=== PATIENT | female | born 1965 | race Caucasian/White ===

== ENCOUNTER 2020-10-02 15:42 | Inpatient (IN) | payer OTHER, SELFPAY ==
[2020-10-02] MEDS ORDERED: ASPIRIN 81 MG CHEWABLE TABLET ONE (20:30)
[2020-10-02] MEDS ORDERED: NITROGLYCERIN 0.4 MG/TAB SL ONE (20:31)
--- NOTE | 2020-10-02 20:32 | RAD REPORT ---
EXAM DESCRIPTION: Florencio Single View10/02/2020 8:25 pm CLINICAL HISTORY: Chest pain COMPARISON: 2017 FINDINGS: The lungs appear clear of acute infiltrate. The heart is normal size IMPRESSION: No acute abnormalities displayed
[2020-10-02 20:33] LABS: Absolute Lymphocytes (CBC) 2.1 K/uL (0.7-4.9); Basophils % 0.8 % (0-1.3); Hematocrit 40.8 % (36.0-45.0); Lymphocytes % 26.7 % (15.3-44.8); MPV 9.2 fL (7.6-11.3); RBC Red Blood Cell Count 4.69 M/uL (3.86-4.86)
[2020-10-02 20:34] LABS: Protime INR 0.93
[2020-10-02 20:48] LABS: ALT/SGPT 24 U/L (12-78); AST/SGOT 14 U/L (15-37); Albumin 3.4 g/dL (3.4-5.0); Alkaline Phosphatase 92 U/L (45-117); BUN Blood Urea Nitrogen 16 mg/dL (7-18); Bicarbonate 28 mmol/L (21-32); Bilirubin Direct < 0.1 mg/dL (0-0.2); Bilirubin Total 0.2 mg/dL (0.2-1.0); Glucose Level 114 mg/dL (74-106); Magnesium 2.2 mg/dL (1.8-2.4); NT PRO-BNP 124 pg/mL (<125); Protein, Total 7.5 g/dL (6.4-8.2); Sodium Level 144 mmol/L (136-145); Troponin (Emerg Dept Use Only) < 0.02 ng/mL (0.0-0.045)
--- NOTE | 2020-10-02 21:19 | RAD REPORT ---
EXAM DESCRIPTION: US - Abdomen Exam Limited - 10/02/2020 8:49 pm CLINICAL HISTORY: Abdominal pain. COMPARISON: None. FINDINGS: Multiple gallstones are present. Gallbladder wall is not thickened. Mild gallbladder diste ntion The biliary tree is normal caliber. IMPRESSION: Cholelithiasis without evidence cholecystitis Mild gallbladder distention
--- NOTE | 2020-10-02 22:50 | ER ---
Nurse's Notes [facility] Name: Maylin Carlton Age: 55 yrs Sex: Female : 1965 Arrival Date: 10/02/2020 Time: 15:42 Bed 26 Private MD: Diagnosis: Chest pain, unspecified;Cholelithiasis Presentation: 10/02 15:56 Chief complaint: Patient states: Mid CP that radiates into back off/on for 2 days, ll1 worse today. + SOB. No dizziness. Coronavirus screen: Client denies travel out of the [place] in the last 14 days. difficulty breathing, shortness of breath, Client presents with at least one sign or symptom that may indicate coronavirus-19. Standard/surgical mask placed on the client. Ebola Screen: Patient denies travel to an Ebola-affected area in the 21 days before illness onset. Initial Sepsis Screen: Does the patient meet any 2 criteria? No. Patient's initial sepsis screen is negative. Does the patient have a suspected source of infection? No. Patient's initial sepsis screen is negative. Risk Assessment: Do you want to hurt yourself or someone else? Patient reports no desire to harm self or others. Onset of symptoms was October 01, 2020. 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 - Social history:: Smoking status: Patient/guardian denies using tobacco, Stopped _ months ago .5. Screenin:07 Abuse screen: Denies threats or abuse. Denies injuries from another. Nutritional rr5 screening: No deficits noted. Tuberculosis screening: No symptoms or risk factors identified. Fall Risk IV access (20 points). Total Jarrell Fall Scale indicates No Risk (0-24 pts). Assessment: 20:30 General: Appears in no apparent distress. uncomfortable, Behavior is calm, cooperative, rr5 appropriate for age. Pain: Complains of pain in chest Pain radiates to back Pain currently is 6 out of 10 on a pain scale. Quality of pain is described as aching, Pain began gradually, Is intermittent. Neuro: Level of Consciousness is awake, alert, obeys commands, Oriented to person, place, time. Cardiovascular: Reports chest pain, Capillary refill < 3 seconds Patient's skin is warm and dry. Respiratory: Airway is patent Respiratory effort is even, unlabored, Respiratory pattern is regular, symmetrical. GI: No signs and/or symptoms were reported involving the gastrointestinal system. : No signs and/or symptoms were reported regarding the genitourinary system. EENT: No signs and/or symptoms were reported regarding the EENT system. Derm: Skin is intact, is healthy with good turgor, Skin is pink, warm \T\ dry. Musculoskeletal: Circulation, motion, and sensation intact. Capillary refill < 3 seconds. 20:53 Reassessment: Patient appears in no apparent distress at this time. Patient is alert, rr5 oriented x 3, equal unlabored respirations, skin warm/dry/pink. Patient states symptoms have improved. Pain: Pain currently is 2 out of 10 on a pain scale. 22:00 Reassessment: Patient appears in no apparent distress at this time. Patient and/or rr5 family updated on plan of care and expected duration. Pain level reassessed. Patient states feeling better. Patient states symptoms have improved. 23:30 Reassessment: Patient appears in no apparent distress at this time. Patient is alert, rr5 oriented x 3, equal unlabored respirations, skin warm/dry/pink. hospitalist at bedside. Vital Signs: 15:56 BP 157 / 100; Pulse 79; Resp 18; Temp 97.7; Pulse Ox 97% on R/A; Weight 99.79 kg; ll1 Height 5 ft. 0 in. (152.40 cm); Pain 8/10; 20:20 BP 164 / 91 RA; Pulse 75; Resp 20; Pulse Ox 98% ; rr5 20:21 BP 184 / 105 LA; Pulse 96; Resp 21; Pulse Ox 97% ; rr5 21:05 BP 153 / 84; Pulse 90; Resp 20; Pulse Ox 98% ; rr5 22:00 BP 161 / 80; Pulse 96; Resp 17; Pulse Ox 98% ; rr5 23:00 BP 165 / 95; Pulse 99; Resp 18; Pulse Ox 100% ; rr5 10/03 00:00 BP 157 / 75; Pulse 92; Resp 19; Pulse Ox 98% ; rr5 00:45 BP 154 / 95; Pulse 68; Resp 18; Pulse Ox 96% ; rr5 01:04 BP 147 / 71; rr5 10/02 15:56 Body Mass Index 42.97 (99.79 kg, 152.40 cm) ll1 ED Course: 10/02 15:42 Patient arrived in ED. ds1 15:55 Arm band placed on. EKG completed in triage. Results shown to MD. ll1 15:57 Triage completed. ll1 19:54 Yoshi Villalobos, RN is Primary Nurse. rr5 19:55 Og King PA is PHCP. cp 19:55 Ignacio Espitia MD is Attending Physician. cp 20:00 Patient has correct armband on for positive identification. Placed in gown. Bed in low rr5 position. Call light in reach. property assessment monitor on. Pulse ox on. NIBP on. 20:06 Inserted saline lock: 20 gauge in left forearm, using aseptic technique. Blood rr5 collected. 20:25 XRAY Chest (1 view) In Process Unspecified. EDMS 20:30 ultrasound at bedside. rr5 20:49 US Abdomen Limited: RUQ/epigastric In Process Unspecified. EDMS 21:31 CT Aorta for Dissection In Process Unspecified. EDMS 22:49 Parveen Rahman MD is Hospitalizing Provider. cp 23:27 Urine collected: clean catch specimen, clear. rr5 10/03 00:39 No provider procedures requiring assistance completed. Patient admitted, IV remains in rr5 place. intact, No redness/swelling at site. Patient maintains SpO2 saturation greater than 95% on room air. Administered Medications: 10/02 20:19 Drug: Aspirin Chewable Tablet 324 mg Route: PO; rr5 21:20 Follow up: Response: No adverse reaction rr5 20:19 Drug: Nitroglycerin 0.4 mg Route: Sublingual; rr5 21:30 Follow up: Response: No adverse reaction rr5 Outcome: 22:49 Decision to Hospitalize by Provider. cp 10/03 00:46 Admitted to Med/surg accompanied by tech, room 208, with chart, Report called to diamond rr5 Condition: stable Instructed on the need for admit. 01:07 Patient left the ED. rr5 Signatures: Dispatcher [employer] EDVivian Bowman1 Og King PA PA cp Roque, Raymond, RN RN rr5 Stuart Camarillo, RN RN ll1
--- NOTE | 2020-10-02 22:50 | EDPHYS ---
Physician Documentation [facility] Name: Maylin Carlton Age: 55 yrs Sex: Female : 1965 Arrival Date: 10/02/2020 Time: 15:42 Bed 26 Private MD: ED Physician Ignacio Espitia HPI: 10/02 20:05 This 55 yrs old Female presents to ER via Ambulatory with complaints of Chest cp Pain. 20:05 The patient or guardian reports chest pain that is located primarily in the substernal cp area. 20:05 Onset: 2 day(s) ago. The pain radiates to upper back between shoulder blades. The chest cp pain is described as sharp. Duration: The patient or guardian reports multiple episodes, that wax and wane. 20:05 Associated signs and symptoms: Pertinent positives: abdominal pain, shortness of cp breath, Pertinent negatives: cough, diaphoresis, lower extremity pain, lower extremity swelling, syncope. 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 - Social history:: Smoking status: Patient/guardian denies using tobacco, Stopped _ months ago .5. ROS: 20:10 Constitutional: Negative for body aches, chills, fever, poor PO intake. cp 20:10 Eyes: Negative for injury, pain, redness, and discharge. cp 20:10 Neck: Negative for pain with movement, pain at rest, stiffness. 20:10 Cardiovascular: Positive for chest pain, of the substernal, Negative for edema, palpitations. 20:10 Respiratory: Negative for cough, shortness of breath, wheezing. 20:10 Abdomen/GI: Positive for abdominal pain, Negative for vomiting, diarrhea, constipation. 20:10 Back: Positive for radiated pain, of the middle of upper back, Negative for injury or acute deformity. 20:10 Neuro: Negative for altered mental status, headache, numbness, weakness. 20:10 All other systems are negative. Exam: 17:54 ECG was reviewed by the Attending Physician. kdr 20:15 Constitutional: The patient appears in no acute distress, alert, awake, cp non-diaphoretic, non-toxic, well developed, well nourished, obese. 20:15 Head/Face: Normocephalic, atraumatic. cp 20:15 Eyes: Periorbital structures: appear normal, Conjunctiva: normal, no exudate, no injection, Sclera: no appreciated abnormality, Lids and lashes: appear normal, bilaterally. 20:15 ENT: External ear(s): are unremarkable, Nose: is normal, Mouth: Lips: moist, Oral mucosa: moist, Posterior pharynx: Airway: no evidence of obstruction, patent. 20:15 Neck: ROM/movement: is normal, is supple, without pain, no range of motions limitations. 20:15 Chest/axilla: Inspection: normal, Palpation: crepitus, is not appreciated, tenderness, that is mild, of the mid-sternal area. 20:15 Cardiovascular: Rate: normal, Rhythm: regular, Pulses: Pulses are 2+ in right radial artery and left radial artery. Edema: is not appreciated, JVD: is not appreciated. 20:15 Respiratory: the patient does not display signs of respiratory distress, Respirations: normal, no use of accessory muscles, no retractions, labored breathing, is not present, Breath sounds: are clear throughout, no decreased breath sounds, no stridor, no wheezing. 20:15 Abdomen/GI: Inspection: obese Bowel sounds: active, all quadrants, Palpation: soft, in all quadrants, mild abdominal tenderness, in the epigastric area and right upper quadrant, rebound tenderness, is not appreciated, voluntary guarding, is not appreciated, involuntary guarding, is not appreciated. 20:15 Back: pain, that is mild, of the thoracic area, ROM is painful, with all movement, CVA tenderness, is absent. 20:15 Skin: cellulitis, is not appreciated, no rash present. 20:15 Neuro: Orientation: is normal, Mentation: is normal, Cerebellar function: is grossly normal, Motor: moves all fours, strength is normal, Sensation: is normal. Vital Signs: 15:56 BP 157 / 100; Pulse 79; Resp 18; Temp 97.7; Pulse Ox 97% on R/A; Weight 99.79 kg; ll1 Height 5 ft. 0 in. (152.40 cm); Pain 8/10; 20:20 BP 164 / 91 RA; Pulse 75; Resp 20; Pulse Ox 98% ; rr5 20:21 BP 184 / 105 LA; Pulse 96; Resp 21; Pulse Ox 97% ; rr5 21:05 BP 153 / 84; Pulse 90; Resp 20; Pulse Ox 98% ; rr5 22:00 BP 161 / 80; Pulse 96; Resp 17; Pulse Ox 98% ; rr5 23:00 BP 165 / 95; Pulse 99; Resp 18; Pulse Ox 100% ; rr5 10/03 00:00 BP 157 / 75; Pulse 92; Resp 19; Pulse Ox 98% ; rr5 00:45 BP 154 / 95; Pulse 68; Resp 18; Pulse Ox 96% ; rr5 01:04 BP 147 / 71; rr5 10/02 15:56 Body Mass Index 42.97 (99.79 kg, 152.40 cm) ll1 MDM: 10/02 19:59 Patient medically screened. 20:00 Differential diagnosis: acute myocardial infarction, chest wall pain, cholecystitis, pancreatitis, pulmonary embolus, stable angina, thoracic aortic disection, unstable angina. 22:00 The patient was given aspirin in the Emergency Department. 22:00 Data reviewed: vital signs, nurses notes, lab test result(s), EKG, radiologic studies, CT scan, plain films, ultrasound, and as a result, I will admit patient. 22:45 Physician consultation: Drake CARDOZO was contacted at 22:45, regarding admission, to the telemetry unit. patient's condition. 22:45 Counseling: I had a detailed discussion with the patient and/or guardian regarding: the historical points, exam findings, and any diagnostic results supporting the discharge/admit diagnosis, the presence of at least one elevated blood pressure reading (>120/80) during this emergency department visit, lab results, radiology results. 10/02 19:57 Order name: Basic Metabolic Panel [facility] 10/02 19:57 Order name: CBC with Diff; Complete Time: 21:15 [facility] 10/02 21:15 Interpretation: Normal except: RDW 15.4; EOSINOPHIL % 6.1. 10/02 19:57 Order name: LFT's; Complete Time: 21:15 [facility] 10/02 21:57 Interpretation: Normal except: AST 14; GLOB 4.1; A/G 0.8. 10/02 19:57 Order name: Magnesium; Complete Time: 21:15 [facility] 10/02 19:57 Order name: NT PRO-BNP; Complete Time: 21:15 [facility] 10/02 19:57 Order name: PT-INR; Complete Time: 21:15 [facility] 10/02 19:57 Order name: Troponin (emerg Dept Use Only); Complete Time: 21:15 [facility] 10/02 21:16 Interpretation: TROPED < 0.02; Reviewed. 10/02 19:58 Order name: Basic Metabolic Panel; Complete Time: 21:15 [facility] 10/02 21:16 Interpretation: Normal except: CL 112; GLUC 114; GFR 81; CA 8.0. 10/02 20:10 Order name: Lipase; Complete Time: 21:15 10/02 20:10 Order name: Urine Microscopic Only 10/02 20:26 Order name: COVID-19 : Document "Date of Symptom Onset" if Symptomatic. 10/02 21:36 Order name: SARS-COV-2 RT PCR; Complete Time: 21:56 [facility] 10/02 23:27 Order name: Urine Microscopic Only [facility] 10/02 19:57 Order name: XRAY Chest (1 view); Complete Time: 21:15 [facility] 10/02 19:57 Order name: EKG; Complete Time: 19:58 [facility] 10/02 19:57 Order name: Cardiac monitoring; Complete Time: 20:06 [facility] 10/02 19:57 Order name: EKG - Nurse/Tech; Complete Time: 20:06 [facility] 10/02 19:57 Order name: IV Saline Lock; Complete Time: 20:06 [facility] 10/02 19:57 Order name: Labs collected and sent; Complete Time: 20:12 [facility] 10/02 19:57 Order name: O2 Per Protocol; Complete Time: 20:12 [facility] 10/02 20:10 Order name: US Abdomen Limited: RUQ/epigastric; Complete Time: 21:56 10/02 21:56 Interpretation: Report reviewed. 10/02 20:28 Order name: CT Aorta for Dissection 10/02 23:27 Order name: Urine Microscopic Only [facility] 10/02 23:34 Order name: Urine Dipstick--Ancillary (enter results) [facility] 10/02 23:34 Order name: Urine --Ancillary (enter results) 2 10/03 00:09 Order name: CONS Physician Consult EDMS 10/02 19:57 Order name: O2 Sat Monitoring; Complete Time: 20:12 rr5 10/02 20:10 Order name: Blood Pressure Recheck: bilateral upper extremities; Complete Time: 20:19 cp 10/02 20:10 Order name: Urine Dipstick-Ancillary (obtain specimen); Complete Time: 23:32 cp 10/02 20:10 Order name: Urine Test (obtain specimen); Complete Time: 23:32 cp EC:54 Rate is 74 beats/min. Rhythm is regular, Normal Sinus Rhythm with No ectopy. QRS Goff kdr is Normal. IN interval is normal. QRS interval is normal. QT interval is normal. Clinical impression: Normal ECG. Administered Medications: 20:19 Drug: Aspirin Chewable Tablet 324 mg Route: PO; rr5 21:20 Follow up: Response: No adverse reaction rr5 20:19 Drug: Nitroglycerin 0.4 mg Route: Sublingual; rr5 21:30 Follow up: Response: No adverse reaction rr5 Disposition: 10/03 05:48 Co-signature as Attending Physician, Ignacio Espitia MD. ma2 Disposition: 10/02/20 22:49 Hospitalization ordered by Parveen Rahman for Observation. Preliminary diagnosis are Chest pain, unspecified, Cholelithiasis. - Bed requested for Telemetry/MedSurg (observation). - Status is Observation. rr5 - Condition is Stable. - Problem is new. - Symptoms have improved. Signatures: Dispatcher [employer] EDMN Mikael Sutherland MD MD kdr Og King PA PA cp Ignacio Espitia MD MD ma2 Dimitri De La Torre RN RN rv Yoshi Villalobos RN RN rr5 Stuart Camarillo RN RN ll1 Corrections: (The following items were deleted from the chart) 10/02 20:55 20:26 CORONAVIRUS ordered. EDMN EDMS 21:16 21:16 Normal except: CL 112; GLUC 114; GFR 81. cp cp 10/03 00:19 10/02 22:49 Hospitalization Ordered by Parveen Rahman MD for Observation. Preliminary rv diagnosis is Chest pain, unspecified; Cholelithiasis. Bed requested for Telemetry/MedSurg (observation). Status is Observation. Condition is Stable. Problem is new. Symptoms have improved. cp 10/03 01:07 00:19 10/02/2020 22:49 Hospitalization Ordered by Parveen Rahman MD for Observation. rr5 Preliminary diagnosis is Chest pain, unspecified; Cholelithiasis. Bed requested for Telemetry/MedSurg (observation). Status is Observation. Condition is Stable. Problem is new. Symptoms have improved. rv
[2020-10-02 23:40] LABS: Urine Blood TRACE (Negative); Urine Glucose NEGATIVE (Negative); Urine Protein NEGATIVE (NEG)
[2020-10-03 00:03] LABS: Urine Bacteria <20 /HPF (<20)
[2020-10-03] MEDS ORDERED: NITROGLYCERIN 0.4 MG/TAB SL PRN (01:48)
[2020-10-03] MEDS ORDERED: ACETAMINOPHEN 500 MG TAB PO PRN (01:48)
[2020-10-03] MEDS ORDERED: MORPHINE 2 MG/ML SYR IV PRN (01:48)
[2020-10-03] MEDS ORDERED: ONDANSETRON 4 MG/2 ML VIAL IV PRN (01:48)
[2020-10-03 02:12] VITALS: BMI 42.9
--- NOTE | 2020-10-03 03:05 | P.HP ---
Certification for Inpatient Patient admitted to: Observation With expected LOS: <2 Midnights Patient will require the following post-hospital care: None Practitioner: I am a practitioner with admitting privileges, knowledge of patient current condition, hospital course, and medical plan of care. Services: Services provided to patient in accordance with Admission requirements found in Title 42 Section 412.3 of the Code of Federal Regulations Patient History Date of Service: 10/02/20 Reason for admission: chest pain History of Present Illness: Ms. Carlton is a 55 yo female with asthma who presents with 8/10 intermittent left sided squeezing chest pain radiating to her back that started when she was sitting down. This has been happening for the past 2 days. No relief with antacids. She reports SOB. She denies lightheadedness, diaphoresis, nausea, vomiting, dizziness, palpitations. She used to smoke 1ppd, quit 2 weeks ago. Denies family history of heart disease. No previous diagnosis of HTN, but BP is elevated on admission. CXR wnl. Abdominal ultrasound with cholelithiasis and no evidence of cholecystitis. Allergies No Known Allergies Allergy (Verified 10/03/20 01:56) Home Medications: Unobtainable 10/03/20 - Past Medical/Surgical History Has patient received pneumonia vaccine in the past: No Diabetic: No -: Asthma - Social History Smoking Status: Former smoker Alcohol use: No CD- Drugs: No Caffeine use: No Place of Residence: Home Review of Systems General: Unremarkable Eyes: Unremarkable ENT: Unremarkable Respiratory: Shortness of Breath, As per HPI Cardiovascular: Chest Pain, As per HPI Gastrointestinal: Unremarkable Genitourinary: Unremarkable Musculoskeletal: Unremarkable Integumentary: Unremarkable Neurological: Unremarkable Lymphatics: Unremarkable Physical Examination - Vital Signs Temperature: 97.1 F Blood Pressure: 166/79 Pulse: 63 Respirations: 18 Pulse Ox (%): 98 - Physical Exam General: Alert, In no apparent distress, Oriented x3, Cooperative HEENT: Atraumatic, Normocephalic, PERRLA, Mucous membr. moist/pink, EOMI, Sclerae nonicteric Neck: Supple, 2+ carotid pulse no bruit, JVD not distended, No Thyromegaly, No LAD Respiratory: Clear to auscultation bilaterally, Normal air movement Cardiovascular: No edema, Normal pulses, Regular rate/rhythm, Normal S1 S2, No gallops, No rubs, No murmurs Capillary refill: <2 Seconds Gastrointestinal: Normal bowel sounds, Soft and benign, Non-distended, No ascites, No tenderness, No masses, No rebound, No guarding Musculoskeletal: No clubbing, No swelling, No contractures, No erythema, No tenderness, No warmth Integumentary: No rashes, No breakdown, No significant lesion, No tenderness/swelling, No erythema, No warmth, No cyanosis Neurological: Normal gait, Normal speech, Normal strength at 5/5 x4 extr, Normal tone, Sensation intact, Cranial nerves 3-12 intact, Normal affect Lymphatics: No axilla or inguinal lymphadenopathy - Studies Laboratory Data (last 24 hrs) 10/02/20 20:04: Lipase 93 10/02/20 20:04: PT 10.7, INR 0.93 10/02/20 20:04: WBC 7.70, Hgb 13.7, Hct 40.8, Plt Count 254 10/02/20 20:04: Sodium 144, Potassium 4.0, BUN 16, Creatinine 0.75, Glucose 114 H, Magnesium 2.2, Total Bilirubin 0.2, AST 14 L, ALT 24, Alkaline Phosphatase 92 Assessment and Plan - Problems (Diagnosis) (1) Chest pain Current Visit: Yes Status: Acute Qualifiers: Chest pain type: unspecified Qualified Code(s): R07.9 - Chest pain, unspecified (2) Elevated blood pressure reading Current Visit: Yes Status: Acute (3) Asthma Current Visit: Yes Status: Chronic Qualifiers: Asthma severity: unspecified severity Asthma persistence: unspecified Asthma complication type: unspecified Qualified Code(s): J45.909 - Unspecified asthma, uncomplicated - Plan - no previous diagnosis of high blood pressure, BP elevated. no PCP. -ASA and nitroglycerin given in Er -lipid panel, TSH/T4, and A1c pending -morphine and nitro PRN for chest pain, metoprolol for BP -trend troponin and EKG, initial trops and EKG wnl -cardiology consulted Discharge Plan: Home Plan to discharge in: 24 Hours - Advance Directives Does patient have a Living Will: No Does patient have a Durable POA for Healthcare: No - Code Status/Comfort Care Code Status Assessed: Yes (full code) Critical Care: No Time Spent Managing Pts Care (In Minutes): 70
[2020-10-03 03:27] LABS: Thyroid Stimulating Hormone 2.78 uIU/mL (0.360-3.740)
[2020-10-03 04:23] LABS: Urine Appearance CLEAR; Urine Bilirubin NEGATIVE (NEG); Urine Blood NEGATIVE (Negative); Urine Color YELLOW; Urine Glucose NEGATIVE (Negative); Urine Protein NEGATIVE (NEG); Urine Specific Gravity >=1.030 (1.005-1.030); Urine pH 7.5 (5.0-7.0)
[2020-10-03 04:25] LABS: Urine Microscopic Reflex NO UMIC
[2020-10-03] MEDS ORDERED: METOPROLOL TAR 25 MG TAB PO SCH (06:00)
[2020-10-03] MEDS ORDERED: ENOXAPARIN 40 MG/0.4 ML SQ SCH (09:00)
[2020-10-03] MEDS ORDERED: ALBUTEROL INHALER 60 PUFF/8 GM IH PRN (09:52)
--- NOTE | 2020-10-03 10:08 | P.DS ---
Admission Date: 10/03/20 Discharge Date: 10/03/20 Disposition: ROUTINE DISCHARGE Discharge Condition: FAIR Reason for Admission: chest pain Brief History of Present Illness: History of Present Illness: Ms. Carlton is a 55 yo female with asthma who presents with 8/10 intermittent left sided squeezing chest pain radiating to her back that started when she was sitting down. This has been happening for the past 2 days. No relief with antacids. She reports SOB. She denies lightheadedness, diaphoresis, nausea, vomiting, dizziness, palpitations. She used to smoke 1ppd, quit 2 weeks ago. Denies family history of heart disease. No previous diagnosis of HTN, but BP is elevated on admission. CXR wnl. Abdominal ultrasound with cholelithiasis and no evidence of cholecystitis. Allergies Hospital Course: Patient admitted for left-sided chest pain. She admits to history of asthma. Chest pain was radiating to the shoulder and under the armpit. Pain significantly improved but now some ache in the axillary area. She is tolerating p.o. well. Serial set of cardiac enzymes were negative as well as unremarkable EKG. Physical examination today shows clear lungs with no evidence of wheezing. Patient will be discharged home today to follow with her PCP in 1 week. She has been advised to return back to the ED if recurrent chest pain. Vital Signs/Physical Exam: Temp Pulse Resp BP Pulse Ox 98.9 F 73 16 149/90 H 96 10/03/20 04:00 10/03/20 05:29 10/03/20 04:00 10/03/20 05:29 10/03/20 04:00 General: Alert, In no apparent distress, Oriented x3, Obese HEENT: Atraumatic, Normocephalic, PERRLA Neck: Supple, 2+ carotid pulse no bruit, JVD not distended Respiratory: Clear to auscultation bilaterally, Normal air movement Cardiovascular: No edema, Normal pulses, Regular rate/rhythm, Normal S1 S2 Capillary refill: <2 Seconds Gastrointestinal: Normal bowel sounds, Soft and benign, Non-distended, No ascites Musculoskeletal: No clubbing, No swelling Integumentary: No rashes, No breakdown Neurological: Normal gait, Normal speech, Normal strength at 5/5 x4 extr Laboratory Data at Discharge: WBC 7.70 K/uL (4.3-10.9) 10/02/20 20:04 Hgb 13.7 g/dL (12.0-15.0) 10/02/20 20:04 Hct 40.8 % (36.0-45.0) 10/02/20 20:04 Plt Count 254 K/uL (152-406) 10/02/20 20:04 PT 10.7 SECONDS (9.5-12.5) 10/02/20 20:04 INR 0.93 10/02/20 20:04 Sodium 144 mmol/L (136-145) 10/02/20 20:04 Potassium 4.0 mmol/L (3.5-5.1) 10/02/20 20:04 BUN 16 mg/dL (7-18) 10/02/20 20:04 Creatinine 0.75 mg/dL (0.55-1.3) 10/02/20 20:04 Glucose 114 mg/dL (74-106) H 10/02/20 20:04 Magnesium 2.2 mg/dL (1.8-2.4) 10/02/20 20:04 Total Bilirubin 0.2 mg/dL (0.2-1.0) 10/02/20 20:04 AST 14 U/L (15-37) L 10/02/20 20:04 ALT 24 U/L (12-78) 10/02/20 20:04 Alkaline Phosphatase 92 U/L (45-117) 10/02/20 20:04 Troponin I < 0.02 ng/mL (0.0-0.045) 10/03/20 02:38 Lipase 93 U/L (73-393) 10/02/20 20:04 Home Medications: Albuterol Inhaler [Ventolin Inhaler*] 2 puff IH Q6H PRN hfa.aer.[email or web address] 10/03/20 Diet: Regular Activity: Ad kortney Followup: NONE,NONE [Primary Care Provider] - Physician Review: Patient Assessed, Agree with Above Assessment and Plan Time spent managing pt's care (in minutes): 35
[2020-10-03 10:17] VITALS: BP 184/92; TEMP 97.8
[2020-10-03 10:32] VITALS: O2SAT 96
--- NOTE | 2020-10-03 11:12 | EKG ---
Test Date: 2020-10-02 Test Time: 15:51:31 Special Events Manager: BENJAMIN MEASUREMENT RESULTS: Intervals: Rate: 74 UT: 140 QRSD: 78 QT: 390 QTc: 432 Winifred: P: 19 UT: 140 QRS: 52 T: 34 INTERPRETIVE STATEMENTS: Normal sinus rhythm Normal ECG Compared to ECG 08/11/2017 07:26:42 No significant changes Electronically Signed On 10-03-20 11:11:16 CDT by Cecilio Esparza
--- NOTE | 2020-10-03 13:15 | CON ---
Date of Consultation: 10/03/2020 Reason For Consultation: Chest pain. History Of Present Illness: Ms. Carlton is a 55-year-old woman without any significant past cardiac hi story. She has a history of obesity, asthma, hypertension for which she does not take any medicine. She came in last night with left lateral anterior chest pain that is sharp, stabbing, radiating to t he left shoulder did not feel like pressure, was not exertional. It lasted for 48 hours without any nausea, vomiting, diaphoresis, shortness of breath, PND, orthopnea, pedal edema, palpitations, or syn cope. She denied any fever or chills. She continues to have some chest pain, but it is much improve d. Yet, she has had a normal EKG, normal chest x-ray and normal CT angiogram of the chest and normal troponin, normal BNP. Past Medical History: As stated above. Review of Systems: Negative. Social History: Positive for tobacco, which she quit. Family History: Negative for heart disease. Physical Examination: Vital signs: Stable. She was afebrile. HEENT: Negative. Neck: Supple without adenopathy, JVD, thyromegaly, or bruit. Chest: Clear to auscultation and percussion. Cardiac: Revealed a regular rhythm and rate. No murmur, gallops, or rubs. Abdomen: Obese, but benign. Extremities: Revealed no clubbing, cyanosis, or edema. Diagnostic Data: Within normal limits. Impression And Plan: Ms. Carlton has low risk factors for heart disease including her obesity and her hypertension. Had a lipid profile, but I am assuming a lipid profile is at normal. Nevertheless, I am comfortable with her going home today. Make arrangements for her to have an echocardiogram ____ as an outpatient. This was discussed with the patient in detail. I think she needs to be on so me antihypertensive regimen and I will leave that up to Dr. Wasserman. JOE/PHYLLIS Voice ID: [id number] Report ID: [id number]
--- NOTE | 2020-10-03 18:20 | RAD REPORT ---
EXAM DESCRIPTION: CT - Angio Aorta For Dissection - 10/03/2020 6:34 am CLINICAL HISTORY: Back pain;Chest pain;SOB. COMPARISON: None. TECHNIQUE: CTA of the chest, abdomen, and pelvis was performed following intravenous administration of iodinated contrast. Oral contrast was not administered. Axial, coronal, and sagittal reconstructio ns were created and sent to PACS. 3D reconstructions were created on an independent workstation and sent to PACS for evaluation. This exam was performed according to our departmental dose-optimization program, which includes autom ated exposure control, adjustment of the mA and/or kV according to patient size and/or use of iterati ve reconstruction technique. FINDINGS: Vascular: No aortic aneurysm or dissection. No central pulmonary embolism. The major visce ral vessels are patent. Lungs and pleura: Small calcified granuloma in the left upper lobe, likely sequela of prior healed gr anulomatous disease. Normal right perifissural nodule/lymph node. No pulmonary consolidation. No pleu ral effusion. No pneumothorax. Mediastinum and neck: No mediastinal lymphadenopathy identified by CT size criteria. Unremarkable tobin earance of the thyroid gland. Cardiac: No cardiomegaly or pericardial effusion. Hepatobiliary: No concerning hepatic lesion identified. The hepatic and portal veins are patent. Smal l calcified gallstones in the gallbladder. No gallbladder wall thickness or surrounding inflammatory changes. No biliary ductal dilatation. Pancreas: Unremarkable. Spleen: Unremarkable. Gastrointestinal: No evidence of bowel obstruction or perienteric inflammation. The appendix is haley l. Small amount of fecal material in the colon. Adrenals: No abnormality identified in either adrenal gland. Renal: No concerning parenchymal abnormality in either kidney. No hydronephrosis or urolithiasis. Bladder/Reproductive: Unremarkable appearance of the urinary bladder by CT technique. Small uterine f ibroids. Lymphatics: No lymphadenopathy identified by CT size criteria. Musculoskeletal: No concerning osseous lesion identified. Fluid / peritoneum: No significant free fluid. No free intraperitoneal air identified. IMPRESSION 1. No aortic aneurysm or dissection. 2. No pulmonary consolidation or pleural effusion. 3. Cholelithiasis without evidence of acute cholecystitis by CT. No biliary ductal dilatation. Electronically signed by: Kasandra Grossman MD 10/02/2020 9:46 PM CDT Due to temporary technical issues with the PACS/Fluency reporting system, reports are being signed by the in house radiologists without review as a courtesy to insure prompt reporting. The interpreting radiologist is fully responsible for the content of the report.
== END 2020-10-03 11:50 | disposition home or self-care (01) | DRG 313 ==
LOC: ER 15:42 → ERHOLD 10-03 00:05 → 2ND 10-03 01:00 → OBSVTOIN 10-03 08:30
PROVIDERS: ADMIT Internal Medicine Nephrology; ATTEND Internal Medicine
DX: R07.9 Chest pain, unspecified (principal); Z68.41 Body mass index [BMI] 40.0-44.9, adult; E66.9 Obesity, unspecified; J45.909 Unspecified asthma, uncomplicated; R03.0 Elevated blood-pressure reading, without diagnosis of hypertension; Z87.891 Personal history of nicotine dependence; Z79.899 Other long term (current) drug therapy; Z20.822 Contact with and (suspected) exposure to COVID-19
CPT/HCPCS: 36415; 71045; 71275; 74175; 76705; 80048; 80076; 81003; 81015; 81025; 83036; 83690; 83735; 83880; 84439; 84443; 84484; 85025; 85610; 93005; 94760; 99285; G0378; J1650; Q9967; U0003

== ENCOUNTER 2023-03-09 13:09 | Emergency (ER) | payer OTHER ==
--- NOTE | 2023-03-09 14:30 | RAD REPORT ---
EXAM DESCRIPTION: RADChest Single View03/09/2023 2:08 pm CLINICAL HISTORY: Cough;Dyspnea COMPARISON: Chest Single View dated 10/02/2020; Chest Single View dated 08/11/2017; Chest Pa And Lat (2 Views) dated 08/20/2016; Chest Single View dated 06/24/2016 TECHNIQUE: Portable AP view of the chest. FINDINGS: Left Port-A-Cath in place with catheter tip projecting over the mid SVC. The lungs are tereza ar. No pneumothorax or effusion. The cardiomediastinal contours are unremarkable. IMPRESSION: No acute cardiopulmonary process.
--- NOTE | 2023-03-09 14:33 | ER ---
Nurse's Notes [facility] Name: Maylin Carlton Age: 57 yrs Sex: Female : 1965 Arrival Date: 03/09/2023 Time: 13:09 Bed IW1 Private MD: Diagnosis: Coronavirus infection, unspecified Presentation: 03/09 13:31 Chief complaint: Patient states: she has tested positive for COVID, but is a cancer ap3 patient and had her last Chemo treatment Monday03/06/23. Patient reports congestion, headache and shortness of breath. Coronavirus screen: Client reports previous positive COVID test result. Ebola Screen: No symptoms or risks identified at this time. Initial Sepsis Screen: Does the patient meet any 2 criteria? HR > 90 bpm. Does the patient have a suspected source of infection? No. Patient's initial sepsis screen is negative. Risk Assessment: Do you want to hurt yourself or someone else? Patient reports no desire to harm self or others. Onset of symptoms was March 09, 2023. 13:31 Method Of Arrival: Ambulatory ap3 13:31 Acuity: JODI 3 ap3 Triage Assessment: 13:35 General: Appears in no apparent distress. Behavior is cooperative, appropriate for age, ap3 anxious. Pain: Complains of pain in generalized body aches. EENT: Reports nasal congestion nasal discharge. Neuro: Level of Consciousness is awake, alert, obeys commands, Oriented to person, place, time, situation. Cardiovascular: Patient's skin is warm and dry. Respiratory: Reports shortness of breath Airway is patent Respiratory effort is even, unlabored, Respiratory pattern is regular, symmetrical, Onset: The symptoms/episode began/occurred gradually, the patient has mild shortness of breath. 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 - Social history:: Smoking status: Patient/guardian denies using tobacco, Stopped _ months ago 2. Screenin:36 [facility] ED Fall Risk Assessment (Adult) History of falling in the last 3 months, ap3 including since admission No falls in past 3 months (0 pts). Abuse screen: Denies threats or abuse. Nutritional screening: No deficits noted. Tuberculosis screening: No symptoms or risk factors identified. Assessment: 14:38 Cardiovascular: Rhythm is regular. ap3 14:38 Respiratory: Airway is patent Breath sounds are clear. ap3 Vital Signs: 13:31 Pulse 101; Resp 20; Temp 98.4; Pulse Ox 99% ; Weight 100.7 kg; Height 5 ft. 1 in. ; ap3 Pain 1/10; 13:36 BP 110 / 70; ap3 13:31 Body Mass Index 41.95 (100.70 kg, 154.94 cm) ap3 13:31 Pain Scale: Adult ap3 ED Course: 13:12 Patient arrived in ED. ts1 13:23 Rosa Yost FNP is PHCP. jh7 13:23 Agus Bob DO is Attending Physician. jh7 13:34 Triage completed. ap3 13:36 Arm band placed on right wrist. ap3 14:10 XRAY Chest (1 view) In Process Unspecified. EDMS 14:38 No provider procedures requiring assistance completed. Patient did not have IV access ap3 during this emergency room visit. 14:39 Provided Education on: discharge instructions. ap3 14:39 Patient has correct armband on for positive identification. ap3 Administered Medications: No medications were administered Medication: 13:36 VIS not applicable for this client. ap3 Outcome: 14:33 Discharge ordered by . Concepción 14:38 Discharged to home ambulatory, with family. ap3 14:38 Condition: good 14:38 Discharge instructions given to patient, family, Instructed on discharge instructions, follow up and referral plans. medication usage, Demonstrated understanding of instructions, follow-up care, medications, Prescriptions given X 2. 14:39 Patient left the ED. ap3 Signatures: Dispatcher [employer] EDMS Rose Robison RN RN ap3 Rosa Yost FNP FNP jh7 Simpson, Tanya, PAS PAS ts1
--- NOTE | 2023-03-09 14:33 | EDPHYS ---
Physician Documentation [facility] Name: Maylin Carlton Age: 57 yrs Sex: Female : 1965 Arrival Date: 03/09/2023 Time: 13:09 Bed IW1 Private MD: ED Physician Agus Bob HPI: 03/09 13:34 This 57 yrs old Female presents to ER via Ambulatory with complaints of Shortness Of jh7 Breath, Fever, Tested positive for covid. 13:34 The patient has shortness of breath with light activity. Onset: The symptoms/episode jh7 began/occurred yesterday. Associated signs and symptoms: Pertinent positives: non-productive cough, shortness of breath. Patient reports that she tested positive for COVID this morning. Complains of mild shortness of breath, cough, and fever a few days ago that has resolved. Reports that she had chemotherapy on Monday and wanted to get evaluated.. 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 - Social history:: Smoking status: Patient/guardian denies using tobacco, Stopped _ months ago 2. ROS: 13:34 Eyes: Negative for injury, pain, redness, and discharge, ENT: Negative for injury, jh7 pain, and discharge, Neck: Negative for injury, pain, and swelling, Cardiovascular: Negative for chest pain, palpitations, and edema, Abdomen/GI: Negative for abdominal pain, nausea, vomiting, diarrhea, and constipation, MS/Extremity: Negative for injury and deformity, Skin: Negative for injury, rash, and discoloration, Neuro: Negative for headache, weakness, numbness, tingling, and seizure. 13:34 Constitutional: Positive for malaise. 13:34 Respiratory: Positive for cough, shortness of breath. 13:34 All other systems are negative. Exam: 13:34 Constitutional: This is a well developed, well nourished patient who is awake, alert, jh7 and in no acute distress. Head/Face: Normocephalic, atraumatic. Eyes: Pupils equal round and reactive to light, extra-ocular motions intact. Lids and lashes normal. Conjunctiva and sclera are non-icteric and not injected. Cornea within normal limits. Periorbital areas with no swelling, redness, or edema. Neck: Trachea midline, no thyromegaly or masses palpated, and no cervical lymphadenopathy. Supple, full range of motion without nuchal rigidity, or vertebral point tenderness. No Meningismus. Cardiovascular: Regular rate and rhythm with a normal S1 and S2. No gallops, murmurs, or rubs. Normal PMI, no JVD. No pulse deficits. Respiratory: Lungs have equal breath sounds bilaterally, clear to auscultation and percussion. No rales, rhonchi or wheezes noted. No increased work of breathing, no retractions or nasal flaring. Abdomen/GI: Soft, non-tender, with normal bowel sounds. No distension or tympany. No guarding or rebound. No evidence of tenderness throughout. Skin: Warm, dry with normal turgor. Normal color with no rashes, no lesions, and no evidence of cellulitis. MS/ Extremity: Pulses equal, no cyanosis. Neurovascular intact. Full, normal range of motion. Neuro: Awake and alert, GCS 15, oriented to person, place, time, and situation. Motor strength 5/5 in all extremities. Sensory grossly intact. Normal gait. 13:34 Respiratory: the patient does not display signs of respiratory distress, Respirations: normal, Breath sounds: are clear throughout, Respiratory rate: 18 Vital Signs: 13:31 Pulse 101; Resp 20; Temp 98.4; Pulse Ox 99% ; Weight 100.7 kg; Height 5 ft. 1 in. ; ap3 Pain 1/10; 13:36 BP 110 / 70; ap3 13:31 Body Mass Index 41.95 (100.70 kg, 154.94 cm) ap3 13:31 Pain Scale: Adult ap3 MDM: 13:24 Patient medically screened. jh7 14:35 Differential diagnosis: Bronchitis pneumonia, COVID. Antibiotic administration: Not jh7 indicated. Data interpreted: Pulse oximetry: is 99 %. Interpretation: normal. Data reviewed: vital signs, nurses notes, radiologic studies, plain films. Care significantly affected by the following chronic conditions: Cancer. Counseling: I had a detailed discussion with the patient and/or guardian regarding the historical points, exam findings, and any diagnostic results supporting the discharge/admit diagnosis, to return to the emergency department if symptoms worsen or persist or if there are any questions or concerns that arise at home. ED course: The patient was calm, hemodynamically stable, and in no distress during her visit. Informed her that her chest x-ray was negative and that symptomatic treatment and rest at home would be appropriate. Advised her to follow-up with her PCP.. 03/09 13:39 Order name: XRAY Chest (1 view); Complete Time: 14:32 [facility] Administered Medications: No medications were administered Disposition: 18:30 Co-signature as Attending Physician, Agus Bob DO I was immediately available on-site ms3 in the Emergency Department for consultation in the care of the patient. Disposition Summary: 03/09/23 14:33 Discharge Ordered Location: Home [facility] Problem: new [facility] Symptoms: are unchanged [facility] Condition: Stable [facility] Diagnosis - Coronavirus infection, unspecified [facility] Followup: [facility] - With: Private Physician - When: 2 - 3 days - Reason: Recheck today's complaints Discharge Instructions: - Discharge Summary Sheet [facility] - COVID-19 [facility] - 10 Things You Can Do to Manage Your COVID-19 Symptoms at Home - [facility] (01/22/2021) [facility] Forms: - Medication Reconciliation Form [facility] - Thank You Letter [facility] - Patient Portal Instructions [facility] - Leadership Thank You Letter [facility] Prescriptions: - ProAir RespiClick 90 mcg/actuation Inhalation Aerosol Powder, Breath Activated - administer 2 puff by INHALATION route every 4 to 6 hours As needed as needed [facility] for shortness of breath; 1 Each; Refills: 0, Product Selection Permitted - Tessalon Perles 100 mg Oral Capsule - take 1 capsule by ORAL route every 8 hours As needed; 15 capsule; Refills: 0, jh7 Product Selection Permitted Signatures: Dispatcher [employer] Rose Adame RN RN ap3 Agus Bob DO DO ms3 Rosa Yost FNP DEVELOPMENT TECHNICIAN [facility]
[2023-03-09 15:10] VITALS: TEMP 98.4; O2SAT 99
[2023-03-09 15:15] VITALS: BP 110/70
== END 2023-03-09 14:39 | disposition home or self-care (01) ==
LOC: ER 13:09
DX: U07.1 COVID-19 (principal); I10 Essential (primary) hypertension
CPT/HCPCS: 71045; 99283

== ENCOUNTER 2024-08-04 06:48 | Inpatient (IN) | payer OTHER ==
--- OUTSIDE RECORDS SUMMARY | 2024-08-04 06:51 | XMS REPORT | Continuity of Care Document ---
Author Name Unknown Address [address] [facility] [address] [place] [address] [facility] Address [address] [facility] [place] [address] Care Team Providers Care Director Of Instructional Technology Name Role Phone [phone] Primary Care Physician Unavailab le SYSTEM, PROVIDER NOT IN Attending Clinician Unav ailable ARMAND WATKINS Attending Clinician Unavailable MD DANIELLE Attending Clinician Unavailab le LAB90 Attending Clinician Unavailable MONICA PITTS Attending Clinician Unavailable PILO DE JESUS Attending Clinician Unavailable LUCY DE GUZMAN Attending Clinician Unavailable NICK MIXON Attending Clinician UnavailIRLANDA Hassan Attending Clinician Unavailable NT90 Attending Clinician Unavailable RAFAL VIDAL Attending Clinician Unava ilGAEL Browning Attending Clinician Claudia Lola Lombardi Attending Clinician Unavailab Kel Holt Attending Clinician Unavail able Vianey Louie Attending Clinician Unavailable LOLA SCOTT Attending Clinician Unavailab le Physician, No Primary or Family Admitting Clinic mario Unavailable Payers Payer Name Policy Type Policy Number Effective Date Expirati on Date Source [employer] 94 9 [id number] 2024 00:00:00 Problems Condition Name Condition Details Condition Category Status Onset Date Resolution Date Last Treatment Date Treating Clinician Comments Source Primary hypertensi on Primary hypertensi on Disease Active 01-13 00:00: 00 Cece Guyold - Externa l Mild persistent asthma without complicati on (HHS-HCC) Mild persistent asthma without complicati on (HHS-HCC) Disease Active 01-13 00:00: 00 Cece Sefarzadold - Externa l Malignant neoplasm of cervix (multi HCC) Malignant neoplasm of cervix (multi HCC) Disease Active 01-13 00:00: 00 Cece Guyold - Externa l Allergies, Adverse Reactions, Alerts Allergy Name Allergy Type Status Severity Reaction(s) Onset Date Inactive Date Treating Clinician Comments Source No Known Allergie s DA Active U 04-04 00:00: 00 [facility] Social History Social Habit Start Date Stop Date Quantity Comments Source History of tobacco use 1994-05-10 00:00:00 Cigarette Smoker Cece Sabillon - External Gender identity Saniya Sabillon - External Sexual orientation K trae Sabillon - External ASSERTION Not Cece Sabillon - External Alcoholic beverage intake 2024-06-13 00:00:00 2024-06-13 00:00:00 Lifetime non-drinker (finding) Cece Sabillon - External Cigarettes smoked current (pack per day) - Reported 2024-06-13 00:00:00 2024-06-13 00:00:00 Cece Sabillon - External Cigarette pack-years 2024-06-13 00:00:00 2024-06-13 00:00:00 Cece Sabillon - External Tobacco use and exposure 2024-06-13 00:00:00 2024-06-13 00:00:00 Smokeless tobacco non-user Cece Sabillon - External History of Social function 2023-03-27 00:00:00 2023-03-27 00:00:00 Cece Sabillon - External Alcohol intake 2023-01-13 00:00:00 2023-01-13 00:00:00 Lifetime non-drinker (finding) Cece Sabillon - External Sex 2022-11-16 12:07:47 2022-11-16 12:07:47 Female (finding) Cece Sabillon - External Sex assigned at 1965 00:00:00 1965 00:00:00 Cece Sabillon - External Smoking Status Start Date Stop Date Source Smokes tobacco daily 2024-06-13 00:00:00 Cece Sabillon - External Medications Ordered Medication Name Filled Medication Name Start Date Stop Date Current Medication? Ordering Clinician Indication Dosage Frequency Signature (SIG) Comments Components Source Albuterol Sulfate 108 (90 Base) MCG/ACT inhalation AEROSOL POWDER, BREATH ACTIVATED 2023-07 14:26: 13 Yes Inhale into the lungs Cece medeiros Bupropion HCL XL 150 MG OR TB24 2023-07 00:00: 00 Yes [id number] 150mg QD Take 1 tablet (150 mg total) by mouth daily. Cece Campoa mala Losartan Potassium-H CTZ 100-12.5 MG oral Tablet 2023-07 00:00: 00 Yes [id number] 1{tbl} QD Take 1 tablet by mouth daily. Cece medeiros Albuterol HFA 108 (90 Base) MCG/ACT IN AERS 2023-07 00:00: 00 Yes [id number] 2{puff} Q.25D Inhale 2 puffs into the lungs every 6 hours as needed. Cece Campoa mala Losartan Potassium-H CTZ 100-12.5 MG oral Tablet 2023-07 0-30 00:00: 00 06-13 00:00 :00 No [id number] 1{tbl} QD Take 1 tablet by mouth daily. Cece Campoa mala Albuterol Sulfate 108 (90 Base) MCG/ACT inhalation AEROSOL POWDER, BREATH ACTIVATED 12-10 13:49: 19 Yes Inhale into the lungs Cece Campooswaldo medeiros Losartan Potassium 25 MG oral Tablet 6-03 00:00: 00 Yes [id number] 25mg QD Take 1 tablet (25 mg total) by mouth nightly as needed (for BP > 140/80). Cece medeiros Albuterol HFA 108 (90 Base) MCG/ACT IN [facility] 5-21 00:00: 00 Yes [id number] 2{puff} Q.25D Inhale 2 puffs into the lungs every 6 hours as needed. Cece medeiros Losartan Potassium-H CTZ 50-12.5 MG oral Tablet 4- 00:00: 00 Yes [id number] 1{tbl} Take 1 tablet by mouth daily. Cece medeiros Albuterol HFA 108 (90 Base) MCG/ACT IN [facility] 4- 00:00: 00 Yes [id number] 2{puff} Q.25D Inhale 2 puffs into the lungs every 6 hours as needed. Cece medeiros Albuterol HFA 108 (90 Base) MCG/ACT IN [facility] 2022-07 2- 00:00: 00 Yes [id number] 2{puff} Q.25D Inhale 2 puffs into the lungs every 6 hours as needed. Cece medeiros Pseudoeph-B romphen-DM 30-2-10 MG/5ML oral Syrup 2022-07 2- 00:00: 00 06-13 00:00 :00 No [id number] 10mL Q.25D Take 10 mL by mouth 4 times daily as needed. Cece medeiros Albuterol HFA 108 (90 Base) MCG/ACT IN [facility] 2022-07 0-30 00:00: 00 07-07 00:00 :00 No [id number] 2{puff} Q.25D Inhale 2 puffs into the lungs every 6 hours as needed. Cece medeiros Lisinopril 10 MG oral Tablet 2022-07 0-25 00:00: 00 11-05 00:00 :00 No [id number] 20mg TAKE 2 TABLETS BY MOUTH EVERY DAY Cece medeiros Naproxen 500 MG oral Tablet 2022-07 08:46: 50 Yes 500mg Take 1 tablet (500 mg total) by mouth. Cece medeiros Naproxen 500 MG oral Tablet 2022-07 00:00: 00 11-05 00:00 :00 No [id number] TAKE 1 TABLET BY MOUTH IN THE MORNING AND TAKE 1 TABLET IN THE EVENING WITH MEALS Cece medeiros Ibuprofen (MOTRIN) 800 MG oral Tablet 04-06 00:00: 00 11-05 00:00 :00 No Cece medeiros Lorazepam 1 MG oral Tablet 04-06 00:00: 00 11-05 00:00 :00 No Cece medeiros HYDROcodone -Acetaminop hen (NORCO) 5-325 MG oral Tablet 04-06 00:00: 00 11-05 00:00 :00 No Take by mouth. Cece medeiros Propofol (Diprivan) 200 MG/20ML intravenous Emulsion 04-06 00:00: 00 11-05 00:00 :00 No 20 ML propofol 10 MG/ML Injection [Diprivan] Quantity: 1 Sonia Chase MD Start: 3 Cece medeiros POTASSIUM CHLORIDE ER OR 03-14 00:00: 00 11-05 00:00 :00 No 80mg Inject into the vein. Ceec medeiros Magnesium Sulfate 20 GM/500ML intravenous Solution 03-14 00:00: 00 11-05 00:00 :00 No Inject into the vein. Ceec medeiros Palonosetro n HCl 0.25 MG/2ML intravenous Solution 03-14 00:00: 00 11-05 00:00 :00 No .25mg Inject 0.25 mg into the vein. Cece medeiros sodium chloride 0.9 % intravenous Solution 03-14 00:00: 00 11-05 00:00 :00 No 1000mL Inject 1,000 mL into the vein. Cece medeiros EPINEPHrine 1 MG/10ML injection Solution Prefilled Syringe 02-13 00:00: 00 11-05 00:00 :00 No .3mg Inject 0.3 mg into the muscle. Cece medeiros Famotidine (PEPCID) 10 MG oral Tablet 02-13 00:00: 11-05 00:00 :00 No 20mg Inject 2 tablets (20 mg total) into the vein. Cece medeiros Hydrocortis one Sod Suc, PF, (SOLU-ADALGISA F) 100 MG injection Recon Soln 02-13 00:00: 00 11-05 00:00 :00 No 100mg Inject 100 mg into the vein. Cece medeiros methylPREDN ISolone Sodium Succ 2000 MG injection Recon Soln 02-13 00:00: 00 11-05 00:00 :00 No 125mg Inject 125 mg into the vein. Cece medeiros Tramadol HCl (ULTRAM) 50 MG oral Tablet 02-10 00:00: 00 11-05 00:00 :00 No 50mg Q.25D Take 1 tablet (50 mg total) by mouth every 6 hours as needed FOR PAIN. Cece medeiros Lidocaine-P rilocaine (EMLA) cream 2.5-2.5 % 02-08 00:00: 00 11-05 00:00 :00 No APPLY 1 APPLICATIO N ONCE TO INTACT SKIN OVER THE PORT SITE AND COVER WITH OCCLUSIVE Cece medeiros Olanzapine 2.5 MG oral Tablet 02-08 00:00: 00 11-05 00:00 :00 No TAKE 1 TABLET EVERY EVENING. DAYS 1-4 OF CHEMO Cece medeiros Ondansetron (ZOFRAN) 8 MG oral TABLET DISPERSIBLE 02-08 00:00: 00 11-05 00:00 :00 No Take by mouth. Cece medeiros Arnuity Ellipta 100 MCG/ACT inhalation AEROSOL POWDER, BREATH ACTIVATED 01-16 00:00: 00 11-05 00:00 :00 No Cece medeiros Chlorthalid one 50 MG oral Tablet 01-13 09:16: 38 01-13 00:00 :00 No 50mg Take 1 tablet (50 mg total) by mouth daily Cece medeiros Albuterol Sulfate 108 (90 Base) MCG/ACT inhalation AEROSOL POWDER, BREATH ACTIVATED 01-13 08:46: 03 Yes Inhale into the lungs Cece medeiros Naproxen 500 MG oral Tablet Delayed Response 01-13 08:46: 03 Yes 500mg Take 1 tablet (500 mg total) by mouth 2 times daily Cece medeiros Fluticasone Furoate 100 MCG/ACT inhalation AEROSOL POWDER, BREATH ACTIVATED 01-13 00:00: 00 Yes [id number] 1{puff} Inhale 1 puff into the lungs daily Cece medeiros Budesonide- Formoterol Fumarate (Symbicort) 80-4.5 MCG/ACT inhalation Aerosol 01-13 00:00: 00 11-05 00:00 :00 No [id number] 2{puff} Inhale 2 puffs into the lungs 2 times daily Cece medeiros Lisinopril 10 MG oral Tablet 01-09 00:00: 00 Yes [id number] TAKE 2 TABLETS BY MOUTH EVERY DAY Cece medeiros Bupropion HCL XL 150 MG OR TB24 01-09 00:00: 00 11-05 00:00 :00 No [id number] TAKE 1 TABLET BY MOUTH EVERY DAY Cece medeiros Trazodone HCl 50 MG oral Tablet 01-09 00:00: 00 11-05 00:00 :00 No [id number] TAKE 1 TABLET BY MOUTH EVERY DAY AT NIGHT Cece medeiros Albuterol HFA 108 (90 Base) MCG/ACT IN AERS 12-25 00:00: 00 Yes [id number] 2{puff} Q.25D Inhale 2 puffs into the lungs every 6 hours as needed Cece medeiros Chlorthalid one 50 MG oral Tablet 12-16 14:44: 35 12-16 00:00 :00 No 50mg Take 1 tablet (50 mg total) by mouth daily Cece medeiros Naproxen 500 MG oral Tablet 12-16 00:00: 00 11-05 00:00 :00 No [id number] 500mg Take 1 tablet (500 mg total) by mouth. Cece medeiros Chlorthalid one 50 MG oral Tablet 12-16 00:00: 00 11-05 00:00 :00 No [id number] 50mg Take 1 tablet (50 mg total) by mouth daily Cece medeiros Lisinopril 10 MG oral Tablet 12-16 00:00: 00 01-09 00:00 :00 No [id number] 20mg Take 2 tablets (20 mg total) by mouth daily Cece medeiros Bupropion HCL XL 150 MG OR TB24 12-16 00:00: 00 01-09 00:00 :00 No [id number] 150mg Take 1 tablet (150 mg total) by mouth daily Cece medeiros Trazodone HCl 50 MG oral Tablet 12-16 00:00: 00 01-09 00:00 :00 No [id number] 50mg Take 1 tablet (50 mg total) by mouth nightly Cece medeiros Propranolol HCl 10 MG oral Tablet 12-13 00:00: 00 12-16 00:00 :00 No [id number] TAKE 1 TABLET BY MOUTH 3 TIMES DAILY Cece medeiros Acetaminoph en-Codeine #3 300-30 MG oral Tablet 12-12 00:00: 00 Yes [id number] 1{tbl} Q.25D Take 1 tablet by mouth every 6 hours as needed FOR PAIN Cece medeiros Albuterol HFA 108 (90 Base) MCG/ACT IN AERS 12-09 00:00: 00 Yes [id number] 2{puff} Q.25D Inhale 2 puffs into the lungs every 6 hours as needed Cece medeiros Ibuprofen (MOTRIN) 800 MG oral Tablet 11-23 10:30: 14 11-23 00:00 :00 No 800mg Q.[id number] 3D Take 1 tablet (800 mg total) by mouth every 8 hours as needed Cece medeiros Chlorthalid one 50 MG oral Tablet 11-23 10:04: 20 Yes 50mg Take 1 tablet (50 mg total) by mouth daily Cece medeiros Albuterol HFA 108 (90 Base) MCG/ACT IN [facility] 11-22 00:00: 00 Yes [id number] 2{puff} Q.25D Inhale 2 puffs into the lungs every 6 hours as needed Cece medeiros Ibuprofen (MOTRIN) 800 MG oral Tablet 11-18 13:35: 14 Yes 800mg Q.99000025 [id number] 3D Take 1 tablet (800 mg total) by mouth every 8 hours as needed Cece medeiros Chlorthalid one 50 MG oral Tablet 11-18 13:35: 14 Yes 50mg Take 1 tablet (50 mg total) by mouth daily Cece medeiros Albuterol HFA 108 (90 Base) MCG/ACT IN [facility] 11-18 13:35: 14 Yes 2{puff} Q.25D Inhale 2 puffs into the lungs every 6 hours as needed Cece medeiros Propranolol HCl 10 MG oral Tablet 11-18 00:00: 00 Yes [id number] 10mg Take 1 tablet (10 mg total) by mouth 3 times daily Cece medeiros Naproxen 500 MG oral Tablet 11-18 00:00: 00 Yes [id number] 500mg Take 1 tablet (500 mg total) by mouth in the morning and 1 tablet (500 mg total) in the evening. Take with meals. Cece Seybold - Externa l Vital Signs Vital Name Observation Time Observation Value Comments S ource Systolic blood pressure 2024-06-13 20:22:00 142 mm[Hg] Cece Seybold - External Diastolic blood pressure 2024-06-13 20:22:00 74 mm[Hg] Cece Seybold - External Heart rate 2024-06-13 20:22:00 95 /min Cece Seybold - External Body temperature 2024-06-13 20:22:00 37 Christina Cece Seybold - External Respiratory rate 2024-06-13 20:22:00 14 /min Cece Seybold - External Body height 2024-06-13 20:22:00 154.9 cm Cece Seybold - External Body weight 2024-06-13 20:22:00 98.884 kg Cece Seybold - External BMI 2024-06-13 20:22:00 41.19 kg/m2 Cece Seybold - External Systolic blood pressure 2023-12-11 18:46:00 126 mm[Hg] Cece Seybold - External Diastolic blood pressure 2023-12-11 18:46:00 74 mm[Hg] Cece Seybold - External Heart rate 2023-12-11 18:46:00 92 /min Cece Seybold - External Body temperature 2023-12-11 18:46:00 35.94 Christina Cece Seybold - External Respiratory rate 2023-12-11 18:46:00 15 /min Cece Seybold - External Body height 2023-12-11 18:46:00 154.9 cm Cece Seybold - External Body weight 2023-12-11 18:46:00 92.987 kg Cece Seybold - External BMI 2023-12-11 18:46:00 38.73 kg/m2 Cece Seybold - External Systolic blood pressure 2023-11-06 18:42:00 160 mm[Hg] Cece Seybold - External Diastolic blood pressure 2023-11-06 18:42:00 90 mm[Hg] Cece Seybold - External Heart rate 2023-11-06 18:24:00 84 /min Cece Seybold - External Body temperature 2023-11-06 18:24:00 35.78 Christina Cece Seybold - External Respiratory rate 2023-11-06 18:24:00 15 /min Cece Seybold - External Body height 2023-11-06 18:24:00 154.9 cm Cece Seybold - External Body weight 2023-11-06 18:24:00 92.987 kg Cece Seybold - External BMI 2023-11-06 18:24:00 38.73 kg/m2 Cece Seybold - External Systolic blood pressure 2023-01-13 13:42:00 108 mm[Hg] Cece Seybold - External Diastolic blood pressure 2023-01-13 13:42:00 64 mm[Hg] Cece Seybold - External Heart rate 2023-01-13 13:42:00 76 /min Cece Seybold - External Body temperature 2023-01-13 13:42:00 36.22 Christina Cece Seybold - External Respiratory rate 2023-01-13 13:42:00 16 /min Cece Seybold - External Body height 2023-01-13 13:42:00 154.9 cm Cece Seybold - External Body weight 2023-01-13 13:42:00 102.967 kg Cece Seybold - External BMI 2023-01-13 13:42:00 42.89 kg/m2 Cece Seybold - External Oxygen saturation in Arterial blood by Pulse oximetry 2023-01-13 13:42:00 97 /min Cece Seybold - External Systolic blood pressure 2022-12-16 19:25:00 168 mm[Hg] Cece Seybold - External Diastolic blood pressure 2022-12-16 19:25:00 100 mm[Hg] Cece Seybold - External Heart rate 2022-12-16 19:25:00 88 /min Cece Seybold - External Body temperature 2022-12-16 19:25:00 36.39 Christina Cece Seybold - External Respiratory rate 2022-12-16 19:25:00 14 /min Cece Seybold - External Body height 2022-12-16 19:25:00 157.5 cm Cece Seybold - External Body weight 2022-12-16 19:25:00 107.502 kg Cece Seybold - External BMI 2022-12-16 19:25:00 43.35 kg/m2 Cece Seybold - External Systolic blood pressure 2022-11-23 22:21:00 158 mm[Hg] Post Procedure Cece Seybold - External Diastolic blood pressure 2022-11-23 22:21:00 94 mm[Hg] Post Procedure Cece Seybold - External Heart rate 2022-11-23 22:21:00 73 /min Post procedure Cece Seybold - External Body temperature 2022-11-23 15:02:00 36.78 Christina Cece Seybold - External Respiratory rate 2022-11-23 15:02:00 18 /min Cece Seybold - External Body height 2022-11-23 15:02:00 157.5 cm Cece Seybold - External Body weight 2022-11-23 15:02:00 105.688 kg Cece Seybold - External BMI 2022-11-23 15:02:00 42.62 kg/m2 Cece Seybold - External Systolic blood pressure 2022-11-18 18:33:00 126 mm[Hg] Cece Seybold - External Diastolic blood pressure 2022-11-18 18:33:00 68 mm[Hg] Cece Seybold - External Heart rate 2022-11-18 18:33:00 87 /min Cece Seybold - External Body temperature 2022-11-18 18:33:00 36.44 Christina Cece Seybold - External Respiratory rate 2022-11-18 18:33:00 20 /min Cece Seybold - External Body height 2022-11-18 18:33:00 157.5 cm Cece Seybold - External Body weight 2022-11-18 18:33:00 108.41 kg Cece Seybold - External BMI 2022-11-18 18:33:00 43.71 kg/m2 Cece Seybold - External Oxygen saturation in Arterial blood by Pulse oximetry 2022-11-18 18:33:00 97 /min Cece Seybold - External Encounters Start Date/Time End Date/Time Encounter Type Admission Type Attending [facility] Care Department Encounter ID Source 2022-10-31 11:49:18 Outpatient SYSTEM, PROVIDER JASEN AGGARWAL [id number] MD Kenn archer 2024-08-01 00:00:00 2024-08-01 00:00:00 Outpatient ARMAND WATKINS CECE ANDREW [id number] Cece Seybpaola 2024-07-10 00:00:00 2024-07-10 00:00:00 Outpatient ARMAND WATKINS CECE ANDREW [id number] Cece Seybpaola 2024-06-18 00:00:00 2024-06-18 00:00:00 Outpatient MD CECE JONES [id number] Cece Seybold 2024-06-14 16:15:00 2024-06-14 16:15:00 Outpatient LAB90 CECE ANDREW [id number] Cece Seybold 2024-06-13 14:30:00 2024-06-13 14:30:00 Outpatient MONICA PITTS [id number] Cece Seybold 2024-06-04 00:00:00 2024-06-04 00:00:00 Outpatient ARMAND WATKINS CECE ANDREW [id number] Cece Seybold 2024-05-23 11:00:00 2024-05-23 11:00:00 Outpatient CECE ANDREW [id number] Cece Seybold 2024-05-23 10:00:00 2024-05-23 10:00:00 Outpatient CECE ANDREW [id number] Cece Seybold 2024-05-07 00:00:00 2024-05-07 00:00:00 Outpatient ARMAND WATKINS CECE ANDREW [id number] Cece Seybold 2024-05-07 00:00:00 2024-05-07 00:00:00 Outpatient MONICA PITTS [id number] Cece Seybold 2024-05-01 00:00:00 2024-05-01 00:00:00 Outpatient CECE ANDREW [id number] Cece Seybold 2024-04-30 00:00:00 2024-04-30 00:00:00 Outpatient LIZAPILO NARANJO CEEC ANDREW [id number] Cece Seybold 2024-04-23 00:00:00 2024-04-23 00:00:00 Outpatient MONICA PITTS CECE ANDREW [id number] Cece Seybold 2024-04-19 00:00:00 2024-04-19 00:00:00 Outpatient CECE ANDREW [id number] Cece Seybold 2024-04-01 00:00:00 2024-04-01 00:00:00 Outpatient ARMAND WATKINS [id number] Cece Seybold 2024-04-01 00:00:00 2024-04-01 00:00:00 Outpatient GEORGETTELUCY CALLOWAY CECE ANDREW [id number] Cece Seybold 2024-03-29 12:45:00 2024-03-29 12:45:00 Outpatient ORAL NICK ANDREW [id number] Cece Seybold 2024-03-29 00:00:00 2024-03-29 00:00:00 Outpatient IRLANDA LE [id number] Cece Seybold 2024-03-21 00:00:00 2024-03-21 00:00:00 Outpatient GLENNMala MONICA ANDREW [id number] Cece Seybold 2024-03-04 15:40:00 2024-03-04 15:40:00 Outpatient CECE ANDREW [id number] Cece Seybold 2024-03-01 00:00:00 2024-03-01 00:00:00 Outpatient MD CECE JONES [id number] Cece Seybold 2024-02-23 16:00:00 2024-02-23 16:00:00 Outpatient NTJosué ANDREW [id number] Cece Seybold 2024-02-23 00:00:00 2024-02-23 00:00:00 Outpatient GISSELLE MONICA ANDREW [id number] Cece Seybold 2024-02-15 00:00:00 2024-02-15 00:00:00 Outpatient IRLANDA LE [id number] Cece Seybold 2024-01-24 00:00:00 2024-01-24 00:00:00 Outpatient ARMAND WATKINS [id number] Cece Seybold 2024-01-17 00:00:00 2024-01-17 00:00:00 Outpatient CECE ANDREW [id number] Cece ybpaola 2024-01-04 00:00:00 2024-01-04 00:00:00 Outpatient MONICA PITTS CECE ANDREW [id number] Cece ybpaola 2023-12-18 15:30:00 2023-12-18 15:30:00 Outpatient NICK MIXON CECE ANDREW [id number] Cece Seybpaola 2023-12-11 14:00:00 2023-12-11 14:00:00 Outpatient MONICA PITTS CECE ANDREW [id number] Cece Seybpaola 2023-12-11 00:00:00 2023-12-11 00:00:00 [facility] [id number] [facility] 2023-11-28 00:00:00 2023-11-28 00:00:00 Outpatient ARMAND WATKINS [id number] [facility] 2023-11-07 10:00:00 2023-11-07 10:00:00 Outpatient RAFAL VIDAL [id number] [facility] 2023-11-06 13:45:00 2023-11-06 13:45:00 Outpatient RAFAL VIDAL [id number] [facility] 2023-11-02 00:00:00 2023-11-02 00:00:00 Outpatient ARMAND WATKINS [id number] [facility] 2023-10-12 00:00:00 2023-10-12 00:00:00 Outpatient CECE ANDREW [id number] Cece Seybold 2023-10-09 12:45:00 2023-10-09 12:45:00 Outpatient VIKA ANDREW [id number] Cece Seybold 2023-10-09 00:00:00 2023-10-09 00:00:00 Outpatient IRLANDA LE [id number] Cece Seybold 2023-09-21 00:00:00 2023-09-21 00:00:00 Outpatient ARMAND WATKINS CECE ANDREW [id number] Cece Seybold 2023-08-04 10:00:00 2023-08-04 10:00:00 Outpatient CECE ANDREW [id number] Cece Seybold 2023-08-04 09:00:00 2023-08-04 09:00:00 Outpatient CECE ANDREW [id number] Cece Seybold 2023-07-28 10:00:00 2023-07-28 10:00:00 Outpatient CECE ANDREW [id number] Cece Seybold 2023-07-28 09:00:00 2023-07-28 09:00:00 Outpatient CECE ANDREW [id number] Cece Seybold 2023-07-07 08:45:00 2023-07-07 08:45:00 Outpatient ARMAND WATKINS CECE ANDREW [id number] [facility] 2023-05-08 00:00:00 2023-05-08 00:00:00 Outpatient IRLANDA LE [id number] [facility] 2023-05-05 00:00:00 2023-05-05 00:00:00 Outpatient CECE ANDREW [id number] [facility] 2023-05-04 00:00:00 2023-05-04 00:00:00 Outpatient ERI LEMOS GAEL CECE ANDREW [id number] Cece Seybold 2023-05-03 00:00:00 2023-05-03 00:00:00 Outpatient MONICA PITTS [id number] Cece Seybold 2023-04-30 00:00:00 2023-04-30 00:00:00 Outpatient MONICA PITTS [id number] Cece Seybold 2023-04-14 09:00:00 2023-04-14 09:00:00 Outpatient MONICA PITTS [id number] Cece Seybold 2023-04-07 00:00:00 2023-04-07 00:00:00 Outpatient MONICA PITTS [id number] Cece Seybold 2023-04-06 06:47:00 2023-04-06 06:47:00 Outpatient Lola Miner [facility] DAYS [id number] 42 [facility] 2023-04-04 16:58:00 2023-04-04 16:58:00 Outpatient Kel Hassan [facility] RMRI [id number] [facility] 2023-04-04 00:00:00 2023-04-04 00:00:00 Outpatient REYIRLANDA [id number] [facility] 2023-03-09 00:00:00 2023-03-09 00:00:00 Outpatient MONICA PITTS [id number] [facility] 2023-03-02 00:00:00 2023-03-02 00:00:00 Outpatient MONICA PITTS [id number] Cece [facility] 2023-02-10 08:04:00 2023-02-10 08:04:00 Outpatient Vianey Henley [facility]ACL ADMI [id number] [facility] 2023-02-06 13:40:00 2023-02-06 13:40:00 Outpatient LAB90 CECE ANDREW [id number] [facility] 2023-02-04 00:00:00 2023-02-04 00:00:00 Outpatient MONICA PITTS [id number] [facility] 2023-02-02 00:00:00 2023-02-02 00:00:00 Outpatient CECE ANDREW [id number] [facility] 2023-02-02 00:00:00 2023-02-02 00:00:00 Outpatient MONICA PITTS [id number] [facility] 2023-02-01 00:00:00 2023-02-01 00:00:00 Outpatient MONICA PITTS [id number] [facility] 2023-01-26 00:00:00 2023-01-26 00:00:00 Outpatient CECE ANDREW [id number] [facility] 2023-01-26 00:00:00 2023-01-26 00:00:00 Outpatient CECE ANDREW [id number] Cece Seybpa[facility] 2023-01-20 12:00:00 2023-01-20 12:00:00 Outpatient CECE ANDREW [id number] Cece Seybold 2023-01-20 11:00:00 2023-01-20 11:00:00 Outpatient CECE ANDREW [id number] Cece ybold 2023-01-20 00:00:00 2023-01-20 00:00:00 Outpatient HIPOLITOSUZY LEMOSGAEL CECE ANDREW [id number] [facility]ce Donovany[facility]pa[facility] 2023-01-19 12:00:00 2023-01-19 12:00:00 Outpatient CECE ANDREW [id number] Cece ybold 2023-01-19 11:00:00 2023-01-19 11:00:00 Outpatient CECE ANDREW [id number] Cece ybold 2023-01-19 00:00:00 2023-01-19 00:00:00 Outpatient IRLANDA LE [id number] Cece Seybold 2023-01-19 00:00:00 2023-01-19 00:00:00 Outpatient CECE ANDREW [id number] [facility] 2023-01-16 00:00:00 2023-01-16 00:00:00 Outpatient [facility] [id number] Cece Seybold 2023-01-16 00:00:00 2023-01-16 00:00:00 Outpatient [facility] [id number] Cece Seybold 2023-01-13 09:45:00 2023-01-13 09:45:00 Outpatient LAB90 CECE ANDREW [id number] Cece Seybold 2023-01-13 09:00:00 2023-01-13 09:00:00 Outpatient [facility] [id number] Cece Seybold 2023-01-13 00:00:00 2023-01-13 00:00:00 Outpatient IRLANDA LE [id number] Cece Seybold 2023-01-13 00:00:00 2023-01-13 00:00:00 Outpatient IRLANDA LE CECE ANDREW [id number] [facility] 2023-01-07 00:00:00 2023-01-07 00:00:00 Outpatient [facility] CECE ANDREW [id number] Cece Seybold 2023-01-07 00:00:00 2023-01-07 00:00:00 Outpatient GISSELLE MONICA ANDREW [id number] [facility] 2023-01-06 00:00:00 2023-01-06 00:00:00 Outpatient CECE ANDREW [id number] Cece Seybold 2023-01-06 00:00:00 2023-01-06 00:00:00 [facility] [id number] [facility] 00:00:00 2023-01-05 00:00:00 Outpatient HIPOLITOSUZY CANELOGAEL [facility] [id number] [facility]23-01-05 00:00:00 2023-01-05 00:00:00 Outpatient HIPOLITOSUZY CANELOGAEL CECE [facility] [id number] [facility] 2023-01-04 00:00:00 2023-01-04 00:00:00 Outpatient MONICA PITTS CECE ANDREW [id number] [facility] 2022-12-30 14:00:00 2022-12-30 14:00:00 Outpatient GLENNMala MONICA ANDREW [id number] [facility] 2022-12-28 00:00:00 2022-12-28 00:00:00 Outpatient CECE ANDREW [id number] Cece Seybold 2022-12-26 00:00:00 2022-12-26 00:00:00 Outpatient LOLA SCOTT [id number] Cece Seybold 2022-12-26 00:00:00 2022-12-26 00:00:00 Outpatient LOLA SCOTT [id number] Cece Seybold 2022-12-16 14:30:00 2022-12-16 14:30:00 Outpatient GISSELLE MONICA ANDREW [id number] Cece farzadpaola 2022-12-15 00:00:00 2022-12-15 00:00:00 Outpatient GISSELLE MONICA ANDREW [id number] Cece farzadpaola 2022-12-10 00:00:00 2022-12-10 00:00:00 Outpatient GLENNMala MONICA ANDREW [id number] Cece franck 2022-12-09 00:00:00 2022-12-09 00:00:00 Outpatient GISSELLE MONICA ANDREW [id number] Cece [facility] 2022-12-06 00:00:00 2022-12-06 00:00:00 Outpatient MD CECE JONES [id number] Cece [facility] 2022-12-01 00:00:00 2022-12-01 00:00:00 Outpatient CECE ANDREW [id number] Cece farzadpaola 2022-11-23 10:15:00 2022-11-23 10:15:00 Outpatient [facility] CANELOGAEL CECE ANDREW [id number] Cece [facility] 2022-11-23 10:15:00 2022-11-23 10:15:00 Outpatient [facility] CANELO, GAEL CECE ANDREW [id number] Cece [facility] 2022-11-22 00:00:00 2022-11-22 00:00:00 Outpatient GLENNMala MONICA ANDREW [id number] Cece franck 2022-11-21 00:00:00 2022-11-21 00:00:00 Outpatient GLENNMala MONICA ANDREW [id number] Cece franck 2022-11-21 00:00:00 2022-11-21 00:00:00 Outpatient GISSELLE MONICA ANDREW [id number] Cece Sefranck 2022-11-18 14:00:00 2022-11-18 14:00:00 Outpatient GISSELLE MONICA ANDREW [id number] Cece Sefranck 2022-10-25 14:22:19 2022-10-25 14:22:19 Outpatient SFA SFA [id number] Tenzin Santo Results Test Description Test Time Test Comments Results Resul t Comments Source - MRI PELVIS W/O CON 2023-04-05 10:50:00 [facility] 1965 Sex: F FAX: Kel Brennan [phone] [place]: St: [facility] FAX: Lola Marcial [phone] Name: RENE PAN [facility] [place] [place] : 1965 Age/S: 57/F [address] [place] [address] Unit #: [id number] Loc: [place] [address] Phys: Kel Brennan MD Acct: [id number] Dis Date: Status: MATTHEW CLI PHONE #: [phone] Exam Date: 04/04/2023 1747 FAX #: [phone] Reason: CERVICAL CANCER EXAMS: CPT CODE: [id number] MRI PELVIS W/O CON 26478 EXAM: - MRI PELVIS W/O CON INDICATION: CERVICAL CANCERLocation: T 18. TECHNIQUE: MRI pelvis without intravenous contrast as per the departmental protocol. FINDINGS: The uterus appears to be atrophic. Within the endometrium and in the cervix, mildly high T2 signal masslike enlargement identified measuring approximately 5.1 x 2.6 x 3.2 cm in size. This demonstrates high T1 signal. There is no extension into the parametrium seen. There is a small low T2 signal structure noted arising from the anterior aspect of the fundus measuring 8 mm in size, suggesting a subserosal fibroid measuring 8 mm in size. In the left ovary, there is a septated T2 hyperintense structure noted measuring 2.6 x 1.9 cm in size. No right ovarian mass or cyst seen. There are no enlarged lymph nodes identified. No hydronephrosis or hydroureter seen. No dilated bowel loops identified. No acute or destructive osseous process seen. IMPRESSION: Masslike enlargement within the endometrium and the cervix measuring approximately 5.1 x 2.6 x 3.2 cm in size. Lack of intravenous contrast precludes adequate assessment. Differential considerations include mass and/or hemorrhagic/proteinac eous fluid. If further imaging evaluation warranted, correlation with postcontrast imaging (to include subtraction images) is suggested. No extension into the parametrium seen. No enlarged lymph nodes noted. Small low T2 signal structure noted arising from the anterior aspect of the fundus measuring 8 mm in size, suggesting a subserosal fibroid measuring 8 mm in size. Left ovarian septated T2 hyperintense structure measuring 2.6 x 1.9 cm in size, either a cyst or cystic neoplasm. The patient is under personal injury specialist care. Please refer to the findings section for additional details. at 1050 Reported and signed by: Osorio Schulz M.D. PAGE 1 Signed Report (CONTINUED) FAX: Kel Brennan [phone] [place]: St: [facility] FAX: Lola Marcial [phone] Name: RENE PAN [facility] [place] [place] : 1965 Age/S: 57/F [address] [place] [address] Unit #: [id number] Loc: [place] [address] Phys: Kel Brennan MD Acct: [id number] Dis Date: Status: DEP CLI PHONE #: [phone] Exam Date: 04/04/2023 174 FAX #: [phone] Reason: CERVICAL CANCER EXAMS: CPT CODE: [id number] MRI PELVIS W/O CON 99465 (Continued) CC: Kel Brennan MD; Lola Scott MD Technologist: Hyun Zee RT(R)(MR) Trnscrd Date/Time/By: 04/05/2023 (1050) : By: [email or web address] Orig Print D/T: S: 04/05/2023 (8305) PAGE 2 Signed Report BASIC METABOLIC [id number] 16:08:00* Test Item Value Reference Range Interpretation Comme nts SODIUM (test code = NA) 140 mEq/L 134-147 N POTASSIUM (test code = K) 3.7 mEq/L 3.4-5.0 N CHLORIDE (test code = CL) 109 mEq/L 100-108 H CARBON DIOXIDE (test code = CO2) 25 mEq/l 21-33 N ANION GAP (test code = GAP) 10 0-20 N GLUCOSE (test code = GLU) 205 mg/dL 77-141 H NOTE: NEW NORMAL RANGE BLOOD UREA NITROGEN (test code = BUN) 18 mg/dL 7-25 N NOTE: NEW NORM AL RANGE GLOMERULAR FILTRATION RATE (test code = GFR) 66.5 90-95 L The Glomerular Filtration Rate is a calculated parameterbased on serum Creatinine, patient age and sex. GFR valuesless than 60 mL/min/1.73 square meters are indicative ofChronic Kidney Disease. Values less than 15 mL/min/1.73square meters indicate Kidney failure. The calculation forGFR is based on the CKD-EPI (2020) calculation. This formulais race indifferent and is the recommended formula for GFRby the National Kidney Foundation for Adults.The GFR will not calculate if the sex is unknown or if thepatient's age is <18 years. CREATININE (test code = CREAT) 1.0 mg/dL 0.6-1.3 N CALCIUM (test code = CA) 8.4 mg/dL 8.0-10.5 N HCG SERUM [id number] 16:04:00* Test Item Value Reference Range Interpretation Comme nts HCG SERUM QUAL (test code = HCGQL) SERUM NEGATIVE NEGATIVE - XR CHEST 1 [id number] 00:00:00 [facility] : 1965 Sex: F FAX: Vianey Salinas MD [phone] [place]: St: DEP Name: RENE PAN [facility] [place] [place] : 1965 Age/S: 57/F [address] [place] [address] Unit #: [id number] Loc: [place] [address] Phys: Vianey Louie MD Acct: [id number] Dis Date: Status: DEP REF PHONE #: [phone] Exam Date: 02/10/2023 1022 FAX #: [phone] Reason: [facility] EXAMS: CPT CODE: [id number] XR CHEST 1 V 58623 PROCEDURE INFORMATION: Exam: XR Chest Exam date and time: 02/10/2023 10:00 AM Age: 57 years old Clinical indication: Pre-operative exam; Respiratory screening exam; Additional info: [facility] TECHNIQUE: Imaging protocol: Radiologic exam ofthe chest. Views: 1 view. COMPARISON: No relevant prior studies available. FINDINGS: Tubes, catheters and devices: Left chest port catheter is demonstrated. Catheter tip overlies the SVC region. Lungs: The lungs appear clear. Pleural spaces: No pleural effusion. No pneumothorax. Heart/Mediastinum: Mediastinum and art appear unremarkable. Bones/joints: No acute bony abnormality identified. Soft ti ssues: This study is limited by patient's body habitus. IMPRESSION: No evidence for acute abnormality identified in the chest. at 0858 Reported and signed by: Lorenzo Quintero M.D. CC: Vianey Louie MD Technologist:RT Marilu(Justice) Trnscrd Date/Time/By: 02/11/2023 (0858) : By: [email or web address] Orig Print D/T: S: 02/11/2023 (0833) PAGE 1 Signed ReportPAP TEST, THINPREP, [id number] 15:16:38* Test Item Value Reference Range Interpretation Comments SOURCE: (test code = 8001) Cervical/Endo cervical SLIDES: (test code = 8011) 2 LMP: (test code = 8021) AUGUST SPECIMEN ADEQUACY: (test code = 89731) (NOTE) Satisfactory for evaluation. Endocervical cells/transformation zone component not identified. INTERPRETATION: (test code = 04308) SQUAMOUS CARCINOMA; SEE BELOW A ----- EPITHELIAL CELL ABNORMALITY Squamous cell carcinoma ---- OTHER COMMENTS: (test code = 8081) (NOTE) Glacial aceti c acid added due to blood/mucus in specimen.Your patient has an abnormal Pap test which requires correlationwith any available histologic data you may have in your records(current or future follow-up cervical biopsies, endocervicalcurettage specimens, or cone biopsies). When this information isavailable, please forward a copy to [facility]. Thank you. HOME ADMINISTRATOR: (test code = 8101) SABA Gibson( CP) IAC PATHOLOGIST INTERPRETATION BY: (test code = 8122) Alek Donnelly LOCATION: (test code = 18381) (NOTE) Specimens proces sed and interpreted at [facility], [address] [place] [address], , CLIA: [id number] CPT: (test code = 8140) (NOTE) 33808, 19020 UNL ESS OTHERWISE INDICATED, COMPUTER AIDED AND HOME ADMINISTRATOR SCREENING PERFORMED. The Pap test is a screening test with an inherent, but low probability of error. Your patient should be reminded to consult you immediately if she experiences any suspicious signs or symptoms, regardless of her Pap test result. An alternate report format containing images or consolidated prior Pap history is available as applicable. CT/NG, NAAT, [id number] 16:27:05* Test Item Value Reference Range Interpretation Comme nts CHLAMYDIA, NAAT, THINPREP (test code = 26924) NEGATIVE NEGATIVE A negative resul t does not exclude low level infection, specimensampling error, or collection error. Testing is performed with the Tom Alexander 6800/8800 systems usingreal-time Polymerase Chain Reaction (PCR) method. GONORRHEA, NAAT, THINPREP (test code = 31568) NEGATIVE NEGATIVE A negative resul t does not exclude low level infection, specimensampling error, or collection error. Testing is performed with the Tom Alexander 6800/8800 systems usingreal-time Polymerase Chain Reaction (PCR) method. HPV HIGH RISK WITH GENOTYPE, [id number] 15:35:13* Test Item Value Reference Range Interpretation Comme nts HPV HIGH RISK INTERP (test code = 58679) POSITIVE NEGATIVE A HPV 16 (test code = 42448) POSITIVE A HPV 18 (test code = 81343) NEGATIVE HPV, HR, OTHER GENOTYPES (test code = 99277) NEGATIVE Testing methodol ogy is real-time PCR utilizing hydrolysis probes with the Tom Alexander 4800 system. The test individually detects genotypes 16 and 18, as well as the other 12 high risk types (31,33,35,39,45,51,52,56 ,58,59,66,68). The expected result is negative. A negative result does not rule out the presence of HPV not included in the genotype set, a low level of infection or specimen sampling error. [facility] has important pathology staff changes effective 09/07/2022. New pathology staff will provide uninterrupted, excellent patient care and clinical consultation. See URL: [email or web address]. UNLESS OTHERWISE INDICATED, ALL TESTING PERFORMED AT [facility] [address] [place] [address] [employer] IN[employer]CTOR: AUSTIN BELTRAN M.D. CLIA NUMBER [id number] [facility] [place]. [id number] HIV 1/2 4TH GEN, RFLX [id number] 05:05:09* Test Item Value Reference Range Interpretation Comme nts HIV 1/2 4TH GEN, RFLX CONF ( test code = 3514) NON-REACTIVE NON-REACTIVE HEPATITIS PANEL, [id number] 05:05:09* Test Item Value Reference Range Interpretation Comme nts HEPATITIS A IgM (test code = 67740) NON-REACTIVE NON-REACTIVE HEPATITIS B CORE IgM (test code = 4644) NON-REACTIVE NON-REACTIVE HEPATITIS B SURF AG (test code = 2739) NON-REACTIVE NON-REACTIVE HEPATITIS C ANTIBODY (test code = 4675) NON-REACTIVE NON-REACTIVE INTERPRETATION HEPATITIS A: (test code = 2552) (NOTE) Hepatitis A sero logy shows no evidence of acute hepatitis A. INTERPRETATION HEPATITIS B: (test code = 05658) (NOTE) Hepatitis B sero logy shows no evidence of acute hepatitis B andno indication of exposure to hepatitis B virus in the previous santi eight months. INTERPRETATION HEPATITIS C: (test code = 93602) (NOTE) Hepatitis C sero logy shows no evidence of exposure to hepatitisC virus at this time. It can take up to 12 months after exposure tothe hepatitis C virus for antibodies to become detectable in the blood in certain patients. [facility] has important pathology staff changes effective 09/07/2022. New pathology staff will provide uninterrupted, excellent patient care and clinical consultation. See URL: [email or web address]. UNLESS OTHERWISE INDICATED, ALL TESTING PERFORMED AT [facility] [address] [place] [address] [employer]: AUSTIN BELTRAN M.D. IA NUMBER [id number] [facility] [place]. [id number] RPR REFLEX TO T. PALLIDUM - [id number] 04:33:20* Test Item Value Reference Range Interpretation Comme nts RPR (test code = 84247) NON-REACTIVE NON-REACTIVE RPR TITER (test code = 3500) NOT INDIC. TITER NOT INDIC. CULTURE, [id number] 11:36:32SPECIMEN NUMBER: [id number] CULTURE, URINE SPECIMEN NUMBER: [id number] SPECIMEN COMMENT: URINE SOURCE: URINE REPORT STATUS: FINAL FINAL REPORT: 09/01/2022 50-100,000 CFU/ML MIXED MICROBIAL POPULATION P RESENT, NO PREDOMINATING ORGANISMS;PROBABLE CONTAMINANTS.CT/NG, NAAT, URINE 2022-08-31 19:34:15* Test Item Value Reference Range Interpretation Comme nts GONORRHEA, NAAT (test code = 12697) NEGATIVE NEGATIVE Testing is perfo rmed with Tom ALEXANDER 6800/8800 systems usingreal-time polymerase chain reaction (PCR) method. A negative result does not exclude low level infection, specimensampling error, or collection error. CHLAMYDIA, NAAT (test code = 17173) NEGATIVE NEGATIVE Testing is perfo rmed with Tom ALEXANDER 6800/8800 systems usingreal-time polymerase chain reaction (PCR) method. A negative result does not exclude low level infection, specimensampling error, or collection error. [id number] 05:00:49* Test Item Value Reference Range Interpretation Comme nts TESTOSTERONE (test code = 2830) 17 NG/DL See_Comment NOTE: TOTAL TESTOSTERONE ASSAY SENSITIVITY IS 12 NG/DL. TO DETERMINE NORMAL VS. SUBNORMAL TESTOSTERONE IN CHILDREN AND WOMEN, CONSIDER TESTING WITH ULTRASENSITIVE TESTOSTERONE. [Automated message] The system which generated this result transmitted reference range: <=55. The reference range was not used to interpret this result as normal/abnormal. FSH + LH [id number] 05:00:07* Test Item Value Reference Range Interpretation Comme [facility] FOLLICLE STIM HORMONE (test code = 2700) 47.6 IU/L SEE BELOW EXPEC OZZIE VALUES FOR FSH FOR FEMALES >17 YEARS FOLLICULAR 3.5-12.5 IU/L MID-CYCLE PEAK 4.7-21.5 IU/L LUTEAL PHASE 1.7-7.7 IU/L POSTMENOPAUSAL 25.8-134.8 IU/L LUTEINIZING HORMONE (test code = 2776) 36.6 IU/L SEE BELOW EXPEC OZZIE VALUES FOR LH FOR FEMALES >17 YEARS MALES FEMALES >=18 YEARS 1.8-8.6 IU/L FOLLICULAR 2.4-12.6 IU/L MID-CYCLE PEAK 14.0-95.6 IU/L LUTEAL PHASE 1.0-11.4 IU/L POSTMENOPAUSAL 7.7-58.5 IU/L [id number] 05:00:07* Test Item Value Reference Range Interpretation Comme [facility] PROLACTIN (test code = 2800) 4.4 NG/ML 5.0-37.0 L NOTE: Methodolog y is Tom Alexander Electrochemiluminescence Immunoassay (ECLIA). Values obtained with different assays/manufacturers cannot be used interchangeably. Results should not be used as sole basis to establish the presence or absence of malignancy. [id number] 05:00:07* Test Item Value Reference Range Interpretation Comme [facility] ESTRADIOL (test code = 2505) 19.9 PG/ML SEE BELOW Note: Values in the range of 17-25 PG/ML may demonstrate increased imprecision. Clinical correlation is recommended. EXPECTED VALUES FOR ESTRADIOL FOR FEMALES >=18 YEARS FOLLICULAR . . . . . . . . . . . . . PG/ML 12.4-233.0 OVULATION. . . . . . . . . . . . . . PG/ML 41.0-398.0 LUTEAL PHASE . . . . . . . . . . . . PG/ML 22.3-341.0 POSTMENOPAUSAL SUPPLEMENTED/NON-SUPP . PG/ML <138.0/<20.0 NOTE: TO DETERMINE NORMAL VS. SUBNORMAL ESTRADIOL IN POSTMENOPAUSAL FEMALES, CONSIDER ULTRASENSITIVE ESTRADIOL (CPL ORDER CODE 5678). METHODOLOGY IS TOM ALEXANDER ELECTROCHEMILUMINESCENT IMMUNOASSAY WITH A LIMIT OF DETECTION OF 17 PG/ML. RPR REFLEX TO T. PALLIDUM - [id number] 03:20:11* Test Item Value Reference Range Interpretation Comme nts RPR (test code = 26956) NON-REACTIVE NON-REACTIVE RPR TITER (test code = 3500) NOT INDIC. TITER NOT INDIC. CBC W/AUTO DIFF WITH [id number] 02:03:19* Test Item Value Reference Range Interpretation Comme nts WBC (test code = 1001) 6.7 K/UL 3.5-11.0 RBC (test code = 1002) 5.20 M/UL 3.80-5.40 HEMOGLOBIN (test code = 1003) 15.4 G/DL 11.5-15.5 HEMATOCRIT (test code = 1004) 45.7 % 34.0-45.0 H MCV (test code = 1005) 87.9 fL 80.0-99.0 MCH (test code = 1006) 29.6 PG 25.0-33.0 MCHC (test code = 1007) 33.7 G/DL 31.0-36.0 RDW (test code = 1038) 13.7 % 11.5-15.0 NEUTROPHILS (test code = 1008) 68.7 % LYMPHOCYTES (test code = 1010) 20.4 % MONOCYTES (test code = 1011) 6.6 % EOSINOPHILS (test code = 1012) 3.3 % BASOPHILS (test code = 1013) 0.7 % IMMATURE GRANULOCYTES (test code = 1036) 0.3 % NUCLEATED RBCS (test code = 1065) 0.0 /100 WBC'S See_Comment [Automated message] The system which generated this result transmitted reference range: 0.0. The reference range was not used to interpret this result as normal/abnormal. PLATELET COUNT (test code = 1015) 308 K/UL 130-400 ABSOLUTE NEUTROPHILS (test code = 1066) 4.58 K/UL 1.50-7.50 ABSOLUTE LYMPHOCYTES (test code = 1067) 1.36 K/UL 1.00-4.00 ABSOLUTE MONOCYTES (test code = 1068) 0.44 K/UL 0.20-1.00 ABSOLUTE EOSINOPHILS (test code = 1040) 0.22 K/UL 0.00-0.50 ABSOLUTE BASOPHILS (test code = 1069) 0.05 K/UL 0.00-0.20 ABS IMMATURE GRANULOCYTES (test code = 1020) 0.02 K/UL 0.00-0.10 ABS NUCLEATED RBCS (test code = 97863) 0.00 K/UL 0.00-0.11 [facility] has important pathology staff changes effective 09/07/2022. New pathology staff will provide uninterrupted, excellent patient care and clinical consultation. See URL: [email or web address]. UNLESS OTHERWISE INDICATED, ALL TESTING PERFORMED AT [facility] [address] [place] [address] [employer] IN[employer]: FRANK GALVEZ M.D. CLIA NUMBER [id number] [facility] [place]. [id number]
[2024-08-04] MEDS ORDERED: ONDANSETRON 4 MG/2 ML VIAL ONE (07:23)
[2024-08-04] MEDS ORDERED: MECLIZINE HCL 12.5 MG TAB ONE ×2 (07:24→14:54)
[2024-08-04] MEDS ORDERED: NA CHLORIDE 0.9% 500 ML ONE (07:24)
[2024-08-04 07:34] LABS: Absolute Eosinophils 0.2 K/uL (0-0.5); Absolute Lymphocytes (CBC) 0.7 K/uL (0.7-4.9); Absolute Monocytes 0.4 K/uL (0.1-1.3); Absolute Neutrophil 3.2 K/uL (1.8-8.0); Basophils % 0.9 % (0-1.3); Eosinophils % 5.1 % (0-4.4); Hemoglobin 12.7 g/dL (12.0-15.0); Lymphocytes % 15.7 % (15.3-44.8); MCH 31.4 pg (27.0-35.0); MCHC 34.2 g/dL (32.0-36.0); MCV 91.6 fL (80-100); MPV 7.8 fL (7.6-11.3); Monocytes % 7.8 % (3.3-12.3); Neutrophils % 70.5 % (41.7-73.7); Nucleated Red Blood Cells % 0.1 % (0-0); Platelets 272 thou/uL (152-406); RBC Red Blood Cell Count 4.04 M/uL (3.86-4.86); Red Cell Distribution Width 14.7 % (12.1-15.2)
[2024-08-04 07:38] LABS: PT Prothrombin Time 10.5 SECONDS (9.4-12.5); PTT, Activated Partial Thromb 29.2 SECONDS (24.3-36.9)
[2024-08-04 07:47] LABS: ALT/SGPT 20 U/L (13-56); AST/SGOT 11 U/L (15-37); Albumin 3.2 g/dL (3.4-5.0); Albumin/Globulin Ratio 0.9 (1.1-1.8); Alkaline Phosphatase 70 U/L (45-117); BUN Blood Urea Nitrogen 25 mg/dL (7-18); Bicarbonate 27 mEq/L (21-32); Bilirubin Total 0.4 mg/dL (0.2-1.0); Globulin 3.6 g/dL (2.3-3.5); Glomerular Filtration Rate 75 ml/min (=/>90); Glucose Level 121 mg/dL (74-106); Magnesium 2.1 mg/dL (1.6-2.4); Protein, Total 6.8 g/dL (6.4-8.2); Sodium Level 139 mEq/L (136-145); Troponin High Sensitivity 5.6 pg/mL (<58.9)
[2024-08-04 07:49] LABS: Bilirubin Direct < 0.2 mg/dL (0-0.2); Bilirubin Indirect, Calculated 0.2 mg/dL (0.2-0.8)
--- NOTE | 2024-08-04 08:05 | RAD REPORT ---
EXAM: Chest Single View HISTORY: dizziness COMPARISON: 03/09/2023 FINDINGS: LUNGS/PLEURA: The lungs are clear. No pleural effusions or pneumothorax. No pulmonary edema. MEDIASTINUM: The mediastinal silhouette is within normal limits. CARDIAC: The cardiac silhouette is within normal limits. UPPER ABDOMEN: No significant abnormality. BONES: No acute abnormality. LINES/TUBES/OTHER: Left IJ approach Port-A-Cath with tip overlying the proximal SVC. IMPRESSION: No evidence of acute cardiopulmonary disease.
--- NOTE | 2024-08-04 08:20 | RAD REPORT ---
EXAMINATION: CT HEAD WITHOUT CONTRAST CLINICAL INDICATION: Female, 59 years old.DIZZINESS TECHNIQUE: Axial CT images from the skull base to the vertex without intravenous contrast. Coronal an d sagittal reformatted images were created from the data set. One or more of the following dose reduction techniques were used: Automated exposure control, adjustment of the mA and/or kV according to patient size, and/or iterative reconstruction. Unless otherwise specified, incidental findings do not require dedicated imaging follow-up. [id number]. COMPARISON: No prior exam. FINDINGS: INTRACRANIAL: No acute intracranial hemorrhage. No hydrocephalus. No mass effect or midline shift. Mo derate chronic small vessel ischemic changes.Subcortical white matter hypoattenuation at the left frontal lobe which is eccentric to the right frontal lobe. VASCULATURE: No visualized abnormalities in the arteries or dural venous sinuses. SCALP/SKULL: No significant soft tissue or osseous abnormalities. SINUSES: The visualized paranasal sinuses and mastoid air cells are predominantly clear. IMPRESSION: Eccentric left frontal lobe subcortical white matter hypoattenuation with differential to include lat e acute or subacute infarct, asymmetric white matter disease, or possibly (and less likely) vasogenic edema in the setting of an underlying lesion. Recommend further evaluation with MRI with an d without contrast. No acute intracranial hemorrhage.
--- NOTE | 2024-08-04 08:21 | RAD REPORT ---
EXAMINATION: CTA NECK CLINICAL INDICATION: Female, 59 years old. dizziness TECHNIQUE: Axial CT images were obtained from the aortic arch to the skull base after intravenous con trast utilizing angiographic protocol with 3D post-processing (maximum intensity projection images, volume rendered images and/or shaded surface rendered images). One or more of the following dose redu ction techniques were used: Automated exposure control, adjustment of the mA and/or kV according to patient size, and/or iterative reconstruction. Unless otherwise specified, incidental findings do not require dedicated imaging follow-up. [id number]. NASCET criteria used. Mild 0-49% stenosis Moderate 50-69% stenosis Severe 70-99% stenosis COMPARISON: No prior exam. FINDINGS: AORTA: The imaged aortic arch is normal. CCA: The common carotid arteries are patent and normal in caliber. ICA/ECA: Bilateral internal and external carotid arteries are patent. There is no significant interna l carotid artery stenosis. Where applicable, degree of stenosis is measured using NASCET-like criteria. VERTEBRAL: Left dominant vertebral artery. Diminutive but patent right vertebral artery. SOFT TISSUE: No significant neck soft tissue abnormalities. The visualized lung apices are clear.Left IJ approach Port-A-Cath. 3D images confirm these findings. IMPRESSION: No flow-limiting stenosis or dissection identified within the neck.
--- NOTE | 2024-08-04 08:24 | RAD REPORT ---
EXAMINATION: CTA HEAD CLINICAL INDICATION: Female, 59 years old. DIZZINESS TECHNIQUE: Axial CT images were obtained through the head after intravenous contrast utilizing angiog raphic protocol with 3D post-processing (maximum intensity projection images, volume rendered images and/or shaded surface rendered images). One or more of the following dose reduction technique s were used: Automated exposure control, adjustment of the mA and/or kV according to patient size, and/or iterative reconstruction. Unless otherwise specified, incidental findings do not require dedic ated imaging follow-up. COMPARISON: No prior exam. FINDINGS: ICA: The petrous, cavernous, and supraclinoid segments of the bilateral internal carotid arteries are normal. The posterior communicating arteries are patent. Minimal calcified plaque at the left cavernous carotid. BHUPENDRA: Anterior cerebral arteries are normal bilaterally. The anterior communicating artery is patent. MCA: Middle cerebral arteries are normal bilaterally. TANK FILLER: Posterior cerebral arteries are normal bilaterally. Vertebrobasilar: The vertebral arteries are patent. The basilar artery is normal in appearance. 3D images confirm these findings. IMPRESSION: No occlusion, aneurysm, or hemodynamically significant stenosis identified.
[2024-08-04 08:47] LABS: Specific Gravity > 1.030 (1.005-1.030); Sqamous Epithelial <5 /HPF (None Seen); Urine Bacteria <20 /HPF (<20); Urine Bilirubin NEGATIVE (Negative); Urine Blood Negative (Negative); Urine Clarity Clear (Clear); Urine Color Light-Yellow (Yellow); Urine Culture Reflex Order REFLEXED; Urine Glucose NEGATIVE (Negative); Urine Ketones NEGATIVE (Negative); Urine Microscopic Reflex YN ORDER UMIC; Urine Mucus Slight /HPF (None Seen); Urine Nitrite NEGATIVE (Negative); Urine Protein NEGATIVE (Negative); Urine RBC <5 /HPF (None Seen); Urine Urobilinogen Normal (Normal); Urine pH 7.5 (5.0-7.0)
--- NOTE | 2024-08-04 09:43 | ER ---
Nurse's Notes [facility] Name: Maylin Carlton Age: 59 yrs Sex: Female : 1965 Arrival Date: 08/04/2024 Time: 06:48 Bed 3 Private MD: Diagnosis: Cerebral infarction, unspecified;Vertigo Presentation: 08/04 07:02 Chief complaint: Patient states: dizziness and nausea that began Monday and resolved aa5 but came back this morning. Pt also reports vomited once today. 07:02 Coronavirus screen: At this time, the client does not indicate any symptoms associated aa5 with coronavirus-19. Ebola Screen: Patient denies travel to an Ebola-affected area in the 21 days before illness onset. Initial Sepsis Screen: Does the patient meet any 2 criteria? No. Patient's initial sepsis screen is negative. Does the patient have a suspected source of infection? No. Patient's initial sepsis screen is negative. Risk Assessment: Do you want to hurt yourself or someone else? Patient reports no desire to harm self or others. Onset of symptoms was July 2024. 07:02 Acuity: JODI 3 aa5 07:02 Method Of Arrival: Wheelchair aa5 Historical: - Allergies: 07:06 NKA; ll1 - PMHx: 07:06 Asthma; cervical cancer; Hypertensive disorder; ll1 - Immunization history:: Adult Immunizations up to date. - Infectious Disease History:: Denies. - Family history:: not pertinent. - Hospitalizations: : No recent hospitalization is reported. - Social history:: Smoking status: Patient reports the use of cigarette tobacco products. Screenin:05 [facility] [place] ED Fall Risk Assessment (Adult) History of falling in the last 3 months, aa5 including since admission No falls in past 3 months (0 pts) Confusion or Disorientation No (0 pts) Intoxicated or Sedated No (0 pts) Impaired Gait Yes (1 pt) Mobility Assist Device Used No (0 pt) Altered Elimination No (0 pt) Score/Fall Risk Level 0 - 2 = Low Risk Oriented to surroundings, Maintained a safe environment, Educated pt \T\ family on fall prevention, incl call for assistance when getting out of bed. Abuse screen: Denies threats or abuse. Nutritional screening: No deficits noted. Tuberculosis screening: No symptoms or risk factors identified. 07:39 [place] Swallow Protocol Exclusion Criteria: Unable to remain alert for testing: No NPO aa5 for medical/surgical reason by provider order No Head-of-bed restricted <30 degrees Tracheostomy tube present No No thin liquids due to preexisting dysphagia/baseline modified diet thickened liquids No Exclusion Criteria Result: Proceed Brief Cognitive Screen What is your name? Normal, Where are you right now? Normal, What year is it? Normal. Oral Mechanism Examination Facial Symmetry: Normal, Motion: Normal, Lip Closure: Normal, Oral Mechanism Result: Normal. 3 oz Water Swallow Challenge: Pt able to drink all water without stopping, coughing, choking or throat clearing: Yes Result: PASS MD Notified: Yoel Díaz MD. Assessment: 07:05 General: Appears uncomfortable, Behavior is calm, cooperative. Pain: Denies pain. aa5 Neuro: Level of Consciousness is awake, alert, obeys commands, Oriented to person, place, time, situation, Clinical Staff Anesthesiologist are equal bilaterally Moves all extremities. Speech is normal, Facial symmetry appears normal, Pt reports feeling unsteady upon walking. . Cardiovascular: Heart tones S1 S2 present Rhythm is sinus rhythm. Respiratory: Airway is patent Respiratory effort is even, unlabored, Respiratory pattern is regular, symmetrical. GI: Abdomen is obese, Bowel sounds present X 4 quads. Abd is soft and non tender X 4 quads. Reports nausea, vomited once this morning. : No signs and/or symptoms were reported regarding the genitourinary system. EENT: No signs and/or symptoms were reported regarding the EENT system. Derm: Skin is pink, warm \T\ dry. Musculoskeletal: Range of motion: intact in all extremities. 08:17 Reassessment: MD at bedside speaking to pt . aa5 08:22 Reassessment: Patient is alert, oriented x 3, equal unlabored respirations, skin aa5 warm/dry/pink. Patient states feeling better. Pt assisted to bedside commode, tolerated well, pt now back in bed. . 09:32 Reassessment: MD at bedside . aa5 09:50 Reassessment: Patient is alert, oriented x 3, equal unlabored respirations, skin aa5 warm/dry/pink. lights dimmed for comfort. . 11:00 Reassessment: Hospitalist at bedside . aa5 Vital Signs: 07:07 BP 160 / 95; Pulse 75; Resp 18; Temp 97.6(O); Pulse Ox 98% on R/A; Weight 95.25 kg; oe Height 5 ft. 1 in. ; 08:28 BP 152 / 85; Pulse 71; Resp 16 S; Pulse Ox 100% on R/A; aa5 09:30 BP 131 / 75; Pulse 63; Resp 16 S; Pulse Ox 99% on R/A; aa5 07:07 Body Mass Index 39.68 (95.25 kg, 154.94 cm) oe NIH Stroke Scale Scores: 07:05 NIHSS Score: 0 aa5 ED Course: 06:50 Patient arrived in ED. [id number] 06:59 Yoel Díaz MD is Attending Physician. rn 07:02 Arm band placed on Patient placed in an exam room, on a stretcher. aa5 07:02 Patient has correct armband on for positive identification. Placed in gown. Bed in low aa5 position. Call light in reach. Side rails up X2. Client placed on continuous cardiac and pulse oximetry monitoring. NIBP monitoring applied. campus monitor on. Pulse ox on. NIBP on. 07:09 Lorraine Rodriguez, RN is Primary Nurse. aa5 07:11 Triage completed. aa5 07:18 Initial lab(s) drawn, by nv, sent to lab. Inserted saline lock: 20 gauge in right aa5 antecubital area, using aseptic technique. Blood collected. Flushed with 10 mL NS. 07:35 EKG done, by ED staff, reviewed by Yoel Díaz MD. aa5 07:46 No provider procedures requiring assistance completed. aa5 07:58 Chest Single View XRAY In Process Unspecified. EDMS 08:13 CT Head Brain wo Cont In Process Unspecified. EDMS 08:[address] In Process Unspecified. EDMS 08:[address] In Process Unspecified. EDMS 08:22 Urine collected: sent urine to lab. aa5 09:42 Jonah Davila is Hospitalizing Provider. rn 11:30 Patient admitted, IV remains in place. aa5 Administered Medications: 07:33 Drug: NS 0.9% IV 500 ml 500 ml IV at 1 bolus once; to be given as a bolus over 30 aa5 minutes Volume: 500 ml; Route: IV; Rate: 1 bolus; Site: right antecubital; 08:03 Follow up: IV Status: Completed infusion; IV Intake: 500ml aa5 07:33 Drug: Ondansetron IVP 4 mg IVP once; over 2 minutes Route: IVP; Site: right antecubital;aa5 07:43 Follow up: Response: No adverse reaction aa5 07:40 Drug: Meclizine PO 50 mg PO once Route: PO; aa5 09:50 Follow up: Response: No adverse reaction aa5 09:50 Drug: Aspirin PO 325 mg PO once Route: PO; aa5 11:00 Follow up: Response: No adverse reaction aa5 09:50 Drug: foLIC Acid IVPB 1 mg IVPB once Route: IVPB; Site: right antecubital; aa5 Medication: 07:44 VIS not applicable for this client. aa5 Intake: 08:03 IV: 500ml; Total: 500ml. aa5 Outcome: 09:42 Decision to Hospitalize by Provider. rn 11:30 Admitted to ER Hold. Please see [facility] for further documentation. aa5 11:30 Condition: stable 11:30 Instructed on the need for admit, Demonstrated understanding of instructions, 17:07 Patient left the ED. hb NIH Stroke Scale - NIH Stroke Score Date: 08/04/2024 Time: 07:05 Total Score = 0 10. Dysarthria (speech clarity - read or repeat words) - 0(Normal) 11. Extinction and Inattention (visual/tactile/auditory/spatial/personal) - 0(No abnormality) 1a. Level of Consciousness (LOC) - 0(Alert) 1b. Level of Consciousness (LOC) (Month \T\ Age) - 0(Both) 1c. LOC Commands (Open \T\ Closes Eyes/Provider Network Manager) - 0(Both) 2. Best Gaze (Lateral Gaze Paresis) - 0(Normal) 3. Visual Field Loss - 0(No visual loss) 4. Facial Palsy - 0(Normal) 5a. Left Arm: Motor (10-second hold) - 0(No drift) 5b. Right Arm: Motor (10-second hold) - 0(No drift) 6a. Left Leg: Motor (5-second hold - always test supine) - 0(No drift) 6b. Right Leg: Motor (5-second hold - always test supine) - 0(No drift) 7. Limb Ataxia (finger/nose \T\ heel/manjarrez - test with eyes open) - 0(Absent) 8. Sensory Loss (pinprick arms/legs/face) - 0(Normal) 9. Best Language: Aphasia (description/naming/reading) - 0(No aphasia) Initials: aa5 Signatures: Dispatcher [employer] EDYoel Pina MD MD rn Calderon, Audri RN RN aa5 Radha Wilson RN RN Noah Lowry Lynsay, RN RN ll1 Rosa Felix6 Corrections: (The following items were deleted from the chart) 07:44 07:06 Arm band placed on Patient placed in an exam room, on a stretcher, ll1 aa5
--- NOTE | 2024-08-04 09:43 | EDPHYS ---
Physician Documentation [facility] Name: Maylin Carlton Age: 59 yrs Sex: Female : 1965 Arrival Date: 08/04/2024 Time: 06:48 Bed 3 Private MD: ED Physician Yoel Díaz HPI: 08/04 07:09 This 59 yrs old Female presents to ER via Unassigned with complaints of Vertigo, Nausea.rn 07:09 The patient presents to the emergency department with nausea, vomiting. rn 07:09 The patient presents with dizziness, feeling off balance, vertigo. Onset: The rn symptoms/episode began/occurred 6 day(s) ago. Modifying factors: The symptoms are alleviated by nothing, the symptoms are aggravated by movement of head. Severity of symptoms: At their worst the symptoms were moderate in the emergency department the symptoms are unchanged. The patient has not experienced similar symptoms in the past. The patient has not recently seen a physician. Pt reports 6 days of dizziness, feels "wobbly" when walking. No fever/head injury/focal weakness/numbness, no vision changes. No headache or neck pain. Has never had before. Reports worse when turning head to left. . Historical: - Allergies: 07:06 NKA; ll1 - PMHx: 07:06 Asthma; cervical cancer; Hypertensive disorder; ll1 - Immunization history:: Adult Immunizations up to date. - Infectious Disease History:: Denies. - Family history:: not pertinent. - Hospitalizations: : No recent hospitalization is reported. - Social history:: Smoking status: Patient reports the use of cigarette tobacco products. ROS: 07:09 Constitutional: Negative for fever, chills, and weight loss, Neck: Negative for injury, rn pain, and swelling, Cardiovascular: Negative for chest pain, palpitations, and edema, Respiratory: Negative for shortness of breath, cough, wheezing, and pleuritic chest pain, Abdomen/GI: Negative for abdominal pain, diarrhea, and constipation, MS/Extremity: Negative for injury and deformity, Skin: Negative for injury, rash, and discoloration, Neuro: Negative for headache, weakness, numbness, tingling, and seizure, Exam: 07:09 Constitutional: This is a well developed, well nourished patient who is awake, alert, rn and in no acute distress. Ambulatory to bathroom and room without assistance or difficulty Head/Face: Normocephalic, atraumatic. Eyes: Pupils equal round and reactive to light, extra-ocular motions intact. ENT: dry MM Neck: No meningismus Cardiovascular: Regular rate and rhythm. No pulse deficits. Respiratory: No increased work of breathing, no retractions or nasal flaring. Abdomen/GI: Soft, non-tender Skin: Warm, dry MS/ Extremity: Pulses equal, no cyanosis. Neurovascular intact. Full, normal range of motion. Equal circumference. Neuro: Awake and alert, GCS 15, oriented to person, place, time, and situation. Cranial nerves II-XII grossly intact. Motor strength 5/5 in all extremities. Sensory grossly intact. Cerebellar exam normal. Normal gait. 07:37 ECG was reviewed by the Attending Physician. rn Vital Signs: 07:07 BP 160 / 95; Pulse 75; Resp 18; Temp 97.6(O); Pulse Ox 98% on R/A; Weight 95.25 kg; oe Height 5 ft. 1 in. ; 08:28 BP 152 / 85; Pulse 71; Resp 16 S; Pulse Ox 100% on R/A; aa5 09:30 BP 131 / 75; Pulse 63; Resp 16 S; Pulse Ox 99% on R/A; aa5 07:07 Body Mass Index 39.68 (95.25 kg, 154.94 cm) oe NIH Stroke Scale Scores: 07:05 NIHSS Score: 0 aa5 MDM: 06:59 Medical Screening Exam initiated rn 08:21 Response to treatment: the patient's symptoms have mildly improved after treatment. rn 08:21 Differential diagnosis: CVA, generalized weakness, hypovolemia, idiopathic dizziness, rn TIA, vertigo. 09:41 Data reviewed: vital signs, nurses notes, lab test result(s), EKG, radiologic studies, rn CT scan, and as a result, I will admit patient. Consideration of Admission/Observation Patient was admitted/placed on observation. Escalation of care including admission/observation considered. Counseling: I had a detailed discussion with the patient and/or guardian regarding the historical points, exam findings, and any diagnostic results supporting the discharge/admit diagnosis, lab results, radiology results, the need for further work-up and treatment in the hospital. ED course: Patient with abnormal finding on CT head without contrast, concerning for late acute versus subacute cerebral infarction. Patient does not have history of stroke and has never been worked up for stroke. Will admit to hospitalist service for further evaluation with neurological consult.. 08/04 07:06 Order name: Basic Metabolic Panel; Complete Time: 08:02 rn 08/04 07:06 Order name: CBC with Diff; Complete Time: 08:02 rn 08/04 07:06 Order name: Hepatic Function; Complete Time: 08:02 rn 08/04 07:06 Order name: Magnesium; Complete Time: 08:02 rn 08/04 07:06 Order name: Protime (+inr); Complete Time: 08:02 rn 08/04 07:06 Order name: Ptt, Activated; Complete Time: 08:02 rn 08/04 07:06 Order name: Troponin High Sensitivity; Complete Time: 08:02 rn 08/04 07:06 Order name: Urinalysis w/ reflexes; Complete Time: 09:27 rn 08/04 08:51 Order name: Urine Culture EDMS 08/04 11:17 Order name: Vitamin B12 Level EDMS 08/04 11:17 Order name: Vitamin D, 25 (OH), TOTAL EDMS 08/04 11:17 Order name: Basic Metabolic Panel EDMS 08/04 11:17 Order name: Basic Metabolic Panel EDMS 08/04 11:17 Order name: CBC with Automated Diff EDMS 08/04 11:17 Order name: CBC with Automated Diff EDMS 08/04 11:17 Order name: Lipid Profile EDMS 08/04 11:17 Order name: Lipid Profile EDMS 08/04 11:17 Order name: Magnesium EDMS 08/04 11:17 Order name: Magnesium EDMS 08/04 11:17 Order name: Phosphorus EDMS 08/04 11:17 Order name: Phosphorus EDMS 08/04 11:17 Order name: C-ANCA Anti-Proteinase 3 EDMS 08/04 11:17 Order name: Homocysteine EDMS 08/04 11:18 Order name: T4,Total EDMS 08/04 11:18 Order name: T4,Total EDMS 08/04 11:18 Order name: Thyroid Stimulating Hormone EDMS 08/04 11:18 Order name: Thyroid Stimulating Hormone EDMS 08/04 11:18 Order name: Troponin High Sensitivity EDMS 08/04 11:18 Order name: Troponin High Sensitivity EDMS 08/04 11:18 Order name: Troponin High Sensitivity [facility] 08/04 07:06 Order name: CT Head Brain wo Cont; Complete Time: 08:25 rn 08/04 07:06 Order name: Chest Single View XRAY; Complete Time: 08:07 rn 08/04 07:06 Order name: Head Angio CT; Complete Time: 08:25 rn 08/04 07:06 Order name: Neck Angio CT; Complete Time: 08:25 rn 08/04 11:17 Order name: Echo with Doppler [facility] 08/04 11:18 Order name: Stroke Protocol [facility] 08/04 11:17 Order name: Physical Therapy Consult [facility] 08/04 11:17 Order name: Speech Therapy Consult [facility] 08/04 07:06 Order name: Cardiac monitoring; Complete Time: 07: rn 08/04 07:06 Order name: EKG - Nurse/Tech; Complete Time: 07:40 rn 08/04 07:06 Order name: IV Saline Lock; Complete Time: 07:22 rn 08/04 07:06 Order name: Labs collected and sent; Complete Time: 07: rn 08/04 07:06 Order name: NPO; Complete Time: 07: rn 08/04 07:06 Order name: O2 Per Protocol; Complete Time: 07: rn 08/04 07:06 Order name: O2 Sat Monitoring; Complete Time: 07: rn EC:37 Rate is 62 beats/min. Rhythm is regular. QRS [place] is Normal. TX interval is normal. QRS rn interval is normal. QT interval is normal. No Q waves. T waves are Normal. No ST changes noted. Clinical impression: Normal ECG. Interpreted by me. Reviewed by me. Administered Medications: 07:33 Drug: NS 0.9% IV 500 ml 500 ml IV at 1 bolus once; to be given as a bolus over 30 aa5 minutes Volume: 500 ml; Route: IV; Rate: 1 bolus; Site: right antecubital; 08:03 Follow up: IV Status: Completed infusion; IV Intake: 500ml aa5 07:33 Drug: Ondansetron IVP 4 mg IVP once; over 2 minutes Route: IVP; Site: right antecubital;aa5 07:43 Follow up: Response: No adverse reaction aa5 07:40 Drug: Meclizine PO 50 mg PO once Route: PO; aa5 09:50 Follow up: Response: No adverse reaction aa5 09:50 Drug: Aspirin PO 325 mg PO once Route: PO; aa5 11:00 Follow up: Response: No adverse reaction aa5 09:50 Drug: foLIC Acid IVPB 1 mg IVPB once Route: IVPB; Site: right antecubital; aa5 Disposition Summary: 08/04/24 09:42 Hospitalization Ordered Notes: Hospitalization Status: Inpatient Admission rn Provider: Jonah Davila rn Condition: Stable rn Problem: new rn Symptoms: are unchanged rn Bed/Room Type: Standard rn Location: Telemetry/MedSurg (Inpatient)(08/04/24 15:50) eb Room Assignment: 214(08/04/24 15:50) eb Diagnosis - Cerebral infarction, unspecified rn - Vertigo rn Forms: - Medication Reconciliation Form rn - SBAR form rn - Leadership Thank You Letter rn NIH Stroke Scale - NIH Stroke Score Date: 08/04/2024 Time: 07:05 Total Score = 0 10. Dysarthria (speech clarity - read or repeat words) - 0(Normal) 11. Extinction and Inattention (visual/tactile/auditory/spatial/personal) - 0(No abnormality) 1a. Level of Consciousness (LOC) - 0(Alert) 1b. Level of Consciousness (LOC) (Month \\T\\ Age) - 0(Both) 1c. LOC Commands (Open \\T\\ Closes Eyes/Track Inspecting Supervisor) - 0(Both) 2. Best Gaze (Lateral Gaze Paresis) - 0(Normal) 3. Visual Field Loss - 0(No visual loss) 4. Facial Palsy - 0(Normal) 5a. Left Arm: Motor (10-second hold) - 0(No drift) 5b. Right Arm: Motor (10-second hold) - 0(No drift) 6a. Left Leg: Motor (5-second hold - always test supine) - 0(No drift) 6b. Right Leg: Motor (5-second hold - always test supine) - 0(No drift) 7. Limb Ataxia (finger/nose \\T\\ heel/manjarrez - test with eyes open) - 0(Absent) 8. Sensory Loss (pinprick arms/legs/face) - 0(Normal) 9. Best Language: Aphasia (description/naming/reading) - 0(No aphasia) Initials: aa5 Signatures: Dispatcher [employer] EDMS Yoel Díaz MD MD rn Calderon, Audri RN RN aa5 Radha Wilson RN RN hb Maria M Tirado Lynsay RN RN ll1 Corrections: (The following items were deleted from the chart) 07:06 07:06 Head Brain Wo Cont+CT.RAD.BRZ ordered. EDMS EDMS 07:06 07:06 Chest Single View+RAD.RAD.BRZ ordered. EDMS EDMS 07:06 07:06 Head Angio+CT.RAD.BRZ ordered. EDMS EDMS 07:06 07:06 Neck Angio+CT.RAD.BRZ ordered. EDNC EDMS 12:15 09:42 Telemetry/MedSurg (Inpatient) rn hb 12:15 09:42 rn hb 12:16 12:15 hb hb 12:47 12:16 HLD3 hb hb 15:50 12:15 [facility] ER HOLD hb eb 15:50 12:47 ERHOLD- hb eb
[2024-08-04] MEDS ORDERED: FOLIC ACID 5 MG/ML VIAL ONE (09:47)
[2024-08-04] MEDS ORDERED: ASPIRIN 325 MG TAB ONE (09:47)
--- NOTE | 2024-08-04 11:19 | P.HP ---
Certification for Inpatient Patient admitted to: Observation With expected LOS: <2 Midnights Patient will require the following post-hospital care: None Practitioner: I am a practitioner with admitting privileges, knowledge of patient current condition, hospital course, and medical plan of care. Services: Services provided to patient in accordance with Admission requirements found in Title 42 Section 412.3 of the Code of Federal Regulations Patient History Date of Service: 08/04/24 Reason for admission: acute vs subacute CVA History of Present Illness: Flora Carlton is a 59 year old female with pmhx HTN, asthma, cervical cancer, and smoking abuse who presents to the ED with dizziness. She reports intermittent dizziness causing the room to spin but does not happen all day or everyday. CT head reports late acute vs subacute CVA. she denies heart and stroke history. Laboratory evaluation significant for serum glucose 121, GFR 75, BUN 25. Initial vitals BP 160 / 95; Pulse 75; Resp 18; Temp 97.6(O); Pulse Ox 98% on R/A. NIHSS 0 CT Head reports "Eccentric left frontal lobe subcortical white matter hypoattenuation with differential to include late acute or subacute infarct, asymmetric white matter disease, or possibly (and less likely) vasogenic edema in the setting of an underlying lesion. Recommend further evaluation with MRI with and without contrast. No acute intracranial hemorrhage." CTA Head/Neck reports "No occlusion, aneurysm, or hemodynamically significant stenosis identified." CXR reports "No evidence of acute cardiopulmonary disease." Maylin will be admitted to hospitalist service for further evaluation and treatment of acute vs subacute CVA, Dr. Lawton consulted. Allergies No Known Allergies Allergy (Verified 10/03/20 01:56) Home Medications: Albuterol Inhaler [Ventolin Inhaler*] 2 puff IH Q6H PRN #1 hfa.aer.ad 10/03/20 Losartan/Hydrochlorothiazide [Losartan-Hctz 50-12.5 mg Tab] 50 mg PO DAILY 08/04/24 - Past Medical/Surgical History Diabetic: No -: Asthma -: Cervical cancer -: Hypertension -: Smoker Past Surgical History: Reviewed- Non-Contributory - Social History Smoking Status: Current every day smoker Alcohol use: No CD- Drugs: No Caffeine use: No Review of Systems Neurological: Other (Dizziness) Physical Examination - Physical Exam General: Alert, In no apparent distress, Oriented x3 HEENT: Atraumatic, Normocephalic, PERRLA Neck: 2+ carotid pulse no bruit, JVD not distended Respiratory: Clear to auscultation bilaterally, Normal air movement Cardiovascular: Normal pulses, Regular rate/rhythm, Normal S1 S2 Capillary refill: <2 Seconds Gastrointestinal: Normal bowel sounds, Soft and benign Musculoskeletal: No clubbing Integumentary: No breakdown Neurological: Normal speech, Normal tone, Other (NIHSS 0) - Studies Laboratory Data (last 24 hrs) 08/04/24 08/04/24 08/04/24 07:18 07:18 07:18 WBC 4.50 Hgb 12.7 Hct 37.0 Plt Count 272 PT 10.5 INR 1.00 APTT 29.2 Sodium 139 Potassium 4.0 BUN 25 H Creatinine 0.90 Glucose 121 H Magnesium 2.1 Total Bilirubin 0.4 AST 11 L ALT 20 Alkaline Phosphatase 70 Assessment and Plan - Plan Assessment and plan Late acute versus subacute Cerebrovascular Accident Dizziness likely vertigo - Consulted Neurology - recommendations appreciated - Admit under observation status - No neurologic deficits on my exam - NIHSS = 0 - Allow permissive hypertension for tonight - q4hr neurochecks - Ordered MRI brain w/wo contrast - Ordered TTE - PT/OT evaluation requested - Ordered risk profile: Hgb A1c, lipid panel, TSH - Started aspirin, folic acid, atorvastatin - Meclizine 25 mg Q6hr HTN asthma -continue home medications Smoking abuse -Cessation education provided DVT ppx lovenox Full code LOS 24 hr OBS Discharge Plan: Home Plan to discharge in: 24 Hours - Advance Directives Does patient have a Living Will: No Does patient have a Durable POA for Healthcare: No
[2024-08-04] MEDS ORDERED: NA CHLORIDE 0.9% 1,000 ML ONE (11:38)
[2024-08-04] MEDS ORDERED: ENOXAPARIN 40 MG/0.4 ML SQ ONE (11:38)
[2024-08-04] MEDS: ENOXAPARIN 40 MG/0.4 ML SQ SCH (11:49)
[2024-08-04] MEDS: NA CHLORIDE 0.9% 1,000 ML IV SCH (11:50)
[2024-08-04 12:09] VITALS: BMI 39.6
[2024-08-04] MEDS: MECLIZINE HCL 12.5 MG TAB PO PRN (14:56)
[2024-08-04] MEDS ORDERED: ALBUTEROL INHALER 200 PUFF/6.7 GM IH PRN (19:12)
[2024-08-04] MEDS: ATORVASTATIN 40 MG TAB PO SCH (20:33)
[2024-08-04] MEDS: levETIRAcetam 500 MG TAB PO SCH (20:33)
[2024-08-04] MEDS: MELATONIN 3 MG TABLET PO PRN (21:44)
[2024-08-05] MEDS: ONDANSETRON 4 MG/2 ML VIAL IV ONE (05:43)
[2024-08-05 06:59] LABS: Absolute Eosinophils 0.1 K/uL (0-0.5); Absolute Lymphocytes (CBC) 0.6 K/uL (0.7-4.9); Absolute Monocytes 0.4 K/uL (0.1-1.3); Absolute Neutrophil 5.4 K/uL (1.8-8.0); Basophils % 0.7 % (0-1.3); Eosinophils % 1.7 % (0-4.4); Hematocrit 38.9 % (36.0-45.0); Hemoglobin 13.1 g/dL (12.0-15.0); Lymphocytes % 9.6 % (15.3-44.8); MCH 31.1 pg (27.0-35.0); MCHC 33.6 g/dL (32.0-36.0); MCV 92.5 fL (80-100); MPV 7.4 fL (7.6-11.3); Monocytes % 5.8 % (3.3-12.3); Neutrophils % 82.2 % (41.7-73.7); Nucleated Red Blood Cells % 0.1 % (0-0); Platelets 280 thou/uL (152-406); RBC Red Blood Cell Count 4.21 M/uL (3.86-4.86); Red Cell Distribution Width 14.6 % (12.1-15.2)
[2024-08-05 07:30] LABS: Anion Gap 6.4 mEq/L (5.0-15.0); Magnesium 1.9 mg/dL (1.6-2.4); Phosphorus 2.4 mg/dL (2.5-4.9); Potassium 4.4 mEq/L (3.5-5.1); T4,Total 8.5 ug/dL (4.8-13.9); Thyroid Stimulating Hormone 2.76 uIU/mL (0.358-3.740)
[2024-08-05] MEDS: ONDANSETRON 4 MG/2 ML VIAL IV PRN (09:43)
[2024-08-05] MEDS: LOSARTAN/HCTZ 50-12.5 PO SCH (09:58)
[2024-08-05] MEDS: ASPIRIN EC 81 MG TAB PO SCH (09:58)
[2024-08-05] MEDS: FOLIC ACID 1 MG TABLET PO SCH (09:58)
[2024-08-05] MEDS: CLOPIDOGREL 75 MG TABLET PO SCH (09:58)
[2024-08-05] MEDS: PROMETHAZINE INJ 25 MG/ML AMP IV PRN (13:39)
[2024-08-05] MEDS: MECLIZINE HCL 12.5 MG TAB PO SCH (15:06)
--- NOTE | 2024-08-05 17:17 | RAD REPORT ---
EXAM: Brain W/Wo Cont CLINICAL INDICATION: 59 years Female CVA on CT head. TECHNIQUE: Pre-contrast sagittal and axial T1-w, and axial T2-FLAIR, GRE, and diffusion-w sequences o f the brain with ADC maps. Post-contrast axial fat-saturated T2-w and T1-w, and sagittal volumetric T1-w images of the brain with axial and coronal reformations. Intravenous contrast material was admin istered for the examination.[id number] COMPARISON: Head CT from yesterday FINDINGS: INTRACRANIAL: No acute infarct identified. No significant mass effect or midline shift. No hydroceph alus. Moderate and age advanced predominantly frontal lobe T2/FLAIR hyperintense signal intensity within the subcortical and deep white matter.Mild cerebral atrophy. No abnormal enhancement. VASCULATURE: Normal signal voids in the larger intracranial arteries and dural venous sinuses. SINUSES: No significant paranasal sinus thickening.No mastoid effusions. BONE: The marrow signal pattern is within normal limits. IMPRESSION: No acute intracranial abnormality. No abnormal enhancement. Moderate bilateral, predominantly frontal lobe, white matter signal changes. These findings are nonsp ecific and represent a broad differential diagnosis but typically secondary to chronic small vessel ischemic changes in the patient of this age group.
[2024-08-05] MEDS: ACETAMINOPHEN 500 MG TAB PO PRN (20:23)
--- NOTE | 2024-08-05 20:40 | P.PN ---
Date of Service: 08/05/24 Subjective Feeling nauseous today afebrile, and hemodynamically stable ROS 10 point ROS as noted above, otherwise negative Physical Exam General: Alert and Oriented x3, NAD HEENT: Atraumatic, Normocephalic, PERRLA Neck: 2+ carotid pulse no bruit, JVD not distended Respiratory: Clear to auscultation bilaterally, Normal air movement Cardiovascular: Normal pulses, RRR, Normal S1 S2 Capillary refill: <2 Seconds Gastrointestinal: Normal bowel sounds, Soft and benign on palpation Musculoskeletal: No clubbing Integumentary: No breakdown Neurological: Normal speech, Normal tone, Other (NIHSS 0) Vitals Reviewed Problem list Late acute versus subacute Cerebrovascular Accident Dizziness likely vertigo HTN asthma Smoking abuse Assessment and Plan Late acute versus subacute Cerebrovascular Accident Dizziness likely vertigo - Consulted Neurology - recommendations appreciated - Admit under observation status - No neurologic deficits on my exam - NIHSS = 0 - Allow permissive hypertension for tonight - q4hr neurochecks - Ordered MRI brain w/wo contrast "No acute intracranial abnormality. No abnormal enhancement. Moderate bilateral, predominantly frontal lobe, white matter signal changes. These findings are nonspecific and represent a broad differential diagnosis but typically secondary to chronic small vessel ischemic changes in the patient of this age group." - TTE result pending - PT consulted -Passed speech evaluation - risk profile: Hgb A1c 5.7, lipid panel triglycerides 77, cholesterol 192, LDL 113, HDL 64, TSH/Free T4 2.76/8.5 - Started aspirin, folic acid, atorvastatin - Meclizine 25 mg Q6hr HTN asthma -continue home medications Smoking abuse -Cessation education provided DVT ppx lovenox Full code LOS 24 hr OBS Discharge Plan: Home Plan to discharge in: 24 Hours
--- NOTE | 2024-08-05 22:43 | CON ---
Reason For Consultation: Consultation called because of possible stroke. History Of Present Illness: Ms. Carlton is a 59-year-old right-handed patient with hypertens ion, asthma, cervical cancer, tobacco abuse, who comes to [facility] with dizzine ss, which typically is a feeling of the room spinning and triggered by getting up and walking around or turning her head around quickly. Symptoms are severe enough to cause nausea and vomiting. Lying still eases her symptoms. She was seen at [facility], admitted on 08/04/2024. Head CT scan showed possible late acute or subacute stroke in the left frontal region. However, subsequent brain MRI identified the area as small vessel ischemic disease and there was no finding of acute stroke, l eft or right, front or back of her brain. CT angiogram of her head and neck showed no significant oc clusion, aneurysm, or hemodynamically significant problem. Chest x-ray showed no acute cardiopulmona ry issues. She has had an NIH Stroke Scale of 0. She has had some improvement with meclizine 25 mg every 8 hours. She is to have the Terrance maneuver done by Physical Therapy. Past Medical History: As noted. Allergies: NO KNOWN DRUG ALLERGIES. Medications: Tylenol Extra Strength 500 mg every 4 hours as needed, albuterol nebulizer 2 puffs ever y 6 hours as needed, aspirin 162 mg daily, Lipitor 40 mg at bedtime, Plavix 75 mg daily, Lovenox 40 m g subcutaneously daily, folic acid 1 mg daily, Hyzaar 50/12.5 one daily, Keppra 500 mg twice daily, A ntivert 25 mg 3 times daily, melatonin 3 mg at bedtime, Zofran 4 mg every 6 hours as needed, Phenerga n 12.5 mg every 4 hours as needed. Family History: Noncontributory. Past Surgical History: Noncontributory. Social History: The patient is a daily heavy smoker of half pack to a pack a day. She denies any al cohol or intravenous drug use. Review of Systems: The nausea, vomiting, vertiginous symptoms that are triggered by movement. Otherwise, no fevers, chi lls. No myalgias, arthralgias. No rash. No psychiatric complaints. No genitourinary or gastrointe stinal complaints other than the nausea and vomiting as noted. Physical Examination: Vital Signs: Blood pressure 172/74, down to 147/70, pulse 62 to 73, temperature 99.2, oxygen saturat ion 100%, and respiratory rate 16 to 18. Weight 210 pounds, height 5 feet 1 inch, BMI 39.7. General: Ms. Carlton is lying in bed. She was able to get up and ambulate to the bathroom. HEENT: She is normocephalic, atraumatic. Sclerae anicteric. Oropharynx pink, moist. Neck: Supple. Chest: Clear. Heart: Regular. Extremities: Show no significant edema, cyanosis, or clubbing. Neurologic: She has no focal cranial nerve deficits. No loss of visual lyles. She has extraocular movements intact. Face is symmetric with equal excursions on smiling. Her arm and leg strength is 5/5 proximally and distally. Her sensation intact in upper and lower extremities proximally and dist ally. Coordination intact in upper and lower extremities. Gait is slightly wide-based with a sense of falling, although she had no loss of balance. She ambulated very well and just needed a hold onto nearby objects. She was evaluated by the Therapy Service and was found to have full strength, able to turn side-to-si de was independent, and sat at the edge of bed independently, and there was no ataxic gait noted. Th is is when the therapist evaluated the patient and the patient was recommended to be discharged witho ut an assistive device. Assessment: Ms. Carlton is a 59-year-old patient with likely benign paroxysmal positional vertigo. Sh ishan has no evidence of an acute stroke on MRI, she has small vessel ischemic disease. 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 Plan: Continue with aspirin, Plavix, folic acid, high-dose statin, and aggressive management of her hypertension. She may have the Terrance maneuver performed as needed. May continue meclizine 25 mg lesly ry 8 hours as needed, and she may be discharged home and follow up with Dr. Lawton once her nausea and v omiting is managed. LB/MODL Voice ID: [id number] Report ID: [id number]
--- NOTE | 2024-08-06 10:36 | RAD REPORT ---
EXAMINATION: CT ABDOMEN AND PELVIS WITH CONTRAST CLINICAL INDICATION: Abdominal pain TECHNIQUE: CT abdomen and pelvis was performed, after the administration of 100 cc Isovue-300.. Sagit rosa and coronal reconstructions were obtained. One or more of the following dose reduction techniques were used: Automated exposure control, adjustment of the mA and kV according to patient si ze, and iterative reconstruction. Unless otherwise specified, incidental findings do not require dedicated imaging follow-up. [id number]. Oral contrast was not given which limits evaluation of bowel and appendix. COMPARISON: .None FINDINGS: Multiple gallstones. Gallbladder wall thickened. Stranding within the adjacent fat. The bladder is di stended. Trace amount of free fluid. Liver, spleen, pancreas, adrenals and kidneys appear unremarkable No evidence of diverticulitis. The appendix is upper limits normal caliber. No stranding within the adjacent fat. Mild diastases rectus abdominis muscles with small hernia. No adnexal mass : IMPRESSION: Cholelithiasis with cholecystitis
[2024-08-06] MEDS: NA CHLORIDE 0.9% 1,000 ML IV SCH (11:39)
[2024-08-06] MEDS: PIPER TAZO 3.375 GM in NA CHLORIDE 0.9% 100 ML IV SCH (11:39)
[2024-08-06] MEDS: HYDROMORPHONE HCL 0.5 MG/0.5 ML INJ IV PRN (11:39)
[2024-08-06 12:07] LABS: Hematocrit 37.6 % (36.0-45.0); Hemoglobin 12.9 g/dL (12.0-15.0); MCH 31.1 pg (27.0-35.0); MCHC 34.3 g/dL (32.0-36.0); MCV 90.5 fL (80-100); Platelets 211 thou/uL (152-406); RBC Red Blood Cell Count 4.15 M/uL (3.86-4.86); Red Cell Distribution Width 14.7 % (12.1-15.2)
[2024-08-06 12:21] LABS: Albumin 2.8 g/dL (3.4-5.0); Albumin/Globulin Ratio 0.7 (1.1-1.8); Anion Gap 9.8 mEq/L (5.0-15.0); Bilirubin Total 0.9 mg/dL (0.2-1.0); Globulin 4.2 g/dL (2.3-3.5); Potassium 3.8 mEq/L (3.5-5.1)
--- NOTE | 2024-08-06 13:36 | ECHO ---
HEIGHT: 5 ft 1 in WEIGHT: 210 lb 0 oz DATE OF STUDY: 08.05.[address]: Gianna Barnard NP 2-DIMENSIONAL: YES M.MODE: YES DOPPLER: YES COLOR FLOW: YES TDS: NO PORTABLE: YES DEFINITY: NO BUBBLE STUDY: NO DIAGNOSIS: DIZZINESS CARDIAC HISTORY: CATHERIZATION: SURGERY: PROSTHETIC VALVE: PACEMAKER: MEASUREMENTS (cm) DIASTOLIC (NORMALS) SYSTOLIC (NORMALS) IVSd 1.0 (0.6-1.2) LA Diam 3.6 (1.9-4.0) LVEF 65% LVIDd 4.2 (3.5-5.7) LVIDs 2.5 (2.0-3.5) %FS 41% LVPWd 1.0 (0.6-1.2) Ao Diam 2.7 (2.0-3.7) 2 DIMENSIONAL ASSESSMENT: RIGHT ATRIUM: NORMAL LEFT ATRIUM: NORMAL RIGHT VENTRICLE: NORMAL LEFT VENTRICLE: NORMAL TRICUSPID VALVE: NORMAL MITRAL VALVE: NORMAL PULMONIC VALVE: NORMAL AORTIC VALVE: NORMAL PERICARDIAL EFFUSION: NONE AORTIC ROOT: NORMAL LEFT VENTRICULAR WALL MOTION: NORMAL. DOPPLER/COLOR FLOW: NORMAL. COMMENTS: 1. NORMAL LEFT VENTRICULAR SYSTOLIC FUNCTION. EJECTION FRACTION 65%, NORMAL WALL MOTION. 2. NORMAL DIASTOLIC FUNCTION. TECHNOLOGIST: JOANNE BETTENCOURT
--- NOTE | 2024-08-06 14:13 | P.PN ---
Date of Service: 08/06/24 Subjective C/O abdominal pain this morning CT obtained shows acute cholecystitis ROS 10 point ROS as noted above, otherwise negative Physical Exam General: Alert and Oriented x3, NAD HEENT: Atraumatic, Normocephalic, PERRLA Neck: 2+ carotid pulse no bruit, JVD not distended Respiratory: Clear to auscultation bilaterally, Normal air movement Cardiovascular: Normal pulses, RRR, Normal S1 S2 Capillary refill: <2 Seconds Gastrointestinal: Normal bowel sounds, RUQ abd tenderness Musculoskeletal: No clubbing Integumentary: No breakdown Neurological: Normal speech, Normal tone, Other (NIHSS 0) Vitals Reviewed Problem list Acute Cholecystitis Late acute versus subacute Cerebrovascular Accident Dizziness likely vertigo HTN asthma Smoking abuse Assessment and Plan Acute Cholecystitis NPO, IV ABX General surgery to see today for cholecystectomy Late acute versus subacute Cerebrovascular Accident Dizziness likely vertigo -MRI brain w/wo contrast "No acute intracranial abnormality. No abnormal enhancement. Moderate bilateral, predominantly frontal lobe, white matter signal changes. These findings are nonspecific and represent a broad differential diagnosis but typically secondary to chronic small vessel ischemic changes in the patient of this age group." - PT consulted -Passed speech evaluation - risk profile: Hgb A1c 5.7, lipid panel triglycerides 77, cholesterol 192, LDL 113, HDL 64, TSH/Free T4 2.76/8.5 - Started aspirin, folic acid, atorvastatin - Meclizine 25 mg Q6hr HTN asthma -continue home medications Smoking abuse -Cessation education provided DVT ppx lovenox Full code LOS 48 hours
--- NOTE | 2024-08-06 16:31 | P.CNS ---
Date of Consult: 08/06/24 PC: I was asked to see this 59-year-old female in regards to her right upper quadrant abdominal pain. HPC: Patient was admitted to the hospital, had not been feeling well at home. She was complaining of some weakness and dizziness. She had an MRI scan which showed an area for which a neurology consult was sought, and she has been c leared. She also has on her CT scan evidence of acute on chronic cholecystitis with cholelithiasis. She still complains of pain in the right upper quadrant of her abdomen, going into her back. PSHx: Cervical cancer with routine chemotherapy brachytherapy but no actual abdominal surgeries Social Hx: No known allergies Sys R: No cough, wheeze, shortness of breath. No chest pain or palpitations. No urinary complaints O/E: Awake alert looks uncomfortable HEENT: No jaundice Chest: Chest movement equal bilaterally Abd: Large abdomen which shows tenderness in the right upper quadrant [place]: Intact Data: CT scan demonstrates both acute on chronic cholecystitis and cholelithiasis Impression: Acute on chronic cholecystitis, biliary colic Plan: I will taken the operating room for laparoscopic cholecystectomy with a cholangiogram. The risks of this procedure have been discussed. The possibility of bleeding, infection, injury to bile ducts blood vessels and intestines was described. The possible need for an open end or further surgeries and procedures was discussed. She understands and wants us to proceed.
[2024-08-06] MEDS: SUGAMMADEX SODIUM 200 MG/2 ML VIAL IV ONE (16:50)
[2024-08-06] MEDS: SUCCINYLCHOLINE 20 MG/ML (10 ML) IV ONE (16:50)
[2024-08-06] MEDS ORDERED: ONDANSETRON 4 MG/2 ML VIAL ONE (16:56)
[2024-08-06] MEDS ORDERED: propofoL 200 MG/20 ML VIAL IV ONE (16:56)
[2024-08-06] MEDS ORDERED: LIDOCAINE 2% MPF 5 ML VIAL ONE (16:56)
[2024-08-06] MEDS ORDERED: ROCURONIUM 50 MG/5 ML VIAL IV ONE ×2 (16:56→18:44)
[2024-08-06] MEDS ORDERED: FENTANYL CITR 100 MCG/2 ML ONE ×2 (16:56→19:21)
[2024-08-06] MEDS ORDERED: MIDAZOLAM HCL 2 MG/2 ML INJ ONE (16:57)
[2024-08-06] MEDS: Ringers Lactate 1,000 ML IV ONE ×2 (18:25→20:03)
[2024-08-06 20:33] VITALS: O2SAT 95
--- NOTE | 2024-08-06 21:19 | RAD REPORT ---
EXAM: Fluoroscopy use, Cholangiogram Oper-Xray Or HISTORY: Laparoscopic cholecystectomy COMPARISON: None FINDINGS: A total of 8 images were sent to PACS, during a fluoroscopically guided cholangiogram. No r adiologist was involved in protocoling or performance of the study, and no radiologist was present for the duration of the procedure. No interpretation of the saved images will be provided. Total fluoroscopy time: 0.3 minutes. IMPRESSION: Documentation of fluoroscopy use as above.
[2024-08-07 04:43] LABS: Hematocrit 33.2 % (36.0-45.0); Hemoglobin 11.3 g/dL (12.0-15.0); MCH 31.5 pg (27.0-35.0); MCHC 34.1 g/dL (32.0-36.0); MCV 92.3 fL (80-100); Platelets 207 thou/uL (152-406); RBC Red Blood Cell Count 3.59 M/uL (3.86-4.86); Red Cell Distribution Width 14.9 % (12.1-15.2)
[2024-08-07 04:58] LABS: Albumin 2.3 g/dL (3.4-5.0); Albumin/Globulin Ratio 0.6 (1.1-1.8); Anion Gap 12.4 mEq/L (5.0-15.0); Bilirubin Total 0.8 mg/dL (0.2-1.0); Globulin 3.8 g/dL (2.3-3.5); Potassium 3.4 mEq/L (3.5-5.1); Protein, Total 6.1 g/dL (6.4-8.2)
[2024-08-07] MEDS: POTASSIUM CL SA 10 MEQ TAB PO ONE (09:57)
[2024-08-07] MEDS: HYDROCODONE/APAP 7.5/325 MG TAB PO PRN (09:58)
--- NOTE | 2024-08-07 12:41 | EKG ---
Test Date: 2024-08-04 Test Time: 07:32:23 Spear Fisher: JOHNATHON MEASUREMENT RESULTS: Intervals: Rate: 62 VT: 134 QRSD: 98 QT: 426 QTc: 432 [place]: P: 0 VT: 134 QRS: 39 T: 22 INTERPRETIVE STATEMENTS: Normal sinus rhythm Normal ECG Compared to ECG 10/02/2020 15:51:31 No significant changes Electronically Signed On 08-07-24 12:34:31 DERMATOLOGY PROCEDURAL PHYSICIAN by Franck Jung
[2024-08-07] MEDS: NA CHLORIDE 0.9% 500 ML IV ONE (14:06)
--- NOTE | 2024-08-07 15:37 | P.PN ---
Date of Service: 08/07/24 Subjective S/P lap horacio Pain improved Feeling better today ROS 10 point ROS as noted above, otherwise negative Physical Exam General: Alert and Oriented x3, NAD HEENT: Atraumatic, Normocephalic, PERRLA Neck: 2+ carotid pulse no bruit, JVD not distended Respiratory: Clear to auscultation bilaterally, Normal air movement Cardiovascular: Normal pulses, RRR, Normal S1 S2 Capillary refill: <2 Seconds Gastrointestinal: Normal bowel sounds, RUQ abd tenderness, SLIME drain in place x1 Musculoskeletal: No clubbing Integumentary: No breakdown Neurological: Normal speech, Normal tone, Other (NIHSS 0) Vitals Reviewed Problem list Acute Cholecystitis S/P lap horacio 08/06 Late acute versus subacute Cerebrovascular Accident Dizziness likely vertigo HTN asthma Smoking abuse Assessment and Plan Acute Cholecystitis S/P lap horacio 08/[address] Doing well post op Late acute versus subacute Cerebrovascular Accident Dizziness likely vertigo -MRI brain w/wo contrast "No acute intracranial abnormality. No abnormal enhancement. Moderate bilateral, predominantly frontal lobe, white matter signal changes. These findings are nonspecific and represent a broad differential luisa gnosis but typically secondary to chronic small vessel ischemic changes in the patient of this age group." - PT consulted -Passed speech evaluation - risk profile: Hgb A1c 5.7, lipid panel triglycerides 77, cholesterol 192, LDL 113, HDL 64, TSH/Free T4 2.76/8.5 - Started aspirin, folic acid, atorvastatin - Meclizine 25 mg Q6hr HTN asthma -continue home medications Smoking abuse -Cessation education provided DVT ppx lovenox Full code LOS 48 hours
--- NOTE | 2024-08-07 18:08 | P.PN ---
Date of Service: 08/07/24 S: Patient feels a lot better than she did yesterday, has been up ambulating, tolerating a diet. Pain appears under control. O: Minimal amount out SLIME drain A: Stable status post laparoscopic cholecystectomy with intraoperative cholangiogram yesterday P: Patient is stable, has minimal drainage out today, drain may be removed tomor row, and the patient discharged. She will follow-up with me next Monday in my office. She is to call for an appointment.
[2024-08-07 18:12] LABS: C-ANCA Anti-Proteinase 3 <1.0 AI (<1.0)
[2024-08-07 20:07] LABS: Homocysteine 13.2 umol/L (<10.4)
[2024-08-08 05:03] LABS: Hematocrit 30.1 % (36.0-45.0); Hemoglobin 10.3 g/dL (12.0-15.0); MCH 31.6 pg (27.0-35.0); MCV 92.9 fL (80-100); MPV 7.9 fL (7.6-11.3); Platelets 206 thou/uL (152-406); RBC Red Blood Cell Count 3.24 M/uL (3.86-4.86); Red Cell Distribution Width 14.8 % (12.1-15.2)
[2024-08-08 05:27] LABS: Albumin 1.9 g/dL (3.4-5.0); Albumin/Globulin Ratio 0.5 (1.1-1.8); Anion Gap 9.5 mEq/L (5.0-15.0); Bilirubin Total 0.5 mg/dL (0.2-1.0); Globulin 3.7 g/dL (2.3-3.5); Magnesium 2.2 mg/dL (1.6-2.4); Phosphorus 1.8 mg/dL (2.5-4.9); Potassium 3.5 mEq/L (3.5-5.1); Protein, Total 5.6 g/dL (6.4-8.2)
[2024-08-08] MEDS: POTASS/SODIUM PHOSPHATE 1 PKT POWD.PACK PO SCH (11:12)
[2024-08-08] MEDS: POTASSIUM CL SA 10 MEQ TAB PO ONE (11:13)
[2024-08-08 12:26] VITALS: BP 136/73; TEMP 97.5
--- NOTE | 2024-08-08 13:56 | P.DS ---
Admission Date: 08/04/24 Discharge Date: 08/08/24 Disposition: ROUTINE DISCHARGE Discharge Condition: GOOD Reason for Admission: acute vs subacute CVA Brief History of Present Illness: Flora Carlton is a 59 year old female with pmhx HTN, asthma, cervical cancer, and smoking abuse who presents to the ED with dizziness. She reports intermittent dizziness causing the room to spin but does not happen all day or everyday. CT head reports late acute vs subacute CVA. she denies heart and stroke history. Laboratory evaluation significant for serum glucose 121, GFR 75, BUN 25. Initial vitals BP 160 / 95; Pulse 75; Resp 18; Temp 97.6(O); Pulse Ox 98% on R/A. NIHSS 0 CT Head reports "Eccentric left frontal lobe subcortical white matter hypoattenuation with differential to include late acute or subacute infarct, asymmetric white matter disease, or possibly (and less likely) vasogenic edema in the setting of an underlying lesion. Recommend further evaluation with MRI with and without contrast. No acute intracranial hemorrhage." CTA Head/Neck reports "No occlusion, aneurysm, or hemodynamically significant stenosis identified." CXR reports "No evidence of acute cardiopulmonary disease." Maylin will be admitted to hospitalist service for further evaluation and treatment of acute vs subacute CVA, Dr. Lawton consulted. Hospital Course: Problem list Acute Cholecystitis S/P lap horacio 08/06 Late acute versus subacute Cerebrovascular Accident Dizziness likely vertigo HTN asthma Smoking abuse Patient was initially admitted to the hospital for a suspected CVA. Ultimately she underwent MRI which did not show any stroke. She was suffering from some vertigo but began complaining of right upper quadrant abdominal pain CT of the abdomen pelvis was performed on 08/06 and identified acute cholecystitis. She underwent laparoscopic cholecystectomy on 08/06 and has done well postoperatively. SLIME drain to be removed on 08/08. Her other symptoms have also significantly improved she is working well with PT, ambulating in the room to the restroom, dizziness much improved. Patient is stable for discharge outpatient follow-up with her primary care doctor, neurology and general surgeryDr. Ware. Follow-up with your primary care doctor in 1 to 2 weeks Follow-up with Dr. Garciaal surgery in his clinic on Monday or Monday of next week Call Dr. Lawton's office for an appointment. You should continue your losartan/hydrochlorothiazide and albuterol, we will be sending new prescriptions for Plavix for 1 month, atorvastatin and you should take [id number] aspirin for the next 1 month. Additionally a short course of oral antibiotics will be sent to pharmacy. Vital Signs/Physical Exam: Temp Pulse Resp BP Pulse Ox 97.5 F 84 16 136/73 92 08/08/24 12:00 08/08/24 12:00 08/08/24 12:00 08/08/24 12:00 08/08/24 12:00 General: Alert, In no apparent distress, Oriented x3 HEENT: Atraumatic, PERRLA Neck: Supple, JVD not distended Respiratory: Clear to auscultation bilaterally, Normal air movement Cardiovascular: Regular rate/rhythm, Normal S1 S2 Gastrointestinal: Normal bowel sounds, No tenderness Musculoskeletal: No tenderness Integumentary: No rashes Neurological: Normal speech, Normal tone, Normal affect Laboratory Data at Discharge: WBC 7.40 thou/uL (4.3-10.9) 08/08/24 04:12 Hgb 10.3 g/dL (12.0-15.0) L D 08/08/24 04:12 Hct 30.1 % (36.0-45.0) L 08/08/24 04:12 Plt Count 206 thou/uL (152-406) 08/08/24 04:12 PT 10.5 SECONDS (9.4-12.5) 08/04/24 07:18 INR 1.00 08/04/24 07:18 APTT 29.2 SECONDS (24.3-36.9) 08/04/24 07:18 Sodium 141 mEq/L (136-145) D 08/08/24 04:12 Potassium 3.5 mEq/L (3.5-5.1) 08/08/24 04:12 BUN 17 mg/dL (7-18) 08/08/24 04:12 Creatinine 0.84 mg/dL (0.55-1.02) 08/08/24 04:12 Glucose 79 mg/dL (74-106) 08/08/24 04:12 Phosphorus 1.8 mg/dL (2.5-4.9) L 08/08/24 04:12 Magnesium 2.2 mg/dL (1.6-2.4) 08/08/24 04:12 Total Bilirubin 0.5 mg/dL (0.2-1.0) 08/08/24 04:12 AST 28 U/L (15-37) 08/08/24 04:12 ALT 34 U/L (13-56) 08/08/24 04:12 Alkaline Phosphatase 68 U/L (45-117) 08/08/24 04:12 Triglycerides 77 mg/dL (<150) 08/05/24 06:41 Cholesterol 192 mg/dL (<200) 08/05/24 06:41 HDL Cholesterol 64 mg/dL (40-60) H 08/05/24 06:41 Cholesterol/HDL Ratio 3.00 08/05/24 06:41 Lipase 14 U/L (13-75) 08/06/24 11:52 Home Medications: Albuterol Inhaler [Ventolin Inhaler*] 2 puff IH Q6H PRN #1 hfa.aer.ad 10/03/20 Losartan/Hydrochlorothiazide [Losartan-Hctz 50-12.5 mg Tab] 50 mg PO DAILY 08/04/24 Amox/Clavulanate [Augmentin 875-125 Tab] 875 mg PO BID 5 Days #10 tab 08/08/24 Aspirin [Aspirin EC] 81 mg PO DAILY #30 tab 08/08/24 Atorvastatin Calcium [Lipitor] 40 mg PO BEDTIME #30 tab 08/08/24 Clopidogrel Bisulfate [Plavix*] 75 mg PO DAILY #30 tab 08/08/24 New Medications: Aspirin [Aspirin EC] 81 mg PO DAILY #30 tab Amox/Clavulanate [Augmentin 875-125 Tab] 875 mg PO BID 5 Days #10 tab Atorvastatin Calcium [Lipitor] 40 mg PO BEDTIME #30 tab Clopidogrel Bisulfate [Plavix*] 75 mg PO DAILY #30 tab Physician Discharge Instructions: Patient was initially admitted to the hospital for a suspected CVA. Ultimately she underwent MRI which did not show any stroke. She was suffering from some vertigo but began complaining of right upper quadrant abdominal pain CT of the abdomen pelvis was performed on 08/06 and identified acute cholecystitis. She underwent laparoscopic cholecystectomy on 08/06 and has done well postoperatively. SLIME drain to be removed on 08/08. Her other symptoms have also significantly improved she is working well with PT, ambulating in the room to the restroom, dizziness much improved. Patient is stable for discharge outpatient follow-up with her primary care doctor, neurology and general surgeryDr. Ware. Follow-up with your primary care doctor in 1 to 2 weeks Follow-up with Dr. Garciaal surgery in his clinic on Monday or Monday of next week Call Dr. Lawton's office for an appointment. You should continue your losartan/hydrochlorothiazide and albuterol, we will be sending new prescriptions for Plavix for 1 month, atorvastatin and you should take [id number] aspirin for the next 1 month. Additionally a short course of oral antibiotics will be sent to pharmacy. Diet: Regular Activity: Fall precautions Followup: Markus Lawton MD [ASSOCIATE-ACTIVE - CAN ADMIT] - Lacho Ware MD [ACTIVE - CAN ADMIT] - 2-3 Days Rena Lee FNP [Primary Care Provider] - 1-2 Weeks Time spent managing pt's care (in minutes): 65
--- NOTE | 2024-08-13 12:47 | EKG ---
Test Date: 2024-08-05 Test Time: 13:37:09 Logging Engineer: KAVITA MEASUREMENT RESULTS: Intervals: Rate: 71 [place]: 164 QRSD: 76 QT: 408 QTc: 443 [place]: P: 75 [place]: 164 QRS: 62 T: 65 INTERPRETIVE STATEMENTS: Normal sinus rhythm Normal ECG Compared to ECG 08/04/2024 07:32:23 No significant changes Electronically Signed On 08-13-24 12:26:43 EQUIPMENT PROCESSER STORAGE by Franck Jung
== END 2024-08-08 15:35 | disposition home or self-care (01) | DRG 419 ==
LOC: ER 06:48 → ERHOLD 11:06 → 2ND 17:07
PROVIDERS: ADMIT Internal Medicine; ATTEND Hospitalist
PROC: 0FT44ZZ Resection of Gallbladder, Percutaneous Endoscopic Approach (ICD-10-PCS; principal; 2024-08-06 17:00)
DX: K80.00 Calculus of gallbladder with acute cholecystitis without obstruction (principal); H81.10 Benign paroxysmal vertigo, unspecified ear; I10 Essential (primary) hypertension; J45.909 Unspecified asthma, uncomplicated; F17.210 Nicotine dependence, cigarettes, uncomplicated; R42 Dizziness and giddiness; Z85.41 Personal history of malignant neoplasm of cervix uteri; Z79.899 Other long term (current) drug therapy
CPT/HCPCS: 36415; 70450; 70496; 70498; 70553; 71045; 74177; 74300; 80048; 80053; 80061; 80076; 81001; 82306; 82607; 83036; 83090; 83690; 83735; 84100; 84436; 84443; 84484; 85025; 85027; 85610; 85730; 86021; 87077; 87086; 87088; 87186; 88304; 92610; 93005; 93306; 94010; 96374; 96375; 97116; 97161; 99285; A9577; J1171; J1650; J2003; J2250; J2405; J2543; J2550; J2704; J3010; J7030; J7040; J7120; J8597; Q9967

== ENCOUNTER 2024-08-17 06:29 | Observation (INO) | payer OTHER ==
--- OUTSIDE RECORDS SUMMARY | 2024-08-17 06:32 | XMS REPORT | Continuity of Care Document ---
Author Name Unknown Address [address] [facility] [address] [place] [address] [facility] thconnect Address [address] [facility]. [address] [place] [address] Care Team Providers Care Welder Assistant Name Role Phone [phone] Primary Care Physician Unavailab le SYSTEM, PROVIDER NOT IN Attending Clinician Unav ailMONICA Sanchez Attending Clinician Unavailable ARMAND WATKINS Attending Clinician Unavailable MD DANIELLE Attending Clinician Unavailab le LAB90 Attending Clinician Unavailable PILO DE JESUS Attending Clinician Unavailable LUCY DE GUZMAN Attending Clinician Unavailable NICK MIXON Attending Clinician UnavailIRLANDA Hassan Attending Clinician Unavailable NT90 Attending Clinician Unavailable RAFAL VIDAL Attending Clinician Unava ilGAEL Browning Attending Clinician Claudia Ila Lombardi Attending Clinician Unavailab Kel Holt Attending Clinician Unavail able Vianey Louie Attending Clinician Unavailable ILA SCOTT Attending Clinician Unavailab le Physician, No Primary or Family Admitting Clinic mario Unavailable Payers Payer Name Policy Type Policy Number Effective Date Expirati on Date Source SILVER 5 [employer]VANCED POSTULANT 94 9 [id number] 2024 00:00:00 Problems Condition Name Condition Details [...] s DA Active U 04-04 00:00: 00 [facility] Social History Social Habit Start Date Stop [...] MG OR TB24 2023-07 00:00: 00 Yes [id number] 150mg QD Take 1 tablet (150 mg total) by mouth daily. Cece Campoa mala Losartan Potassium-H CTZ 100-12.5 MG oral Tablet 2023-07 00:00: 00 Yes [id number] 1{tbl} QD Take 1 tablet by mouth daily. Cece medeiros Albuterol HFA 108 (90 Base) MCG/ACT IN AERS 2023-07 00:00: 00 Yes [id number] 2{puff} Q.25D Inhale 2 puffs into the lungs every 6 hours as needed. Cece Campoa mala Losartan Potassium-H CTZ 100-12.5 MG oral Tablet 2023-07 0-30 00:00: 00 06-13 00:00 :00 No [id number] 1{tbl} QD Take 1 tablet by mouth daily. Cece Campoa mala Albuterol Sulfate 108 (90 Base) MCG/ACT inhalation AEROSOL POWDER, BREATH ACTIVATED 12-10 13:49: 19 Yes Inhale into the lungs Cece Campooswaldo medeiros Losartan Potassium 25 MG oral Tablet 6-03 00:00: 00 Yes [id number] 25mg QD Take 1 tablet (25 mg total) by mouth nightly as needed (for BP > 140/80). Cece medeiros Albuterol HFA 108 (90 Base) MCG/ACT IN [facility] 5-21 00:00: 00 Yes [id number] 2{puff} Q.25D Inhale 2 puffs into the lungs every 6 hours as needed. Cece medeiros Losartan Potassium-H CTZ 50-12.5 MG oral Tablet 4- 00:00: 00 Yes [id number] 1{tbl} Take 1 tablet by mouth daily. Cece medeiros Albuterol HFA 108 (90 Base) MCG/ACT IN [facility] 4- 00:00: 00 Yes [id number] 2{puff} Q.25D Inhale 2 puffs into the lungs every 6 hours as needed. Cece medeiros Albuterol HFA 108 (90 Base) MCG/ACT IN [facility] 2022-07 2- 00:00: 00 Yes [id number] 2{puff} Q.25D Inhale 2 puffs into the lungs every 6 hours as needed. Cece medeiros Pseudoeph-B romphen-DM 30-2-10 MG/5ML oral Syrup 2022-07 2- 00:00: 00 06-13 00:00 :00 No [id number] 10mL Q.25D Take 10 mL by mouth 4 times daily as needed. Cece medeiros Albuterol HFA 108 (90 Base) MCG/ACT IN [facility] 2022-07 0-30 00:00: 00 07-07 00:00 :00 No [id number] 2{puff} Q.25D Inhale 2 puffs into the lungs every 6 hours as needed. Cece medeiros Lisinopril 10 MG oral Tablet 2022-07 0-25 00:00: 00 11-05 00:00 :00 No [id number] 20mg TAKE 2 TABLETS BY MOUTH EVERY DAY Cece medeiros Naproxen 500 MG oral Tablet 2022-07 08:46: 50 Yes 500mg Take 1 tablet (500 mg total) by mouth. Cece medeiros Naproxen 500 MG oral Tablet 2022-07 00:00: 00 11-05 00:00 :00 No [id number] TAKE 1 TABLET BY MOUTH IN THE [...] :00 No 80mg Inject into the vein. Cece medeiros Magnesium Sulfate 20 GM/500ML intravenous Solution 03-14 00:00: 00 11-05 00:00 :00 No Inject into the vein. Cece medeiros Palonosetro n HCl 0.25 MG/2ML intravenous [...] POWDER, BREATH ACTIVATED 01-13 00:00: 00 Yes [id number] 1{puff} Inhale 1 puff into the lungs daily Cece medeiros Budesonide- Formoterol Fumarate (Symbicort) 80-4.5 MCG/ACT inhalation Aerosol 01-13 00:00: 00 11-05 00:00 :00 No [id number] 2{puff} Inhale 2 puffs into the lungs 2 times daily Cece medeiros Lisinopril 10 MG oral Tablet 01-09 00:00: 00 Yes [id number] TAKE 2 TABLETS BY MOUTH EVERY DAY Cece medeiros Bupropion HCL XL 150 MG OR TB24 01-09 00:00: 00 11-05 00:00 :00 No [id number] TAKE 1 TABLET BY MOUTH EVERY DAY Cece medeiros Trazodone HCl 50 MG oral Tablet 01-09 00:00: 00 11-05 00:00 :00 No [id number] TAKE 1 TABLET BY MOUTH EVERY DAY AT NIGHT Cece medeiros Albuterol HFA 108 (90 Base) MCG/ACT IN AERS 12-25 00:00: 00 Yes [id number] 2{puff} Q.25D Inhale 2 puffs into the lungs every 6 hours as needed Cece medeiros Chlorthalid one 50 MG oral Tablet 12-16 14:44: 35 12-16 00:00 :00 No 50mg Take 1 tablet (50 mg total) by mouth daily Cece medeiros Naproxen 500 MG oral Tablet 12-16 00:00: 00 11-05 00:00 :00 No [id number] 500mg Take 1 tablet (500 mg total) by mouth. Cece medeiros Chlorthalid one 50 MG oral Tablet 12-16 00:00: 00 11-05 00:00 :00 No [id number] 50mg Take 1 tablet (50 mg total) by mouth daily Cece medeiros Lisinopril 10 MG oral Tablet 12-16 00:00: 00 01-09 00:00 :00 No [id number] 20mg Take 2 tablets (20 mg total) by mouth daily Cece medeiros Bupropion HCL XL 150 MG OR TB24 12-16 00:00: 00 01-09 00:00 :00 No [id number] 150mg Take 1 tablet (150 mg total) by mouth daily Cece medeiros Trazodone HCl 50 MG oral Tablet 12-16 00:00: 00 01-09 00:00 :00 No [id number] 50mg Take 1 tablet (50 mg total) by mouth nightly Cece medeiros Propranolol HCl 10 MG oral Tablet 12-13 00:00: 00 12-16 00:00 :00 No [id number] TAKE 1 TABLET BY MOUTH 3 TIMES DAILY Cece medeiros Acetaminoph en-Codeine #3 300-30 MG oral Tablet 12-12 00:00: 00 Yes [id number] 1{tbl} Q.25D Take 1 tablet by mouth every 6 hours as needed FOR PAIN Cece medeiros Albuterol HFA 108 (90 Base) MCG/ACT IN AERS 12-09 00:00: 00 Yes [id number] 2{puff} Q.25D Inhale 2 puffs into the lungs every 6 hours as needed Cece medeiros Ibuprofen (MOTRIN) 800 MG oral Tablet 11-23 10:30: 14 11-23 00:00 :00 No 800mg Q.[id number] 3D Take 1 tablet (800 mg total) by mouth every 8 hours as needed Cece medeiros Chlorthalid one 50 MG oral Tablet 11-23 10:04: 20 Yes 50mg Take 1 tablet (50 mg total) by mouth daily Cece medeiros Albuterol HFA 108 (90 Base) MCG/ACT IN [facility] 11-22 00:00: 00 Yes [id number] 2{puff} Q.25D Inhale 2 puffs into the lungs every 6 hours as needed Cece medeiros Ibuprofen (MOTRIN) 800 MG oral Tablet 11-18 13:35: 14 Yes 800mg Q.[id number] 3D Take 1 tablet (800 mg total) by mouth every 8 hours as needed Cece medeiros Chlorthalid one 50 MG oral Tablet 11-18 13:35: 14 Yes 50mg Take 1 tablet (50 mg total) by mouth daily Cece medeiros Albuterol HFA 108 (90 Base) MCG/ACT IN [facility] 11-18 13:35: 14 Yes 2{puff} Q.25D Inhale 2 puffs into the lungs every 6 hours as needed Cece medeiros Propranolol HCl 10 MG oral Tablet 11-18 00:00: 00 Yes [id number] 10mg Take 1 tablet (10 mg total) by mouth 3 times daily Cece medeiros Naproxen 500 MG oral Tablet 11-18 00:00: 00 Yes [id number] 500mg Take 1 tablet (500 mg total) [...] Systolic blood pressure 2022-11-18 18:33:00 126 mm[Hg] Ceec Seybold - External Diastolic blood pressure 2022-11-18 [...] End Date/Time Encounter Type Admission Type Attending [facility] Care Department Encounter ID Source 2022-10-31 11:49:18 Outpatient SYSTEM, PROVIDER JASEN AGGARWAL [id number] MD Kenn archer 2024-08-02 00:00:00 2024-08-02 00:00:00 Outpatient GISSELLE MONICA ANDREW [id number] [facility] 2024-08-01 00:00:00 2024-08-01 00:00:00 Outpatient ARMAND WATKINS CECE ANDREW [id number] [facility] 2024-07-10 00:00:00 2024-07-10 00:00:00 Outpatient WATKINSARMAND BARRIENTOS CECE ANDREW [id number] [facility] 2024-06-18 00:00:00 2024-06-18 00:00:00 Outpatient MD CECE JONES [id number] [facility] 2024-06-14 16:15:00 2024-06-14 16:15:00 Outpatient VIKA ANDREW [id number] [facility] 2024-06-13 14:30:00 2024-06-13 14:30:00 Outpatient GLENNMala MONICA ANDREW [id number] [facility] 2024-06-04 00:00:00 2024-06-04 00:00:00 Outpatient WATKINSARMAND BARRIENTOS CECE ANDREW [id number] [facility] 2024-05-23 11:00:00 2024-05-23 11:00:00 Outpatient CECE ANDREW [id number] [facility] 2024-05-23 10:00:00 2024-05-23 10:00:00 Outpatient CECE ANDREW [id number] [facility] 2024-05-07 00:00:00 2024-05-07 00:00:00 Outpatient WATKINSARMAND BARRIENTOS CECE ANDREW [id number] [facility] 2024-05-07 00:00:00 2024-05-07 00:00:00 Outpatient MONICA PITTS [id number] [facility] 2024-05-01 00:00:00 2024-05-01 00:00:00 Outpatient CECE ANDREW [id number] [facility] 2024-04-30 00:00:00 2024-04-30 00:00:00 Outpatient PILO DE JESUS CECE ANDREW [id number] [facility] 2024-04-23 00:00:00 2024-04-23 00:00:00 Outpatient MONICA PITTS [id number] [facility] 2024-04-19 00:00:00 2024-04-19 00:00:00 Outpatient CECE ANDREW [id number] [facility] 2024-04-01 00:00:00 2024-04-01 00:00:00 Outpatient ARMAND WATKINS CECE ANDREW [id number] [facility] 2024-04-01 00:00:00 2024-04-01 00:00:00 Outpatient LUCY DE GUZMAN CECE ANDREW [id number] [facility] 2024-03-29 12:45:00 2024-03-29 12:45:00 Outpatient NICK MIXON CECE ANDREW [id number] [facility] 2024-03-29 00:00:00 2024-03-29 00:00:00 Outpatient IRLANDA LE [id number] [facility] 2024-03-21 00:00:00 2024-03-21 00:00:00 Outpatient MONICA PITTS [id number] [facility] 2024-03-04 15:40:00 2024-03-04 15:40:00 Outpatient CECE ANDREW [id number] [facility] 2024-03-01 00:00:00 2024-03-01 00:00:00 Outpatient MD CECE JONES [id number] [facility] 2024-02-23 16:00:00 2024-02-23 16:00:00 Outpatient NTJosué ANDREW [id number] [facility] 2024-02-23 00:00:00 2024-02-23 00:00:00 Outpatient MONICA PITTS [id number] [facility] 2024-02-15 00:00:00 2024-02-15 00:00:00 Outpatient IRLANDA LE [id number] [facility] 2024-01-24 00:00:00 2024-01-24 00:00:00 Outpatient ROLANDARMAND CECE ANDREW [id number] [facility] 2024-01-17 00:00:00 2024-01-17 00:00:00 Outpatient CECE ANDREW [id number] [facility] 2024-01-04 00:00:00 2024-01-04 00:00:00 Outpatient GLENNMala, MONICA ANDREW [id number] [facility] 2023-12-18 15:30:00 2023-12-18 15:30:00 Outpatient ORALNICK CECE ANDREW [id number] [facility] 2023-12-11 14:00:00 2023-12-11 14:00:00 Outpatient GLENNMala MONICA ANDREW [id number] [facility] 2023-12-11 00:00:00 2023-12-11 00:00:00 Outpatient CECE ANDREW [id number] [facility] 2023-11-28 00:00:00 2023-11-28 00:00:00 Outpatient ROLANDARMAND CECE ANDREW [id number] [facility] 2023-11-07 10:00:00 2023-11-07 10:00:00 Outpatient RAFAL VIDAL [id number] [facility] 2023-11-06 13:45:00 2023-11-06 13:45:00 Outpatient RAFAL VIDAL [id number] [facility] 2023-11-02 00:00:00 2023-11-02 00:00:00 Outpatient ROLAND ARMAND CECE ANDREW [id number] [facility] 2023-10-12 00:00:00 2023-10-12 00:00:00 Outpatient CECE ANDREW [id number] [facility] 2023-10-09 12:45:00 2023-10-09 12:45:00 Outpatient LAB90 CECE ANDREW [id number] [facility] 2023-10-09 00:00:00 2023-10-09 00:00:00 Outpatient IRLANDA LE CECE ANDREW [id number] [facility] 2023-09-21 00:00:00 2023-09-21 00:00:00 Outpatient ARMAND WATKINS CECE ANDREW [id number] [facility] 2023-08-04 10:00:00 2023-08-04 10:00:00 Outpatient CECE ANDREW [id number] [facility] 2023-08-04 09:00:00 2023-08-04 09:00:00 Outpatient CECE ANDREW [id number] [facility] 2023-07-28 10:00:00 2023-07-28 10:00:00 Outpatient CECE ANDREW [id number] [facility] 2023-07-28 09:00:00 2023-07-28 09:00:00 Outpatient CECE ANDREW [id number] [facility] 2023-07-07 08:45:00 2023-07-07 08:45:00 Outpatient ARMAND WATKINS CECE ANDREW [id number] [facility] 2023-05-08 00:00:00 2023-05-08 00:00:00 Outpatient IRLANDA LE CECE ANDREW [id number] [facility] 2023-05-05 00:00:00 2023-05-05 00:00:00 Outpatient CECE ANDREW [id number] [facility] 2023-05-04 00:00:00 2023-05-04 00:00:00 Outpatient GAEL QUINTERO [id number] [facility] 2023-05-03 00:00:00 2023-05-03 00:00:00 Outpatient MONICA PITTS [id number] [facility] 2023-04-30 00:00:00 2023-04-30 00:00:00 Outpatient MONICA PITTS [id number] [facility] 2023-04-14 09:00:00 2023-04-14 09:00:00 Outpatient MONICA PITTS [id number] [facility] 2023-04-07 00:00:00 2023-04-07 00:00:00 Outpatient GLENNMala MONICA ANDREW [id number] [facility] 2023-04-06 06:47:00 2023-04-06 06:47:00 Outpatient Ila Miner HCACL DAYS [id number] 42 [facility] 2023-04-04 16:58:00 2023-04-04 16:58:00 Outpatient Kel Hassan HCACL RMRI [id number] 60 [facility] 2023-04-04 00:00:00 2023-04-04 00:00:00 Outpatient REYIRLANDA [id number] [facility] 2023-03-09 00:00:00 2023-03-09 00:00:00 Outpatient MONICA PITTS [id number] [facility] 2023-03-02 00:00:00 2023-03-02 00:00:00 Outpatient MONICA PITTS [id number] [facility] 2023-02-10 08:04:00 2023-02-10 08:04:00 Outpatient Vianey Henley HCACL ADMI [id number] 44 [facility] 2023-02-06 13:40:00 2023-02-06 13:40:00 Outpatient LAB90 CECE ANDREW [id number] [facility] 2023-02-04 00:00:00 2023-02-04 00:00:00 Outpatient MONICA PITTS [id number] [facility] 2023-02-02 00:00:00 2023-02-02 00:00:00 Outpatient CECE ANDREW [id number] [facility] 2023-02-02 00:00:00 2023-02-02 00:00:00 Outpatient MONICA PITTS [id number] [facility] 2023-02-01 00:00:00 2023-02-01 00:00:00 Outpatient MONICA PITTS [id number] [facility] 2023-01-26 00:00:00 2023-01-26 00:00:00 Outpatient CECE CECE [id number] [facility] 2023-01-26 00:00:00 2023-01-26 00:00:00 Outpatient CECE CECE [id number] [facility] 2023-01-20 12:00:00 2023-01-20 12:00:00 Outpatient CECEROSALINA ANDREW [id number] [facility] 2023-01-20 11:00:00 2023-01-20 11:00:00 Outpatient CECE CECE [id number] [facility] 2023-01-20 00:00:00 2023-01-20 00:00:00 Outpatient ERI LEMOS GAELTOMMY ANDREW [id number] [facility] 2023-01-19 12:00:00 2023-01-19 12:00:00 Outpatient CECE ANDREW [id number] [facility] 2023-01-19 11:00:00 2023-01-19 11:00:00 Outpatient CECE ANDREW [id number] [facility] 2023-01-19 00:00:00 2023-01-19 00:00:00 Outpatient IRLANDA LE [id number] [facility] 2023-01-19 00:00:00 2023-01-19 00:00:00 Outpatient CECE ANDREW [id number] [facility] 2023-01-16 00:00:00 2023-01-16 00:00:00 Outpatient MONICA PITTS [id number] [facility] 2023-01-16 00:00:00 2023-01-16 00:00:00 Outpatient MONICA PITTS [id number] [facility] 2023-01-13 09:45:00 2023-01-13 09:45:00 Outpatient VIKA ANDREW [id number] [facility] 2023-01-13 09:00:00 2023-01-13 09:00:00 Outpatient MONICA PITTS [id number] [facility] 2023-01-13 00:00:00 2023-01-13 00:00:00 Outpatient IRLANDA LE CECE ANDREW [id number] [facility] 2023-01-13 00:00:00 2023-01-13 00:00:00 Outpatient IRLANDA LE CECE ANDREW [id number] [facility] 2023-01-07 00:00:00 2023-01-07 00:00:00 Outpatient MONICA PITTS CECE ANDREW [id number] [facility] 2023-01-07 00:00:00 2023-01-07 00:00:00 Outpatient GISSELLE MONICA ANDREW [id number] [facility] 2023-01-06 00:00:00 2023-01-06 00:00:00 Outpatient CECE ANDREW [id number] [facility] 2023-01-06 00:00:00 2023-01-06 00:00:00 [id number] [facility]05 00:00:00 2023-01-05 00:00:00 Outpatient ERI ENDGAEL CECE ANDREW [id number] [facility] 2023-01-05 00:00:00 2023-01-05 00:00:00 Outpatient HIPOLITO-SUZY END, GAEL CECE ANDREW [id number] [facility] 2023-01-04 00:00:00 2023-01-04 00:00:00 Outpatient GISSELLE MONICA ANDREW [id number] [facility] 2022-12-30 14:00:00 2022-12-30 14:00:00 Outpatient GISSELLE MONICA ANDREW [id number] [facility] 2022-12-28 00:00:00 2022-12-28 00:00:00 Outpatient CECE ANDREW [id number] [facility] 2022-12-26 00:00:00 2022-12-26 00:00:00 Outpatient SONIA ILALorraine ANDREW [id number] [facility] 2022-12-26 00:00:00 2022-12-26 00:00:00 Outpatient PUSMARYBETHNIK, ILA CCEE ANDREW [id number] [facility] 2022-12-16 14:30:00 2022-12-16 14:30:00 Outpatient HUNDMala, MONICA ANDREW [id number] [facility] 2022-12-15 00:00:00 2022-12-15 00:00:00 Outpatient HUNDL, MONICA ANDRWE [id number] [facility] 2022-12-10 00:00:00 2022-12-10 00:00:00 Outpatient HUNDMala, MONICA ANDREW [id number] [facility] 2022-12-09 00:00:00 2022-12-09 00:00:00 Outpatient HUNDMala, MONICA ANDREW [id number] [facility] 2022-12-06 00:00:00 2022-12-06 00:00:00 Outpatient MD CECE JONES [id number] [facility] 2022-12-01 00:00:00 2022-12-01 00:00:00 Outpatient CECE ANDREW [id number] [facility] 2022-11-23 10:15:00 2022-11-23 10:15:00 Outpatient HIPOLITOGAEL JEFF [id number] [facility] 2022-11-23 10:15:00 2022-11-23 10:15:00 Outpatient GAEL QUINTERO [id number] [facility] 2022-11-22 00:00:00 2022-11-22 00:00:00 Outpatient MONICA PITTS [id number] [facility] 2022-11-21 00:00:00 2022-11-21 00:00:00 Outpatient MONICA PITTS [id number] [facility] 2022-11-21 00:00:00 2022-11-21 00:00:00 Outpatient MONICA PITTS [id number] [facility] 2022-11-18 14:00:00 2022-11-18 14:00:00 Outpatient MONICA PITTS [id number] [facility] 2022-10-25 14:22:19 2022-10-25 14:22:19 Outpatient [facility] [id number] Tenzin Benz Gal Results Test Description Test Time Test Comments Results Resul t Comments Source - MRI PELVIS W/O CON 2023-04-05 10:50:00 [facility] 1965 Sex: F FAX: Kel Brennan [phone] [place]: St: [facility] FAX: Ila Marcial [phone] Name: MAXIMRAJANRENE [facility] : 1965 Age/S: 57/F [address] [place] [address] Unit #: [id number] Loc: [place] [address] Phys: Kel Brennan MD Acct: [id number] Dis Date: Status: DEP CLI PHONE #: [phone] Exam Date: 04/04/20231746 FAX #: [phone] Reason: CERVICAL CANCER EXAMS: CPT CODE: [id number] MRI PELVIS W/O CON 97358 EXAM: - MRI PELVIS W/O CON INDICATION: [...] or cystic neoplasm. The patient is under technical support specialist care. Please refer to the findings section for additional details. at 1050 Reported and signed by: Osorio Schulz M.D. PAGE 1 Signed Report (CONTINUED) FAX: Kel Brennan [phone] [place]: St: [facility] FAX: Ila Marcial [phone] Name: RENE PAN [facility] [place] : 1965 Age/S: 57/F [address] [place] [address] Unit #: [id number] Loc: [place] [address] Phys: Kel Brennan MD Acct: [id number] Dis Date: Status: DEP CLI PHONE #: [phone] Exam Date: 04/04/2023 1747 FAX #: [phone] Reason: CERVICAL CANCER EXAMS: CPT CODE: [id number] MRI PELVIS W/O CON 05511 (Continued) CC: Kel Brennan MD; Ila Scott MD Technologist: RT Elly(R)(MR) Trnscrd Date/Time/By: 04/05/2023 (1050) : By: [email or web address] Orig Print D/T: S: 04/05/2023 (4039) PAGE 2 Signed Report BASIC METABOLIC [id number] 16:08:00* Test Item Value Reference Range Interpretation [...] CA) 8.4 mg/dL 8.0-10.5 N HCG SERUM [id number] 16:04:00* Test Item Value Reference Range Interpretation Comme nts HCG SERUM QUAL (test code = HCGQL) SERUM NEGATIVE NEGATIVE - XR CHEST 1 [id number] 00:00:00 [facility] 1965 Sex: F FAX: Y Vianey Louie MD [phone] [place]: St: DEP Name: RENE PAN [facility] : 1965 Age/S: 57/F [address] [place] [address] Unit #: [id number] Loc: [place] [address] Phys: Vianey Louie MD Acct: [id number] Dis Date: Status: DEP REF PHONE #: [phone] Exam Date: 02/10/2023 1022 FAX #: [phone] Reason: [facility] EXAMS: CPT CODE: [id number] XR CHEST 1 V 42997 PROCEDURE INFORMATION: Exam: XR Chest Exam date and time: 02/10/2023 10:00 AM Age: 57 years old Clinical indication: Pre-operative exam; Respiratory screening exam; Additional info: [facility] TECHNIQUE: Imaging protocol: Radiologic exam of the chest. Views: 1 view. COMPARISON: No relevant prior studies available. FINDINGS: Tubes, catheters and devices: Left chest port catheter is demonstrated. Catheter tip overlies the SVC region. Lungs: The lungs appear clear. Pleural spaces: No pleural effusion. No pneumothorax. Heart/Mediastinum: Mediastinum and art appear unremarkable. Bones/joints: No acute bony abnormality identified. Soft tissues: This study is limited by patient's body habitus. IMPRESSION: No evidence for acute abnormality identified in the chest. at 0858 Reported and signed by: Lorenzo Quintero M.D. CC: Vianey Louie MD Technologist: RT Marilu(Justice) Trnscrd Date/Time/By: 02/11/2023 (0858) : By: [email or web address] Orig Print D/T: S: 02/11/2023 (0859) PAGE 1 Signed ReportPAP TEST, THINPREP, IMAGED 2022-10-20 15:16:38* Test Item Value Reference Range Interpretation Comments SOURCE: (test code = 8001) Cervical/Endo cervical SLIDES: (test code = 8011) 2 LMP: (test code = 8021) AUGUST SPECIMEN ADEQUACY: (test code = 98485) (NOTE) Satisfactory for evaluation. Endocervical cells/transformation zone component not identified. INTERPRETATION: (test code = 06549) SQUAMOUS CARCINOMA; SEE BELOW A ----- EPITHELIAL [...] a copy to [facility]. Thank you. RESOURCING CONSULTANT: (test code = 8101) SABA Gibson( CP) IAC PATHOLOGIST INTERPRETATION BY: (test code = 8122) Alek Donnelly LOCATION: (test code = 43169) (NOTE) Specimens proces sed and interpreted at [facility], [address] [place] [address], , CLIA: [id number] CPT: (test code = 8140) (NOTE) 08813, 74028 UNL ESS OTHERWISE INDICATED, COMPUTER AIDED AND RESOURCING CONSULTANT SCREENING PERFORMED. The Pap test is a screening test with an inherent, but low probability of error. Your patient should be reminded to consult you immediately if she experiences any suspicious signs or symptoms, regardless of her Pap test result. An alternate report format containing images or consolidated prior Pap history is available as applicable. CT/NG, NAAT, [id number] 16:27:05* Test Item Value Reference Range Interpretation Comme nts CHLAMYDIA, NAAT, THINPREP (test code = 41311) NEGATIVE NEGATIVE A negative resul t does not exclude low level infection, specimensampling error, or collection error. Testing is performed with the [employer] 6800/8800 systems usingreal-time Polymerase Chain Reaction (PCR) method. GONORRHEA, NAAT, THINPREP (test code = 31760) NEGATIVE NEGATIVE A negative resul t does not exclude low level infection, specimensampling error, or collection error. Testing is performed with the [employer] 6800/8800 systems usingreal-time Polymerase Chain Reaction (PCR) method. HPV HIGH RISK WITH GENOTYPE, [id number] 15:35:13* Test Item Value Reference Range Interpretation Comme nts HPV HIGH RISK INTERP (test code = 35018) POSITIVE NEGATIVE A HPV 16 (test code = 95554) POSITIVE A HPV 18 (test code = 17988) NEGATIVE HPV, HR, OTHER GENOTYPES (test code = 80356) NEGATIVE Testing methodol ogy is real-time PCR utilizing hydrolysis probes with the [employer] 4800 system. The test individually detects genotypes 16 and 18, as well as the other 12 high risk types (31,33,35,39,45,51,52,56 ,58,59,66,68). The expected result is negative. A negative result does not rule out the presence of HPV not included in the genotype set, a low level of infection or specimen sampling error. [facility] has important pathology staff changes effective 09/07/2022. New pathology staff will provide uninterrupted, excellent patient care and clinical consultation. See URL: [email or web address]. UNLESS OTHERWISE INDICATED, ALL TESTING PERFORMED AT [facility] [address] [place] [address] SALES ASSISTANT INSTITUTIONAL SALES: AUSITN BELTRAN M.D. CLIA NUMBER [id number] [facility] [place]. [id number] HIV 1/2 4TH GEN, RFLX [id number] 05:05:09* Test Item Value Reference Range Interpretation Comme nts HIV 1/2 4TH GEN, RFLX CONF ( test code = 3514) NON-REACTIVE NON-REACTIVE HEPATITIS PANEL, [id number] 05:05:09* Test Item Value Reference Range Interpretation Comme nts HEPATITIS A IgM (test code = 91116) NON-REACTIVE NON-REACTIVE HEPATITIS B CORE IgM (test code = 4644) NON-REACTIVE NON-REACTIVE HEPATITIS B SURF AG (test code = 2739) NON-REACTIVE NON-REACTIVE HEPATITIS C ANTIBODY (test code = 4675) NON-REACTIVE NON-REACTIVE INTERPRETATION HEPATITIS A: (test code = 2552) (NOTE) Hepatitis A sero logy shows no evidence of acute hepatitis A. INTERPRETATION HEPATITIS B: (test code = 08624) (NOTE) Hepatitis B sero logy shows no evidence of acute hepatitis B andno indication of exposure to hepatitis B virus in the previous santi eight months. INTERPRETATION HEPATITIS C: (test code = 07753) (NOTE) Hepatitis C sero logy shows no evidence of exposure to hepatitisC virus at this time. It can take up to 12 months after exposure tothe hepatitis C virus for antibodies to become detectable in the blood in certain patients. [facility] has important pathology staff changes effective 09/07/2022. New pathology staff will provide uninterrupted, excellent patient care and clinical consultation. See URL: [email or web address]. UNLESS OTHERWISE INDICATED, ALL TESTING PERFORMED AT [facility] [address] [place] [address] SALES ASSISTANT INSTITUTIONAL SALES: AUSTIN BELTRAN M.D. CLIA NUMBER [id number] [facility] [place]. [id number] RPR REFLEX TO T. PALLIDUM - [id number] 04:33:20* Test Item Value Reference Range Interpretation Comme nts RPR (test code = 58323) NON-REACTIVE NON-REACTIVE RPR TITER (test code = 3500) NOT INDIC. TITER NOT INDIC. CULTURE, [id number] 11:36:32SPECIMEN NUMBER: [id number] CULTURE, URINE SPECIMEN NUMBER: [id number] SPECIMEN COMMENT: URINE SOURCE: URINE REPORT STATUS: FINAL FINAL REPORT: 09/01/2022 50-100,000 CFU/ML MIXED MICROBIAL POPULATION WV ESENT, NO PREDOMINATING ORGANISMS;PROBABLE CONTAMINANTS.CT/NG, NAAT, URINE 2022-08-31 19:34:15* Test Item Value Reference Range Interpretation Comme nts GONORRHEA, NAAT (test code = 24543) NEGATIVE NEGATIVE Testing is perfo rmed with Tom CRISTY 6800/8800 systems usingreal-time polymerase chain reaction (PCR) method. A negative result does not exclude low level infection, specimensampling error, or collection error. CHLAMYDIA, NAAT (test code = 34285) NEGATIVE NEGATIVE Testing is perfo rmed with Tom CRISTY 6800/8800 systems usingreal-time polymerase chain reaction (PCR) method. A negative result does not exclude low level infection, specimensampling error, or collection error. [id number] 05:00:49* Test Item Value Reference Range Interpretation [...] this result as normal/abnormal. FSH + LH [id number] 05:00:07* Test Item Value Reference Range Interpretation Comme [facility] FOLLICLE STIM HORMONE (test code = [...] LUTEAL PHASE 1.0-11.4 IU/L POSTMENOPAUSAL 7.7-58.5 IU/L [id number] 05:00:07* Test Item Value Reference Range Interpretation Comme [facility] PROLACTIN (test code = 2800) 4.4 NG/ML 5.0-37.0 L NOTE: Methodolog y is Tom Cristy Electrochemiluminescence Immunoassay (ECLIA). Values obtained with different assays/manufacturers cannot be used interchangeably. Results should not be used as sole basis to establish the presence or absence of malignancy. [id number] 05:00:07* Test Item Value Reference Range Interpretation Comme [facility] ESTRADIOL (test code = 2505) 19.9 [...] (CPL ORDER CODE 5678). METHODOLOGY IS TOM CRISTY ELECTROCHEMILUMINESCENT IMMUNOASSAY WITH A LIMIT OF DETECTION OF 17 PG/ML. RPR REFLEX TO T. PALLIDUM - [id number] 03:20:11* Test Item Value Reference Range Interpretation Comme nts RPR (test code = 95844) NON-REACTIVE NON-REACTIVE RPR TITER (test code = 3500) NOT INDIC. TITER NOT INDIC. CBC W/AUTO DIFF WITH [id number] 02:03:19* Test Item Value Reference Range Interpretation [...] 0.00-0.10 ABS NUCLEATED RBCS (test code = 74946) 0.00 K/UL 0.00-0.11 [facility] has important pathology staff changes effective 09/07/2022. New pathology staff will provide uninterrupted, excellent patient care and clinical consultation. See URL: [email or web address]. UNLESS OTHERWISE INDICATED, ALL TESTING PERFORMED AT [facility] [address] [place] [id number] SALES ASSISTANT INSTITUTIONAL SALES: FRANK GALVEZ M.D. [place] NUMBER [id number] [facility] [place]. [id number]
[2024-08-17 07:49] LABS: Absolute Basophils 0.1 K/uL (0-0.5); Absolute Eosinophils 0.3 K/uL (0-0.5); Absolute Lymphocytes (CBC) 0.7 K/uL (0.7-4.9); Absolute Monocytes 0.6 K/uL (0.1-1.3); Absolute Neutrophil 6.5 K/uL (1.8-8.0); Basophils % 0.8 % (0-1.3); Eosinophils % 3.5 % (0-4.4); Hematocrit 34.2 % (36.0-45.0); Hemoglobin 11.4 g/dL (12.0-15.0); Lymphocytes % 8.2 % (15.3-44.8); MCH 30.8 pg (27.0-35.0); MCHC 33.4 g/dL (32.0-36.0); MCV 92.1 fL (80-100); MPV 6.9 fL (7.6-11.3); Monocytes % 7.8 % (3.3-12.3); Neutrophils % 79.7 % (41.7-73.7); Nucleated Red Blood Cells % 0.1 % (0-0); Platelets 604 thou/uL (152-406); RBC Red Blood Cell Count 3.71 M/uL (3.86-4.86); Red Cell Distribution Width 14.7 % (12.1-15.2)
[2024-08-17 08:07] LABS: ALT/SGPT 25 U/L (13-56); Albumin 2.8 g/dL (3.4-5.0); Albumin/Globulin Ratio 0.6 (1.1-1.8); Alkaline Phosphatase 89 U/L (45-117); Anion Gap 8.3 mEq/L (5.0-15.0); BUN Blood Urea Nitrogen 23 mg/dL (7-18); Bicarbonate 28 mEq/L (21-32); Bilirubin Total 0.5 mg/dL (0.2-1.0); Globulin 4.8 g/dL (2.3-3.5); Glomerular Filtration Rate 67 ml/min (=/>90); Glucose Level 123 mg/dL (74-106); Lipase 32 U/L (13-75); Potassium 3.3 mEq/L (3.5-5.1); Protein, Total 7.6 g/dL (6.4-8.2); Sodium Level 136 mEq/L (136-145)
[2024-08-17 08:10] LABS: AST/SGOT < 10 U/L (15-37)
--- NOTE | 2024-08-17 08:55 | RAD REPORT ---
EXAMINATION: CT ABDOMEN AND PELVIS WITH CONTRAST CLINICAL INDICATION: Female, 59 years old.eval for abd wall fistula, recent sx, drainage TECHNIQUE: CT abdomen and pelvis was performed, after the administration of IV contrast, as per [facility] protocol. Axial, sagittal and coronal reconstructions were obtained. One or more of the following dose reduction techniques were used: Automated exposure control, adjustment of the mA and/o r kV according to patient size, and/or iterative reconstruction. Unless otherwise specified, incidental findings do not require dedicated imaging follow-up. [id number]. COMPARISON: 08/06/2024 FINDINGS: LOWER CHEST: No acute process identified.No significant pericardial effusion. Mild circumferential th ickening of the distal esophagus which could reflect esophagitis. UPPER GI: No significant abnormality. LIVER: No significant focal abnormality. GALLBLADDER/BILE DUCTS: Surgical changes from recent cholecystomy. Small volume of fluid at the gallb ladder fossa could represent a postoperative seroma. Biloma difficult to entirely exclude however. Correlate with LFTs. PANCREAS: No mass, ductal dilation, or hector-pancreatic fluid. SPLEEN: Unremarkable. ADRENALS: No adrenal masses. KIDNEYS AND URETERS: No hydronephrosis.No suspicious renal mass. Nonobstructing stone in the lower po le left kidney. ABDOMINAL AORTA AND OTHER VESSELS: Mild atherosclerotic changes. PERITONEUM: No abnormal free fluid. No free air. LYMPH NODES: No pathologic lymphadenopathy. ABDOMINAL WALL: Inflammatory changes and probable fluid collection in the right rectus sheath measuri ng 6 x 2.8 x 1.5 cm. There may be a tract extending from this collection to the umbilicus. The umbilicus is thickened as is the overlying skin. There is a segment of small bowel that comes into cl ose approximation to this collection but without convincing evidence of a fistula. SMALL BOWEL/COLON: Small bowel has normal course and caliber. No colonic wall thickening or pericolon ic inflammatory changes.Normal appendix. URINARY BLADDER: Underdistended but grossly unremarkable. REPRODUCTIVE ORGANS: No pathologic process. MUSCULOSKELETAL: No acute or suspicious osseous abnormality. ADDITIONAL FINDINGS: None. IMPRESSION: Enhancing fluid in the right rectus sheath with possible tract extending to the umbilicus and likely the source of drainage. This may represent a postoperative hematoma though the stability is indeterminant. A segment of small bowel comes into close approximation but without a convincing findi ngs to suggest a enterocutaneous fistula. A CT with oral contrast may be more definitive. Postoperative changes from recent cholecystectomy. Fluid at the gallbladder fossa probably represents a postoperative seroma though biloma not excluded. Correlate with LFTs.
--- NOTE | 2024-08-17 11:19 | RAD REPORT ---
EXAMINATION: CT ABDOMEN AND PELVIS WITHOUT CONTRAST CLINICAL INDICATION: Female, 59 years old.eval for fistula TECHNIQUE: CT abdomen and pelvis was performed, without IV contrast, as per department protocol. Axia l, sagittal and coronal reconstructions were obtained. One or more of the following dose reduction techniques were used: Automated exposure control, adjustment of the mA and/or kV according to the pat ient size, and/or iterative reconstruction. Unless otherwise specified, incidental findings do not require dedicated imaging follow-up. [id number]. IV CONTRAST: Not administered. COMPARISON: 2 hours prior FINDINGS: The lack of intravenous contrast limits the sensitivity of this exam for evaluation of solid visceral organs, vascular structures, and retroperitoneum. Reference CT of the abdomen with contrast from earlier in the day for additional findings. Enteric contrast was administered. The contrast reached the proximal sigmoid. The small bowel subjace nt to the right rectus sheath appears intact without evidence of enterocutaneous fistula. It is well opacified. No bowel obstruction. IMPRESSION: No evidence of enterocutaneous fistula. Reference CT report from earlier in the day for more detailed findings.
--- NOTE | 2024-08-17 11:34 | EDPHYS ---
Physician Documentation [facility] Name: Maylin Carlton Age: 59 yrs Sex: Female : 1965 Arrival Date: 08/17/2024 Time: 06:29 Bed 20 Private MD: ED Physician Stanford Portillo HPI: 08/17 07:11 This 59 yrs old Female presents to ER via Ambulatory with complaints of POST ec2 SURGICAL PROBLEM. 07:11 Patient arrives today for evaluation of her surgical site. States that the umbilicus ec2 site had some drainage and was saturated and wanted to be evaluated. Reports some general abdominal pain after her recent gallbladder surgery. Otherwise no fevers or chills, nausea or vomiting.Recently operated on by Dr. Ware. Historical: - Allergies: 07:02 NKA; ll1 - PMHx: 07:02 Asthma; cervical cancer; Hypertensive disorder; ll1 - Immunization history:: Adult Immunizations up to date. - Infectious Disease History:: Denies. - Social history:: Smoking status: Patient denies any tobacco usage or history of. ROS: 07:11 Constitutional: as per hpi ec2 Exam: 07:11 Constitutional: GEN: NAD Head: atraumatic Eyes: EOMI Ears: External ears are ec2 normal. CV: regular rate LUNGS: no respiratory distress ABD: non-distended, umbilical site with drainage, serous noted. No erythema, no warmth, no fluctuance SKIN: no evidence of rashes MSK: no evidence of trauma Vital Signs: 07:06 BP 133 / 79; Pulse 84; Resp 17; Pulse Ox 98% ; Pain 4/10; ll1 07:26 Temp 97.9; Weight 90.72 kg; Height 5 ft. 1 in. ; ll1 08:44 BP 135 / 76; Resp 17; ll1 09:36 BP 119 / 56; Pulse 72; Resp 17; Pulse Ox 98% on R/A; ll1 11:47 BP 114 / 50; Pulse 79; Resp 17; Pulse Ox 94% on R/A; ll1 13:27 BP 118 / 56; Pulse 80; Resp 18; Pulse Ox 100% on R/A; kj2 07:26 Body Mass Index 37.79 (90.72 kg, 154.94 cm) ll1 07:06 Pain Scale: Adult ll1 MDM: 07:03 Medical Screening Exam initiated ec2 07:12 Data reviewed:. Data reviewed: vital signs, nurses notes. ED course: Patient arrives ec2 today for evaluation of her surgical site wound with a recent cholecystectomy. Examination yields skin findings as above. Will obtain lab work and CT imaging. Differential diagnosis considered includes fistulous tract, infection.. 11:32 ED course: CT imaging shows rectus sheath hematoma, will admit the patient, have Dr. yogesh Ware evaluate. I did discuss case with Dr. Ware. Will treat the patient's pain and continue to manage.. 08/17 07:07 Order name: CBC with Diff; Complete Time: 08:12 ec2 08/17 07:07 Order name: CMP; Complete Time: 08:12 ec2 08/17 07:07 Order name: Lipase; Complete Time: 08:12 ec2 08/17 07:07 Order name: CT Abd/Pelvis - IV Contrast Only; Complete Time: 09:11 ec2 08/17 09:26 Order name: Abdomen ; Complete Time: 11:27 EDMS 08/17 12:41 Order name: CONS Physician Consult EDMS 08/17 07:07 Order name: IV Saline Lock; Complete Time: 07:14 ec2 08/17 07:07 Order name: Labs collected and sent; Complete Time: 07:14 ec2 Administered Medications: No medications were administered Disposition Summary: 08/17/24 11:33 Hospitalization Ordered Notes: Hospitalization Status: Inpatient Admission ec2 Provider: Ignacio Damon ec2 [facility] Condition: Stable ec2 Problem: new ec2 Symptoms: are unchanged ec2 Bed/Room Type: Standard ec2 Room Assignment: 408(08/17/24 13:38) eb Diagnosis - Rectus Sheath Hematoma ec2 Forms: - Medication Reconciliation Form ec2 - SBAR form ec2 - Leadership Thank You Letter ec2 Signatures: Dispatcher [employer] Maria M Rocha Lynsay, RN RN ll1 Stanford Portillo MD MD ec2 Corrections: (The following items were deleted from the chart) 07:07 07:07 Abdomen Pelvis W Con+CT.RAD.BRZ ordered. [facility] EDSC 07:12 07:11 Patient arrives today for evaluation of her surgical site. States that the ec2 umbilicus site had some drainage and was saturated and wanted to be evaluated. Reports some general abdominal pain after her recent gallbladder surgery. Otherwise no fevers or chills, nausea or vomiting.. ec2 09:26 09:12 Abdomen Pelvis W Con+CT.RAD.BRZ ordered. EDMS EDMS 12:42 11:33 ec2 eb 13:38 12:42 418 eb eb
--- NOTE | 2024-08-17 11:34 | ER ---
Nurse's Notes [facility] Name: Maylin Carlton Age: 59 yrs Sex: Female : 1965 Arrival Date: 08/17/2024 Time: 06:29 Bed 20 Private MD: Diagnosis: Rectus Sheath Hematoma Presentation: 08/17 07:05 Chief complaint: Patient states: Belly button started leaking fluid this morning. Had ll1 gallbladder removed 08/[address] Ware. Coronavirus screen: Client denies travel out of the [place] in the last 14 days. At this time, the client does not indicate any symptoms associated with coronavirus-19. Ebola Screen: Patient denies travel to an Ebola-affected area in the 21 days before illness onset. Initial Sepsis Screen: Does the patient meet any 2 criteria? No. Patient's initial sepsis screen is negative. Does the patient have a suspected source of infection? No. Patient's initial sepsis screen is negative. Risk Assessment: Do you want to hurt yourself or someone else? Patient reports no desire to harm self or others. Onset of symptoms was August 17, 2024. 07:05 Method Of Arrival: Ambulatory ll1 07:05 Acuity: JODI 3 ll1 Historical: - Allergies: 07:02 NKA; ll1 - PMHx: 07:02 Asthma; cervical cancer; Hypertensive disorder; ll1 - Immunization history:: Adult Immunizations up to date. - Infectious Disease History:: Denies. - Social history:: Smoking status: Patient denies any tobacco usage or history of. Screenin:47 [facility] ED Fall Risk Assessment (Adult) History of falling in the last 3 months, ll1 including since admission No falls in past 3 months (0 pts) Confusion or Disorientation No (0 pts) Intoxicated or Sedated No (0 pts) Impaired Gait No (0 pts) Mobility Assist Device Used No (0 pt) Altered Elimination No (0 pt) Score/Fall Risk Level 0 - 2 = Low Risk Maintained a safe environment, Hourly rounding (assess needs \T\ fall precautionary measures) done. Abuse screen: Denies threats or abuse. Nutritional screening: No deficits noted. Tuberculosis screening: No symptoms or risk factors identified. Assessment: 07:10 General: Appears in no apparent distress. Behavior is calm, cooperative, appropriate ll1 for age. Pain: Complains of pain in abdomen Pain currently is 4 out of 10 on a pain scale. Quality of pain is described as aching. GI: Reports lower abdominal pain, fluid leaking from belly button. Derm: Reports redness to umbilical area with drainage. 08:42 Reassessment: No changes from previously documented assessment. Patient and/or family ll1 updated on plan of care and expected duration. Pain level reassessed. 09:37 Reassessment: No changes from previously documented assessment. Patient and/or family ll1 updated on plan of care and expected duration. Pain level reassessed. 11:51 Reassessment: No changes from previously documented assessment. Patient and/or family ll1 updated on plan of care and expected duration. Pain level reassessed. Patient is alert, oriented x 3, equal unlabored respirations, skin warm/dry/pink. 12:00 Reassessment: Patient appears in no apparent distress at this time. Patient and/or kj2 family updated on plan of care and expected duration. Pain level reassessed. Patient is alert, oriented x 3, equal unlabored respirations, skin warm/dry/pink. 12:06 Reassessment: Patient and/or family updated on plan of care and expected duration. Pain ll1 level reassessed. BS report given to CRISTOBAL Michelle. 13:27 Reassessment: Patient appears in no apparent distress at this time. Patient and/or kj2 family updated on plan of care and expected duration. Pain level reassessed. Patient is alert, oriented x 3, equal unlabored respirations, skin warm/dry/pink. Vital Signs: 07:06 BP 133 / 79; Pulse 84; Resp 17; Pulse Ox 98% ; Pain 4/10; ll1 07:26 Temp 97.9; Weight 90.72 kg; Height 5 ft. 1 in. ; ll1 08:44 BP 135 / 76; Resp 17; ll1 09:36 BP 119 / 56; Pulse 72; Resp 17; Pulse Ox 98% on R/A; ll1 11:47 BP 114 / 50; Pulse 79; Resp 17; Pulse Ox 94% on R/A; ll1 13:27 BP 118 / 56; Pulse 80; Resp 18; Pulse Ox 100% on R/A; kj2 07:26 Body Mass Index 37.79 (90.72 kg, 154.94 cm) ll1 07:06 Pain Scale: Adult ll1 ED Course: 06:32 Patient arrived in ED. jj6 07:00 Stanford Portillo MD is Attending Physician. ec2 07:02 Arm band placed on Patient placed in an exam room, on a stretcher. ll1 07:06 Triage completed. ll1 07:15 Provided Education on: ER procedures and process. ll1 07:15 Initial lab(s) drawn, by me, sent to lab. Inserted saline lock: 22 gauge in right ll1 antecubital area, using aseptic technique. Blood collected. Flushed with 10 mL NS. 07:26 Stuart Camarillo, RN is Primary Nurse. ll1 07:48 Patient has correct armband on for positive identification. ll1 08:33 CT Abd/Pelvis - IV Contrast Only In Process Unspecified. EDMS 11:10 Abdomen In Process Unspecified. EDMS 11:33 Ignacio Damon MD is Hospitalizing Provider. ec2 11:52 No provider procedures requiring assistance completed. Patient admitted, IV remains in ll1 place. 12:00 Report received from CRISTOBAL Aguilar. kj2 Administered Medications: No medications were administered Medication: 07:47 VIS not applicable for this client. ll1 Outcome: 11:33 Decision to Hospitalize by Provider. ec2 11:52 Admitted to Med/surg ll1 11:52 Condition: stable 11:52 Instructed on the need for admit, 14:15 Patient left the ED. ph Signatures: Dispatcher [employer] Pastora Mason RN RN ph Stuart Camarillo, RN RN 1 Rosa Felix j6 Stanford Portillo MD MD ec2 Viviana Cabello RN RN kj2 Corrections: (The following items were deleted from the chart) 07:15 07:06 BP 133 / 79; Resp 17bpm; Pulse Ox 98%; Pain 4/10, Adult; ll1 ll1
--- NOTE | 2024-08-17 12:28 | P.HP ---
Certification for Inpatient Patient admitted to: Observation <Nyla Smith - Last Filed: 08/17/24 19:30> Patient History Date of Service: 08/17/24 History of Present Illness: 59 yrs old Female with past medical history of Asthma; cervical can cer; Hypertensive disorder presents to the emergency room with wound drainage. She had a recent gallbladder surgery with Dr Ware. She reports drainage worse today with mild erythema, tenderness around incision. She denies heavy lifting after surgery. 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 she denies fever, chills, NVD or weakness. Plan to admit for - Rectus Sheath Hematoma, cellulitis of abdomen s/p lab cholecystectomy with Dr. Dr Ware on 08/06. - Past Medical/Surgical History Diabetic: No -: Asthma -: Cervical cancer -: Hypertension -: Smoker - Social History Alcohol use: No CD- Drugs: No Caffeine use: No <Nyla Smith - Last Filed: 08/17/24 19:30> Date of Service: 08/17/24 Reason for admission: Rectus sheath hematoma status post lap cholecystectomy - Social History Smoking Status: Former smoker <Ignacio Damon - Last Filed: 08/18/24 13:25> Allergies No Known Allergies Allergy (Verified 10/03/20 01:56) Home Medications: Albuterol Inhaler [Ventolin Inhaler*] 2 puff IH Q6H PRN #1 hfa.aer.ad 10/03/20 Losartan/Hydrochlorothiazide [Losartan-Hctz 50-12.5 mg Tab] 50 mg PO DAILY 08/04/24 Aspirin [Aspirin EC] 81 mg PO DAILY #30 tab 08/08/24 Amox/Clavulanate [Augmentin 875-125 Tab] 1 each PO BID #14 tab 08/18/24 Hydrocodone 10/APAP 325 [[place] 10/325] 1 tab PO Q8H PRN #20 tab 08/18/24 Review of Systems 10-point ROS is otherwise unremarkable <Nyla Smith - Last Filed: 08/17/24 19:30> 10-point ROS is otherwise unremarkable <Ignacio Damon - Last Filed: 08/18/24 13:25> Physical Examination - Physical Exam General: Alert, In no apparent distress, Oriented x3 HEENT: Atraumatic, Normocephalic Neck: Supple, JVD not distended Respiratory: Clear to auscultation bilaterally, Normal air movement Cardiovascular: Normal pulses, Regular rate/rhythm, Normal S1 S2 Capillary refill: <2 Seconds Gastrointestinal: Normal bowel sounds, Other Musculoskeletal: No swelling, No contractures Integumentary: Other (Laparoscopic incision serosanguineous drainage, mild right erythema, covered with ABD pad, paper tape) Neurological: Normal speech, Normal strength at 5/5 x4 extr, Cranial nerves 3-12 intact - Studies Laboratory Data (last 24 hrs) 08/17/24 08/17/24 07:15 07:15 WBC 8.10 Hgb 11.4 L Hct 34.2 L Plt Count 604 H Sodium 136 Potassium 3.3 L BUN 23 H Creatinine 0.99 Glucose 123 H Total Bilirubin 0.5 AST < 10 L ALT 25 Alkaline Phosphatase 89 Lipase 32 <Nyla Smith - Last Filed: 08/17/24 19:30> - Vital Signs Temperature: 98 F Blood Pressure: 140/80 Pulse: 80 Respirations: 18 Pulse Ox (%): 95 - Physical Exam General: Alert, In no apparent distress, Oriented x3 HEENT: Atraumatic, PERRLA, Mucous membr. moist/pink, EOMI, Sclerae nonicteric Neck: Supple, 2+ carotid pulse no bruit, No LAD, Without JVD or thyroid abn ormality Respiratory: Clear to auscultation bilaterally, Normal air movement Cardiovascular: Regular rate/rhythm, Normal S1 S2 Gastrointestinal: Normal bowel sounds, Soft and benign, Non-distended, No tenderness, No rebound, No guarding Musculoskeletal: No tenderness Integumentary: No rashes Neurological: Normal gait, Normal speech, Normal strength at 5/5 x4 extr, Normal tone, Normal affect Lymphatics: No axilla or inguinal lymphadenopathy <Ignacio Damon - Last Filed: 08/18/24 13:25> Assessment and Plan - Problems (Diagnosis) (1) Abdominal wall cellulitis Current Visit: Yes Status: Acute (2) Rectus sheath hematoma Current Visit: Yes Status: Acute (3) S/P laparoscopic cholecystectomy Current Visit: Yes Status: Acute (4) Tobacco abuse Current Visit: Yes Status: Acute - Plan Assessment Abdominal wall cellulitis Rectus Sheath Hematoma Status post laparoscopic cholecystectomy Surgery to consult Dr. Ware notified of admission IV antibiotics, IV fluids, as needed analgesics, antiemetics, CT of the abdomen reviewed No leukocytosis, afebrile, No heavy lifting greater than 10 pounds after DC DC on antibiotics, follow-up with Dr. Ware after Discharge Discharge home with abdominal binder Hypokalemia Trend electrolytes replac, prn hyperglycemia A1C am Tobacco use Patient refused nicotine patch, educate on tobacco Obesity Asthma HX cervical cancer Hypertensive disorder Resume appropriate home meds Full code Diet diabetic DVT SCDs Disposition Home independent prior Discharge Plan: Home - Advance Directives Does patient have a Living Will: No Does patient have a Durable POA for Healthcare: No - Code Status/Comfort Care Code Status: Full Code Critical Care: No Time Spent Managing Pts Care (In Minutes): 55 <Nyla Smith - Last Filed: 08/17/24 19:30> - Problems (Diagnosis) (1) Rectus sheath hematoma Current Visit: Yes Status: Acute (2) S/P laparoscopic cholecystectomy Current Visit: Yes Status: Acute <Ignacio Damon - Last Filed: 08/18/24 13:25> Date of Service: 08/17/24 Patient was seen and examined. Events of the last 24 hours have been noted. Spoke with with TYLER regarding patient's clinical picture after evaluating and examining the patient independently. I performed a substantial part of the MDM during this patient's care today. I personally made or approved the documented management plan and acknowledge its risk of complications. I agree with the findings and documentation provided in the TYLER's notes. Patient admitted for rectus sheath hematoma status post laparoscopic cholecystectomy. Patient with some drainage from the incision from the laparoscopic cholecystectomy. Patient had a rectus sheath hematoma which is small. This should reabsorb. Patient will follow-up with general surgery in 1 week. <Ignacio Damon - Last Filed: 08/18/24 13:25>
[2024-08-17] MEDS ORDERED: MORPHINE 4 MG/ML SYR IV PRN (12:40)
[2024-08-17] MEDS ORDERED: ONDANSETRON 4 MG/2 ML VIAL IV PRN (12:40)
[2024-08-17] MEDS ORDERED: HYDROCODONE/APAP 5/325 MG TAB PO PRN (13:43)
[2024-08-17 15:24] VITALS: O2SAT 100
[2024-08-17 15:42] VITALS: BMI 37.8
[2024-08-17] MEDS: PNEUMOCOCCAL VACCINE 0.5 ML IMVAC ONE (16:00)
[2024-08-17] MEDS: NA CHLORIDE 0.9% 1,000 ML IV SCH (16:51)
[2024-08-17] MEDS: PIPER TAZO 3.375 GM in NA CHLORIDE 0.9% 100 ML IV SCH (16:51)
--- NOTE | 2024-08-17 18:26 | P.CNS ---
Date of Consult: 08/17/24 PC: I was asked to see this 59-year-old female in regards to some postop umbilical drainage. HPC: This patient, who is about 8 days status post laparoscopic cholecystectomy for acute on chronic cholecystitis with cholelithiasis noticed that she had an some drainage this morning out of her umbilicus. It was quite a large amount she said and it caused her anxiety. She presented to the emergency room for diagnosis and treatment. PSHx: Laparoscopic cholecystectomy with normal intraoperative cholangiogram PMHx: NAD Social Hx: No allergies Sys R: No cough, wheeze, shortness of breath. Denies any urinary symptoms. Has been eating well and having regular bowel movements. She was seen by me about 48 hours ago my office where we removed her aysha. O/E: Awake alert vital signs are stable HEENT: Not jaundiced Chest: Air entry equal bilaterally Abd: On inspection of the abdomen she has a bruise on the left lateral side of her abdomen which is old, an area of bruising on the right side of her abdomen consistent with the trocar sites that we use during her surgery. At the umbilicus there is a small opening on the suture line that is draining some serosanguineous fluid. There is no odor from this fluid at all. There is some mild redness just on the right side of the abdominal wall but we just pulled the dressing on with some tape and it may just be this localized skin changes. On palpation of the abdomen, it is soft, nontender, no guarding or rebound. I pressed on her abdominal wall and could not express any more of that fluid out, but her prior dressing from the emergency room did show the serosanguineous fluid there. [place]: Intact Data: CT scan demonstrates a rectus sheath hematoma, it is not a very organized collection, there is no enterocutaneous fistula seen. Impression: Rectus sheath hematoma status post laparoscopic cholecystectomy Plan: The patient was admitted at this time for observation and pain control. We will also give her some IV antibiotics tonight. She is comfortable, moving around, and I instructed her on localized wound care. She will get an abdominal binder. Most likely the patient will be discharged in the a.m. She will follow-up with the next at 10:00 in my office. The patient has my cell phone number should she have any questions or problems. Most likely she will be discharged on oral antibiotics. She understands this and is quite content with that course of treatment.
[2024-08-17] MEDS ORDERED: ALBUTEROL INHALER 200 PUFF/6.7 GM IH PRN (19:27)
[2024-08-17] MEDS: VANCOMYCIN 1 GM/VIAL ONE ×2 (20:12→20:14)
[2024-08-17] MEDS: NA CHLORIDE 0.9% 500 ML ONE (20:12)
[2024-08-17] MEDS: VANCOMYCIN 1.5 GM in NA CHLORIDE 0.9% 500 ML IVPB SCH (20:21)
[2024-08-18 06:54] LABS: Absolute Basophils 0.1 K/uL (0-0.5); Absolute Eosinophils 0.3 K/uL (0-0.5); Absolute Lymphocytes (CBC) 0.5 K/uL (0.7-4.9); Absolute Monocytes 0.7 K/uL (0.1-1.3); Absolute Neutrophil 6.1 K/uL (1.8-8.0); Basophils % 0.8 % (0-1.3); Eosinophils % 4.2 % (0-4.4); Hematocrit 31.9 % (36.0-45.0); Hemoglobin 11.1 g/dL (12.0-15.0); Lymphocytes % 6.5 % (15.3-44.8); MCH 31.6 pg (27.0-35.0); MCHC 34.8 g/dL (32.0-36.0); Monocytes % 8.9 % (3.3-12.3); Neutrophils % 79.6 % (41.7-73.7); Nucleated Red Blood Cells % 0.2 % (0-0); Platelets 531 thou/uL (152-406); RBC Red Blood Cell Count 3.51 M/uL (3.86-4.86); Red Cell Distribution Width 14.2 % (12.1-15.2)
[2024-08-18 07:03] LABS: Anion Gap 7.3 mEq/L (5.0-15.0); PT Prothrombin Time 11.8 SECONDS (9.4-12.5); Potassium 4.3 mEq/L (3.5-5.1); Protime INR 1.13
[2024-08-18] MEDS: ASPIRIN EC 81 MG TAB PO SCH (09:11)
[2024-08-18] MEDS: LOSARTAN/HCTZ 50-12.5 PO SCH (09:11)
[2024-08-18] MEDS: VANCOMYCIN 1.75 GM in NA CHLORIDE 0.9% 500 ML IVPB SCH (10:37)
[2024-08-18 13:25] VITALS: BP 140/80; TEMP 98
--- NOTE | 2024-08-18 13:27 | P.DS ---
Discharge Date: 08/18/24 Disposition: ROUTINE DISCHARGE Discharge Condition: GOOD Reason for Admission: Rectus sheath hematoma status post lap cholecystectomy - Problems (1) Rectus sheath hematoma Current Visit: Yes Status: Acute (2) S/P laparoscopic cholecystectomy Current Visit: Yes Status: Acute Brief History of Present Illness: Patient is a 59 yrs old Female with past medical history of Asthma; cervical cancer; Hypertensive disorder presents to the emergency room with wound drainage. She had a recent gallbladder surgery with Dr Ware. She reports drainage worse today with mild erythema, tenderness around incision. She denies heavy lifting after surgery. 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 she denies fever, chills, NVD or weakness. Plan to admit for - Rectus Sheath Hematoma, cellulitis of abdomen s/p lab cholecystectomy with Dr. Dr Ware on 08/06. Hospital Course: Has done well during hospital stay. Patient will continue with antibiotics and pain control. At this time, patient is doing well and stable for discharge with outpatient follow-up with general surgery. Patient was seen by Dr. Ware yesterday and she wants to see patient in 1 week. Vital Signs/Physical Exam: Temp Pulse Resp BP Pulse Ox 98 F 80 18 140/80 95 08/18/24 13:25 08/18/24 13:25 08/18/24 13:25 08/18/24 13:25 08/18/24 13:25 General: Alert, In no apparent distress, Oriented x3 Laboratory Data at Discharge: WBC 7.70 thou/uL (4.3-10.9) 08/18/24 06:15 Hgb 11.1 g/dL (12.0-15.0) L 08/18/24 06:15 Hct 31.9 % (36.0-45.0) L 08/18/24 06:15 Plt Count 531 thou/uL (152-406) H 08/18/24 06:15 PT 11.8 SECONDS (9.4-12.5) 08/18/24 06:15 INR 1.13 08/18/24 06:15 Sodium 141 mEq/L (136-145) D 08/18/24 06:15 Potassium 4.3 mEq/L (3.5-5.1) D 08/18/24 06:15 BUN 17 mg/dL (7-18) 08/18/24 06:15 Creatinine 1.02 mg/dL (0.55-1.02) 08/18/24 06:15 Glucose 121 mg/dL (74-106) H 08/18/24 06:15 Magnesium 2.0 mg/dL (1.6-2.4) 08/18/24 06:15 Total Bilirubin 0.5 mg/dL (0.2-1.0) 08/17/24 07:15 AST < 10 U/L (15-37) L 08/17/24 07:15 ALT 25 U/L (13-56) 08/17/24 07:15 Alkaline Phosphatase 89 U/L (45-117) 08/17/24 07:15 Lipase 32 U/L (13-75) 08/17/24 07:15 Home Medications: Albuterol Inhaler [Ventolin Inhaler*] 2 puff IH Q6H PRN #1 hfa.aer.ad 10/03/20 Losartan/Hydrochlorothiazide [Losartan-Hctz 50-12.5 mg Tab] 50 mg PO DAILY 08/04/24 Aspirin [Aspirin EC] 81 mg PO DAILY #30 tab 08/08/24 Amox/Clavulanate [Augmentin 875-125 Tab] 1 each PO BID #14 tab 08/18/24 Hydrocodone 10/APAP 325 [[place] 10/325] 1 tab PO Q8H PRN #20 tab 08/18/24 New Medications: Amox/Clavulanate [Augmentin 875-125 Tab] 1 each PO BID #14 tab Hydrocodone 10/APAP 325 [[place] 10/325] 1 tab PO Q8H PRN #20 tab PRN Reason: Pain Physician Discharge Instructions: -DC IV and DC home -Follow-up with PCP in 1 to 2 weeks -Follow-up with Surgery, Dr. Ware in 1 week -Please call Dr. Damon at [phone] if any questions regarding hospital stay -Please call nursing station at [phone] if any nursing or medication questions -Return to the emergency room if symptoms worsen Diet: Regular Activity: Fall precautions Followup: Lacho Ware MD [ACTIVE - CAN ADMIT] - Rena Lee FNP [Primary Care Provider] - Time spent managing pt's care (in minutes): 35
== END 2024-08-18 14:58 | disposition home or self-care (01) ==
LOC: ER 06:29 → ERHOLD 12:31 → INTOOBSV 12:31 → 4TH 13:43
PROVIDERS: ADMIT Hospitalist; ATTEND Hospitalist
DX: L03.311 Cellulitis of abdominal wall (principal); S30.1XXA Contusion of abdominal wall, initial encounter; I10 Essential (primary) hypertension; F17.210 Nicotine dependence, cigarettes, uncomplicated; E87.6 Hypokalemia; R73.9 Hyperglycemia, unspecified; Z85.41 Personal history of malignant neoplasm of cervix uteri; Z98.890 Other specified postprocedural states
CPT/HCPCS: 85025 ×2; 80048; 36415; 83735; 85610; 83036; 83690; 80053; 74176; 74177; 99285; Q9967; J2543 ×3; J7040 ×2; J7030 ×2; G0378

== ENCOUNTER 2024-10-27 07:42 | Emergency (ER) | payer OTHER, SELFPAY ==
--- OUTSIDE RECORDS SUMMARY | 2024-10-27 07:47 | XMS REPORT | Continuity of Care Document ---
Author Name Unknown Address [address] [place] [address] [facility] Address 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 Name Role Phone [phone] Primary Care Physician Unavailab le SYSTEM, PROVIDER NOT IN Attending Clinician Unav ailARMAND Bose Attending Clinician Unavailable IRLANDA LE Attending Clinician Unavailable MONICA PITTS Attending Clinician Unavailable MD DANIELLE Attending Clinician Unavailab le LAB90 Attending Clinician Unavailable PILO DE JESUS Attending Clinician Unavailable LUCY DE GUZMAN Attending Clinician Unavailable NICK MIXON Attending Clinician Unavailabl e NT90 Attending Clinician Unavailable RAFAL VIDAL Attending Clinician Unava ilGAEL Browning Attending Clinician Claudia Lola Lombardi Attending Clinician Unavailab Kel Holt Attending Clinician Unavail able Vianey Louie Attending Clinician Unavailable LOLA SCOTT Attending Clinician Unavailab le Physician, No Primary or Family Admitting Clinic mario Unavailable Payers Payer Name Policy Type Policy Number Effective Date Expirati on Date Source [employer] 94 9 [id number] 2024 00:00:00 Problems Condition Name Condition Details Condition Category Status Onset Date Resolution Date Last Treatment Date Treating Clinician Comments Source Primary hypertensi on Primary hypertensi on Disease Active 01-13 00:00: 00 Cece Guyold - Externa l Mild persistent asthma without complicati on (HHS-HCC) Mild persistent asthma without complicati on (HHS-HCC) Disease Active 01-13 00:00: 00 Cece Seybold - Externa l Malignant neoplasm of cervix (multi HCC) Malignant neoplasm of cervix (multi HCC) Disease Active 01-13 00:00: 00 Cece Guyold - Externa l Allergies, Adverse Reactions, Alerts Allergy Name Allergy Type Status Severity Reaction(s) Onset Date Inactive Date Treating Clinician Comments Source No Known Allergie s DA Active U 04-04 00:00: 00 [facility] Social History Social Habit Start Date Stop Date Quantity Comments Source History of tobacco use 1994-05-10 00:00:00 Cigarette Smoker Cece Sabillon - External Gender identity Saniya Sabillon - External Sexual orientation K elseclovis Sabillon - External ASSERTION Not Cece Sabillon [...] MG OR TB24 2023-07 00:00: 00 Yes [id number] 150mg QD Take 1 tablet (150 mg total) by mouth daily. Cece Campoa mala Losartan Potassium-H CTZ 100-12.5 MG oral Tablet 2023-07 00:00: 00 Yes [id number] 1{tbl} QD Take 1 tablet by mouth daily. Cece Campoa mala Albuterol HFA 108 (90 Base) MCG/ACT IN AERS 2023-07 00:00: 00 Yes [id number] 2{puff} Q.25D Inhale 2 puffs into the lungs every 6 hours as needed. Cece Campoa mala Losartan Potassium-H CTZ 100-12.5 MG oral Tablet 2023-07 0-30 00:00: 00 06-13 00:00 :00 No [id number] 1{tbl} QD Take 1 tablet by mouth daily. Cece Mcmullen Externa l Albuterol Sulfate 108 (90 Base) MCG/ACT inhalation AEROSOL POWDER, BREATH ACTIVATED 12-10 13:49: 19 Yes Inhale into the lungs Cece Mcmullen Externa mala Losartan Potassium 25 MG oral Tablet 6-03 00:00: 00 Yes [id number] 25mg QD Take 1 tablet (25 mg total) by mouth nightly as needed (for BP > 140/80). Cece medeiros Albuterol HFA 108 (90 Base) MCG/ACT IN [facility] 5-21 00:00: 00 Yes [id number] 2{puff} Q.25D Inhale 2 puffs into the lungs every 6 hours as needed. Cece medeiros Losartan Potassium-H CTZ 50-12.5 MG oral Tablet 4- 00:00: 00 Yes [id number] 1{tbl} Take 1 tablet by mouth daily. Cece medeiros Albuterol HFA 108 (90 Base) MCG/ACT IN [facility] 4- 00:00: 00 Yes [id number] 2{puff} Q.25D Inhale 2 puffs into the lungs every 6 hours as needed. Cece medeiros Albuterol HFA 108 (90 Base) MCG/ACT IN [facility] 2022-07 2- 00:00: 00 Yes [id number] 2{puff} Q.25D Inhale 2 puffs into the lungs every 6 hours as needed. Cece medeiros Pseudoeph-B romphen-DM 30-2-10 MG/5ML oral Syrup 2022-07 2- 00:00: 00 06-13 00:00 :00 No [id number] 10mL Q.25D Take 10 mL by mouth 4 times daily as needed. Cece medeiros Albuterol HFA 108 (90 Base) MCG/ACT IN [facility] 2022-07 0-30 00:00: 00 07-07 00:00 :00 No [id number] 2{puff} Q.25D Inhale 2 puffs into the lungs every 6 hours as needed. Cece medeiros Lisinopril 10 MG oral Tablet 2022-07 0-25 00:00: 00 11-05 00:00 :00 No [id number] 20mg TAKE 2 TABLETS BY MOUTH EVERY DAY Cece medeiros Naproxen 500 MG oral Tablet 2022-07 08:46: 50 Yes 500mg Take 1 tablet (500 mg total) by mouth. Cece medeiros Naproxen 500 MG oral Tablet 2022-07 00:00: 00 11-05 00:00 :00 No [id number] TAKE 1 TABLET BY MOUTH IN THE [...] POWDER, BREATH ACTIVATED 01-13 00:00: 00 Yes [id number] 1{puff} Inhale 1 puff into the lungs daily Cece medeiros Budesonide- Formoterol Fumarate (Symbicort) 80-4.5 MCG/ACT inhalation Aerosol 01-13 00:00: 00 11-05 00:00 :00 No [id number] 2{puff} Inhale 2 puffs into the lungs 2 times daily Cece medeiros Lisinopril 10 MG oral Tablet 01-09 00:00: 00 Yes [id number] TAKE 2 TABLETS BY MOUTH EVERY DAY Cece medeiros Bupropion HCL XL 150 MG OR TB24 01-09 00:00: 00 11-05 00:00 :00 No [id number] TAKE 1 TABLET BY MOUTH EVERY DAY Cece medeiros Trazodone HCl 50 MG oral Tablet 01-09 00:00: 00 11-05 00:00 :00 No [id number] TAKE 1 TABLET BY MOUTH EVERY DAY AT NIGHT Cece medeiros Albuterol HFA 108 (90 Base) MCG/ACT IN AERS 12-25 00:00: 00 Yes [id number] 2{puff} Q.25D Inhale 2 puffs into the lungs every 6 hours as needed Cece medeiros Chlorthalid one 50 MG oral Tablet 12-16 14:44: 35 12-16 00:00 :00 No 50mg Take 1 tablet (50 mg total) by mouth daily Cece medeiros Naproxen 500 MG oral Tablet 12-16 00:00: 00 11-05 00:00 :00 No [id number] 500mg Take 1 tablet (500 mg total) by mouth. Cece medeiros Chlorthalid one 50 MG oral Tablet 12-16 00:00: 00 11-05 00:00 :00 No [id number] 50mg Take 1 tablet (50 mg total) by mouth daily Cece medeiros Lisinopril 10 MG oral Tablet 12-16 00:00: 00 01-09 00:00 :00 No [id number] 20mg Take 2 tablets (20 mg total) by mouth daily Cece medeiros Bupropion HCL XL 150 MG OR TB24 12-16 00:00: 00 01-09 00:00 :00 No [id number] 150mg Take 1 tablet (150 mg total) by mouth daily Cece medeiros Trazodone HCl 50 MG oral Tablet 12-16 00:00: 00 01-09 00:00 :00 No [id number] 50mg Take 1 tablet (50 mg total) by mouth nightly Cece medeiros Propranolol HCl 10 MG oral Tablet 12-13 00:00: 00 12-16 00:00 :00 No [id number] TAKE 1 TABLET BY MOUTH 3 TIMES DAILY Cece medeiros Acetaminoph en-Codeine #3 300-30 MG oral Tablet 12-12 00:00: 00 Yes [id number] 1{tbl} Q.25D Take 1 tablet by mouth every 6 hours as needed FOR PAIN Cece medeiros Albuterol HFA 108 (90 Base) MCG/ACT IN AERS 12-09 00:00: 00 Yes [id number] 2{puff} Q.25D Inhale 2 puffs into the lungs every 6 hours as needed Cece medeiros Ibuprofen (MOTRIN) 800 MG oral Tablet 11-23 10:30: 14 11-23 00:00 :00 No 800mg Q.[id number] 3D Take 1 tablet (800 mg total) by mouth every 8 hours as needed Cece medeiros Chlorthalid one 50 MG oral Tablet 11-23 10:04: 20 Yes 50mg Take 1 tablet (50 mg total) by mouth daily Cece medeiros Albuterol HFA 108 (90 Base) MCG/ACT IN [facility] 11-22 00:00: 00 Yes [id number] 2{puff} Q.25D Inhale 2 puffs into the lungs every 6 hours as needed Cece medeiros Ibuprofen (MOTRIN) 800 MG oral Tablet 11-18 13:35: 14 Yes 800mg Q.[id number] 3D Take 1 tablet (800 mg total) by mouth every 8 hours as needed Cece medeiros Chlorthalid one 50 MG oral Tablet 11-18 13:35: 14 Yes 50mg Take 1 tablet (50 mg total) by mouth daily Cece medeiros Albuterol HFA 108 (90 Base) MCG/ACT IN [facility] 11-18 13:35: 14 Yes 2{puff} Q.25D Inhale 2 puffs into the lungs every 6 hours as needed Cece medeiros Propranolol HCl 10 MG oral Tablet 11-18 00:00: 00 Yes [id number] 10mg Take 1 tablet (10 mg total) by mouth 3 times daily Cece medeiros Naproxen 500 MG oral Tablet 11-18 00:00: 00 Yes [id number] 500mg Take 1 tablet (500 mg total) [...] End Date/Time Encounter Type Admission Type Attending [facility] Care Department Encounter ID Source 2022-10-31 11:49:18 Outpatient SYSTEM, PROVIDER [facility] JASEN [id number] MD Kenn archer 2024-10-23 00:00:00 2024-10-23 00:00:00 Outpatient WATKINS, ARMAND CECE ANDREW [id number] [facility] 2024-09-26 00:00:00 2024-09-26 00:00:00 Outpatient IRLANDA LE CECE ANDREW [id number] Cece Sey[facility] 2024-09-26 00:00:00 2024-09-26 00:00:00 Outpatient WATKINS, ARMAND CECE ANDREW [id number] Cece Seybold 2024-09-09 00:00:00 2024-09-09 00:00:00 Outpatient HUNDL, MONICA ANDREW [id number] Cece Seybold 2024-09-05 00:00:00 2024-09-05 00:00:00 Outpatient WATKINS, ARMANDMARY ANDREW [id number] Cece Seybold 2024-08-02 00:00:00 2024-08-02 00:00:00 Outpatient GLENNL, MONICA ANDREW [id number] [facility] 2024-08-01 00:00:00 2024-08-01 00:00:00 Outpatient WATKINS, ARMANDMARY ANDREW [id number] Cece Seybold 2024-07-10 00:00:00 2024-07-10 00:00:00 Outpatient WATKINS, ARMANDMARY ANDREW [id number] Cece Seybold 2024-06-18 00:00:00 2024-06-18 00:00:00 Outpatient MD CECE JONES [id number] Cece Seybold 2024-06-14 16:15:00 2024-06-14 16:15:00 Outpatient LAB90 CECE ANDREW [id number] Cece Seybold 2024-06-13 14:30:00 2024-06-13 14:30:00 Outpatient MONICA PITTS [id number] Cece Seybold 2024-06-04 00:00:00 2024-06-04 00:00:00 Outpatient WATKINS, ARMAND ANDREW [id number] Cece Seybold 2024-05-23 11:00:00 2024-05-23 11:00:00 Outpatient CECE ANDREW [id number] Cece Seybold 2024-05-23 10:00:00 2024-05-23 10:00:00 Outpatient CECE ANDREW [id number] Cece Seybold 2024-05-07 00:00:00 2024-05-07 00:00:00 Outpatient WATKINSARMAND BARRIENTOS CECE ANDREW [id number] [facility] 2024-05-07 00:00:00 2024-05-07 00:00:00 Outpatient MONICA PITTS [id number] [facility] 2024-05-01 00:00:00 2024-05-01 00:00:00 Outpatient CECE ANDREW [id number] [facility] 2024-04-30 00:00:00 2024-04-30 00:00:00 Outpatient PILO DE JESUS CECE ANDREW [id number] [facility] 2024-04-23 00:00:00 2024-04-23 00:00:00 Outpatient MONICA PITTS [id number] [facility] 2024-04-19 00:00:00 2024-04-19 00:00:00 Outpatient CECE ANDREW [id number] [facility] 2024-04-01 00:00:00 2024-04-01 00:00:00 Outpatient ARMAND WATKINS CECE ANDREW [id number] [facility] 2024-04-01 00:00:00 2024-04-01 00:00:00 Outpatient LUCY DE GUZMAN CECE ANDREW [id number] Cece Sey[facility] 2024-03-29 12:45:00 2024-03-29 12:45:00 Outpatient NICK MIXON [id number] [facility] 2024-03-29 00:00:00 2024-03-29 00:00:00 Outpatient PREZAIRLANDA Kessler [id number] Cece [facility] 2024-03-21 00:00:00 2024-03-21 00:00:00 Outpatient MONICA PITTS [id number] Cece [facility] 2024-03-04 15:40:00 2024-03-04 15:40:00 Outpatient CECE ANDREW [id number] [facility] 2024-03-01 00:00:00 2024-03-01 00:00:00 Outpatient MD CECE JONES [id number] Cece Seybold 2024-02-23 16:00:00 2024-02-23 16:00:00 Outpatient NT90 CECE ANDREW [id number] Cece [facility] 2024-02-23 00:00:00 2024-02-23 00:00:00 Outpatient MONICA PITTS [id number] Cece [facility] 2024-02-15 00:00:00 2024-02-15 00:00:00 Outpatient IRLANDA LE [id number] Cece [facility] 2024-01-24 00:00:00 2024-01-24 00:00:00 Outpatient ARMAND WATKINS [id number] Cece [facility] 2024-01-17 00:00:00 2024-01-17 00:00:00 Outpatient CECE ANDREW [id number] Cece [facility] 2024-01-04 00:00:00 2024-01-04 00:00:00 Outpatient MONICA PITTS [id number] Cece Seybold 2023-12-18 15:30:00 2023-12-18 15:30:00 Outpatient NICK MIXON [id number] Cece [facility] 2023-12-11 14:00:00 2023-12-11 14:00:00 Outpatient MONICA PITTS [id number] Cece [facility] 2023-12-11 00:00:00 2023-12-11 00:00:00 Outpatient CECE ANDREW [id number] Cece Seybold 2023-11-28 00:00:00 2023-11-28 00:00:00 Outpatient ARMAND WATKINS [id number] Cece [facility] 2023-11-07 10:00:00 2023-11-07 10:00:00 Outpatient RAFAL VIDAL CECE ANDREW [id number] Cece [facility] 2023-11-06 13:45:00 2023-11-06 13:45:00 Outpatient RAFAL VIDAL CECE ANDREW [id number] Cece Sey[facility] 2023-11-02 00:00:00 2023-11-02 00:00:00 Outpatient WATKINSARMAND RAMEY CECE ANDREW [id number] Cece [facility] 2023-10-12 00:00:00 2023-10-12 00:00:00 Outpatient CECE ANDREW [id number] Cece Sey[facility] 2023-10-09 12:45:00 2023-10-09 12:45:00 Outpatient VIKA CECE ANDREW [id number] Cece [facility] 2023-10-09 00:00:00 2023-10-09 00:00:00 Outpatient IRLANDA LE [id number] Cece [facility] 2023-09-21 00:00:00 2023-09-21 00:00:00 Outpatient ROLANDARMAND CECE ANDREW [id number] Cece [facility] 2023-08-04 10:00:00 2023-08-04 10:00:00 Outpatient CECE ANDREW [id number] Cece [facility] 2023-08-04 09:00:00 2023-08-04 09:00:00 Outpatient CECE ANDREW [id number] Cece Sey[facility] 2023-07-28 10:00:00 2023-07-28 10:00:00 Outpatient CECE ANDREW [id number] [facility]ce [facility] 2023-07-28 09:00:00 2023-07-28 09:00:00 Outpatient CECE ANDREW [id number] Cece [facility] 2023-07-07 08:45:00 2023-07-07 08:45:00 Outpatient ROLANDARMAND CECE ANDREW [id number] Cece [facility] 2023-05-08 00:00:00 2023-05-08 00:00:00 Outpatient MARIANNE LEAND CECE ANDREW [id number] [facility]ce [facility] 2023-05-05 00:00:00 2023-05-05 00:00:00 Outpatient CECE ANDREW [id number] [facility] 2023-05-04 00:00:00 2023-05-04 00:00:00 Outpatient GAEL QUINTERO CECE ANDREW [id number] [facility] 2023-05-03 00:00:00 2023-05-03 00:00:00 Outpatient GLENNMala, MONICA ANDREW [id number] [facility] 2023-04-30 00:00:00 2023-04-30 00:00:00 Outpatient GLENNMala, MONICA ANDREW [id number] [facility] 2023-04-14 09:00:00 2023-04-14 09:00:00 Outpatient GLENNMala, MONICA ANDREW [id number] [facility] 2023-04-07 00:00:00 2023-04-07 00:00:00 Outpatient MONICA PITTS [id number] [facility] 2023-04-06 06:47:00 2023-04-06 06:47:00 Outpatient Lola Miner HCACL DAYS [id number] [facility] 2023-04-04 16:58:00 2023-04-04 16:58:00 Outpatient Kel Hassan HCACL RMRI [id number] [facility] 2023-04-04 00:00:00 2023-04-04 00:00:00 Outpatient REY IRLANDA ANDREW [id number] [facility] 2023-03-09 00:00:00 2023-03-09 00:00:00 Outpatient GISSELLE MONICA ANDREW [id number] [facility] 2023-03-02 00:00:00 2023-03-02 00:00:00 Outpatient MONICA PITTS [id number] [facility] 2023-02-10 08:04:00 2023-02-10 08:04:00 Outpatient Vianey Henley HCACL ADMI [id number] 44 [facility] 2023-02-06 13:40:00 2023-02-06 13:40:00 Outpatient LAB90 CECE ANDREW [id number] [facility] 2023-02-04 00:00:00 2023-02-04 00:00:00 Outpatient MONICA PITTS CECE ANDREW [id number] [facility] 2023-02-02 00:00:00 2023-02-02 00:00:00 Outpatient CECE ANDREW [id number] [facility] 2023-02-02 00:00:00 2023-02-02 00:00:00 Outpatient GISSELLE MONICA CECE ANDREW [id number] [facility] 2023-02-01 00:00:00 2023-02-01 00:00:00 Outpatient GISSELLE MONICA CECE ANDREW [id number] [facility] 2023-01-26 00:00:00 2023-01-26 00:00:00 Outpatient CECE ANDREW [id number] [facility] 2023-01-26 00:00:00 2023-01-26 00:00:00 Outpatient CECE ANDREW [id number] [facility] 2023-01-20 12:00:00 2023-01-20 12:00:00 Outpatient CECE ANDREW [id number] [facility] 2023-01-20 11:00:00 2023-01-20 11:00:00 Outpatient CECE ANDREW [id number] [facility] 2023-01-20 00:00:00 2023-01-20 00:00:00 Outpatient ERI LEMOS GAEL CECE ANDREW [id number] [facility] 2023-01-19 12:00:00 2023-01-19 12:00:00 Outpatient CECE ANDREW [id number] [facility]ce [facility] 2023-01-19 11:00:00 2023-01-19 11:00:00 Outpatient CECE ANDREW [id number] [facility] 2023-01-19 00:00:00 2023-01-19 00:00:00 Outpatient IRLANDA LE [id number] [facility] 2023-01-19 00:00:00 2023-01-19 00:00:00 Outpatient CECE ANDREW [id number] [facility] 2023-01-16 00:00:00 2023-01-16 00:00:00 Outpatient GISSELLE MONICA CECE [facility]RE[facility] [id number] [facility] 2023-01-16 00:00:00 2023-01-16 00:00:00 Outpatient GISSELLE MONICA CECE ANDREW [id number] [facility] 2023-01-13 09:45:00 2023-01-13 09:45:00 Outpatient LAB90 CECE ANDREW [id number] [facility] 2023-01-13 09:00:00 2023-01-13 09:00:00 Outpatient GISSELLE MONICA ANDREW [id number] [facility] 2023-01-13 00:00:00 2023-01-13 00:00:00 Outpatient IRLANDA LE [facility] [id number] [facility] 00:00:00 2023-01-13 00:00:00 Outpatient IRLANDA LE CECE [facility]RE[facility] [id number] [facility] 2023-01-07 00:00:00 2023-01-07 00:00:00 Outpatient GISSELLE MONICA [facility] [id number] [facility] 2023-01-07 00:00:00 2023-01-07 00:00:00 Outpatient GISSELLE MONICA ANDREW [id number] [facility] 2023-01-06 00:00:00 2023-01-06 00:00:00 Outpatient CECE ANDREW [id number] [facility] 2023-01-06 00:00:00 2023-01-06 00:00:00 Outpatient CECE ANDREW [id number] [facility] 2023-01-05 00:00:00 2023-01-05 00:00:00 Outpatient GAEL QUINTERO [id number] [facility] 2023-01-05 00:00:00 2023-01-05 00:00:00 Outpatient HIPOLITOSUZY CANELOGAEL CECE ANDREW [id number] [facility]ce [facility] 2023-01-04 00:00:00 2023-01-04 00:00:00 Outpatient MONICA PITTS CECE ANDREW [id number] [facility] 2022-12-30 14:00:00 2022-12-30 14:00:00 Outpatient GLENNMala MONICA ANDREW [id number] [facility] 2022-12-28 00:00:00 2022-12-28 00:00:00 Outpatient CECE ANDREW [id number] [facility] 2022-12-26 00:00:00 2022-12-26 00:00:00 Outpatient STANMARYBETHLOLA VAZQUEZ CECE ANDERW [id number] [facility] 2022-12-26 00:00:00 2022-12-26 00:00:00 Outpatient STANMARYBETHGEORGE LOLALorraine ANDREW [id number] [facility] 2022-12-16 14:30:00 2022-12-16 14:30:00 Outpatient GISSELLE MONICA ANDREW [id number] [facility] 2022-12-15 00:00:00 2022-12-15 00:00:00 Outpatient GISSELLE MONICA ANDREW [id number] [facility] 2022-12-10 00:00:00 2022-12-10 00:00:00 Outpatient GISSELLE MONICA ANDREW [id number] [facility] 2022-12-09 00:00:00 2022-12-09 00:00:00 Outpatient GLENNMala MONICA ANDREW [id number] [facility] 2022-12-06 00:00:00 2022-12-06 00:00:00 Outpatient MD CECE JONES [id number] [facility] 2022-12-01 00:00:00 2022-12-01 00:00:00 Outpatient CECE ANDREW [id number] [facility] 2022-11-23 10:15:00 2022-11-23 10:15:00 Outpatient GEAL QUINTERO CECE [id number] [facility] 2022-11-23 10:15:00 2022-11-23 10:15:00 Outpatient GAEL QUINTERO CECE [id number] [facility] 2022-11-22 00:00:00 2022-11-22 00:00:00 Outpatient MONICA PITTS CECE [id number] [facility] 2022-11-21 00:00:00 2022-11-21 00:00:00 Outpatient MONICA PITTS CECE [id number] [facility] 2022-11-21 00:00:00 2022-11-21 00:00:00 Outpatient MONICA PITTS CECE [id number] [facility] 2022-11-18 14:00:00 2022-11-18 14:00:00 Outpatient MONICA PITTS CECE [id number] [facility] 2022-10-25 14:22:19 2022-10-25 14:22:19 Outpatient [facility] [id number] Tenzin Santo Results Test Description Test Time Test Comments Results Resul t Comments Source - MRI PELVIS W/O CON 2023-04-05 10:50:00 [facility] : 1965 Sex: F FAX: Kel Brennan [phone] [place]: St: DEP FAX: Lola Marcial [phone] Name: RENE PAN [facility] Samara Gonzalez : 1965 Age/S: 57/F [address] [place] [address] Unit #: [id number] Loc: [place] [address] Phys: Kel Brennan MD Acct: [id number] Dis Date: Status: DEP CLI PHONE #: [phone] Exam Date: 04/04/2023 1743 FAX #: [phone] Reason: CERVICAL CANCER EXAMS: CPT CODE: [id number] MRI PELVIS W/O CON 73157 EXAM: - MRI PELVIS W/O CON INDICATION: [...] or cystic neoplasm. The patient is under aviation medicine specialist care. Please refer to the findings section for additional details. at 1050 Reported and signed by: Osorio Schulz M.D. PAGE 1 Signed Report (CONTINUED) FAX: Kel Brennan [phone] [place]: St: [facility] FAX: Lola Marcial [phone] Name: RENE PAN [facility] : 1965 Age/S: 57/F [address] [place] [address] Unit #: [id number] Loc: [place] [address] Phys: Kel Brennan MD Acct: [id number] Dis Date: Status: [facility] PHONE #: [phone] Exam Date: 04/04/2023 1747 FAX #: [phone] Reason: CERVICAL CANCER EXAMS: CPT CODE: [id number] MRI PELVIS W/O CON [id number] (Continued) CC: Kel Brennan MD; Lola Scott MD Technologist: RT Elly(R)(MR) Trnscrd Date/Time/By: 04/05/2023 (1050) : By: [email or web address] Orig Print D/T: S: 04/05/2023 (0477) PAGE 2 Signed Report BASIC METABOLIC [id number] 16:08:00* Test Item Value Reference Range Interpretation [...] calculation forGFR is based on the CKD-EPI (202) calculation. This formulais race indifferent and is the recommended formula for GFRby the National Kidney Foundation for Adults.The GFR will not calculate if the sex is unknown or if thepatient's age is <18 years. CREATININE (test code = CREAT) 1.0 mg/dL 0.6-1.3 N CALCIUM (test code = CA) 8.4 mg/dL 8.0-10.5 N HCG SERUM [id number] 16:04:00* Test Item Value Reference Range Interpretation Comme nts HCG SERUM QUAL (test code = HCGQL) SERUM NEGATIVE NEGATIVE - XR CHEST 1 [id number] 00:00:00 [facility] : 1965 Sex: F FAX: Vianey Salinas MD [phone] [place]: St: DEP Name: RENE PAN [facility] Samara Gonzalez : 1965 Age/S: 57/F [address] [place] [address] Unit #: [id number] Loc: [place] [address] Phys: Vianey Louie MD Acct: [id number] Dis Date: Status: DEP REF PHONE #: [phone] Exam Date: 02/10/2023 1022 FAX #: [phone] Reason: [facility] EXAMS: CPT CODE: [id number] XR CHEST 1 V 78876 PROCEDURE INFORMATION: Exam: XR Chest Exam date and time: 02/10/2023 10:00 AM Age: 57 years old Clinical indication: Pre-operative exam; Respiratory screening exam; Additional info: [facility] TECHNIQUE: Imaging protocol: Radiologic exam of the [...] for acute abnormality identified in the chest. Electronically Signed by Gillian Quintero on 3at 0858 Reported and signed by: Lorenzo Quintero M.D. CC: Vianey Louie MD Technologist:RT Marilu(R) Trnscrd Date/Time/By: 02/11/2023 (857) : By: [email or web address] Orig Print D/T: S: 02/11/2023 (6880) PAGE 1 Signed ReportPAP TEST, THINPREP, [id number] 15:16:38* Test Item Value Reference Range Interpretation Comments SOURCE: (test code = 8001) Cervical/Endo cervical SLIDES: (test code = 8011) 2 LMP: (test code = 8021) AUGUST SPECIMEN ADEQUACY: (test code = 43499) (NOTE) Satisfactory for evaluation. Endocervical cells/transformation zone component not identified. INTERPRETATION: (test code = 34390) SQUAMOUS CARCINOMA; SEE BELOW A ----- EPITHELIAL [...] information isavailable, please forward a copy to [facility]. Thank you. PUMPER GAUGER: (test code = 8101) SABA Gibson( CP) [facility] PATHOLOGIST INTERPRETATION BY: (test code = 8122) Alek Donnelly LOCATION: (test code = 60490) (NOTE) Specimens proces sed and interpreted at [facility], [address] [place] [address], , CLIA: [id number] CPT: (test code = 8140) (NOTE) 14391, 82301 UNL ESS OTHERWISE INDICATED, COMPUTER AIDED AND PUMPER GAUGER SCREENING PERFORMED. The Pap test is a screening test with an inherent, but low probability of error. Your patient should be reminded to consult you immediately if she experiences any suspicious signs or symptoms, regardless of her Pap test result. An alternate report format containing images or consolidated prior Pap history is available as applicable. CT/NG, NAAT, [id number] 16:27:05* Test Item Value Reference Range Interpretation Comme nts CHLAMYDIA, NAAT, THINPREP (test code = 60866) NEGATIVE NEGATIVE A negative resul t does not exclude low level infection, specimensampling error, or collection error. Testing is performed with the [employer] 6800/8800 systems usingreal-time Polymerase Chain Reaction (PCR) method. GONORRHEA, NAAT, THINPREP (test code = 26515) NEGATIVE NEGATIVE A negative resul t does not exclude low level infection, specimensampling error, or collection error. Testing is performed with the [employer] 6800/8800 systems usingreal-time Polymerase Chain Reaction (PCR) method. HPV HIGH RISK WITH GENOTYPE, [id number] 15:35:13* Test Item Value Reference Range Interpretation Comme nts HPV HIGH RISK INTERP (test code = 80427) POSITIVE NEGATIVE A HPV 16 (test code = 84224) POSITIVE A HPV 18 (test code = 62413) NEGATIVE HPV, HR, OTHER GENOTYPES (test code = 73426) NEGATIVE Testing methodol ogy is real-time PCR [...] level of infection or specimen sampling error. [facility] has important pathology staff changes effective 09/07/2022. New pathology staff will provide uninterrupted, excellent patient care and clinical consultation. See URL: [email or web address]. UNLESS OTHERWISE INDICATED, ALL TESTING PERFORMED AT [facility] [address] [place] [id number] FINANCE SPECIALIST: AUSTIN BELTRAN M.D. CLIA NUMBER [id number] [facility] [place]. [id number] HIV 1/2 4TH GEN, RFLX [id number] 05:05:09* Test Item Value Reference Range Interpretation Comme nts HIV 1/2 4TH GEN, RFLX CONF ( test code = 3514) NON-REACTIVE NON-REACTIVE HEPATITIS PANEL, [id number] 05:05:09* Test Item Value Reference Range Interpretation Comme nts HEPATITIS A IgM (test code = 40084) NON-REACTIVE NON-REACTIVE HEPATITIS B CORE IgM (test code = 4644) NON-REACTIVE NON-REACTIVE HEPATITIS B SURF AG (test code = 2739) NON-REACTIVE NON-REACTIVE HEPATITIS C ANTIBODY (test code = 4675) NON-REACTIVE NON-REACTIVE INTERPRETATION HEPATITIS A: (test code = 2552) (NOTE) Hepatitis A sero logy shows no evidence of acute hepatitis A. INTERPRETATION HEPATITIS B: (test code = 54258) (NOTE) Hepatitis B sero logy shows no evidence of acute hepatitis B andno indication of exposure to hepatitis B virus in the previous santi eight months. INTERPRETATION HEPATITIS C: (test code = 91894) (NOTE) Hepatitis C sero logy shows no evidence of exposure to hepatitisC virus at this time. It can take up to 12 months after exposure tothe hepatitis C virus for antibodies to become detectable in the blood in certain patients. [facility] has important pathology staff changes effective 09/07/2022. New pathology staff will provide uninterrupted, excellent patient care and clinical consultation. See URL: [email or web address]. UNLESS OTHERWISE INDICATED, ALL TESTING PERFORMED AT [facility] [address] [place] [address] FINANCE SPECIALIST: AUSTIN BELTRAN M.D. CLIA NUMBER [id number] [facility] [place]. [id number] RPR REFLEX TO T. PALLIDUM - [id number] 04:33:20* Test Item Value Reference Range Interpretation Comme nts RPR (test code = 36972) NON-REACTIVE NON-REACTIVE RPR TITER (test code = 3500) NOT INDIC. TITER NOT INDIC. CULTURE, [id number] 11:36:32SPECIMEN NUMBER: [id number] CULTURE, URINE SPECIMEN NUMBER: [id number] SPECIMEN COMMENT: URINE SOURCE: URINE REPORT STATUS: FINAL FINAL REPORT: 09/01/2022 50-100,000 CFU/ML MIXED MICROBIAL POPULATION RI ESENT, NO PREDOMINATING ORGANISMS;PROBABLE CONTAMINANTS.CT/NG, NAAT, URINE 2022-08-31 19:34:15* Test Item Value Reference Range Interpretation Comme nts GONORRHEA, NAAT (test code = 75661) NEGATIVE NEGATIVE Testing is perfo rmed with Tom ALEXANDER 6800/8800 systems usingreal-time polymerase chain reaction (PCR) method. A negative result does not exclude low level infection, specimensampling error, or collection error. CHLAMYDIA, NAAT (test code = 22888) NEGATIVE NEGATIVE Testing is perfo rmed with Tom ALEXANDER 6800/8800 systems usingreal-time polymerase chain reaction (PCR) method. A negative result does not exclude low level infection, specimensampling error, or collection error. [id number] 05:00:49* Test Item Value Reference Range Interpretation [...] this result as normal/abnormal. FSH + LH [id number] 05:00:07* Test Item Value Reference Range Interpretation Comme nts FOLLICLE STIM HORMONE (test code = 2700) [...] LUTEAL PHASE 1.0-11.4 IU/L POSTMENOPAUSAL 7.7-58.5 IU/L [id number] 05:00:07* Test Item Value Reference Range Interpretation Comme nts PROLACTIN (test code = 2800) 4.4 NG/ML 5.0-37.0 L NOTE: Methodolog y is Tom Alexander Electrochemiluminescence Immunoassay (ECLIA). Values obtained with different assays/manufacturers cannot be used interchangeably. Results should not be used as sole basis to establish the presence or absence of malignancy. [id number] 05:00:07* Test Item Value Reference Range Interpretation Comme [facility] ESTRADIOL (test code = 2505) 19.9 PG/ML [...] ESTRADIOL IN POSTMENOPAUSAL FEMALES, CONSIDER ULTRASENSITIVE ESTRADIOL ([facility] ORDER CODE 5678). METHODOLOGY IS TOM ALEXANDER ELECTROCHEMILUMINESCENT IMMUNOASSAY WITH A LIMIT OF DETECTION OF 17 PG/ML. RPR REFLEX TO T. PALLIDUM - [id number] 03:20:11* Test Item Value Reference Range Interpretation Comme nts RPR (test code = 09994) NON-REACTIVE NON-REACTIVE RPR TITER (test code = 3500) NOT INDIC. TITER NOT INDIC. CBC W/AUTO DIFF WITH [id number] 02:03:19* Test Item Value Reference Range Interpretation [...] 0.00-0.10 ABS NUCLEATED RBCS (test code = 36702) 0.00 K/UL 0.00-0.11 [facility] has important pathology staff changes effective 09/07/2022. New pathology staff will provide uninterrupted, excellent patient care and clinical consultation. See URL: [email or web address]. UNLESS OTHERWISE INDICATED, ALL TESTING PERFORMED AT [facility] [address] [place] [address] FINANCE SPECIALIST: FRANK GALVEZ M.D. [place] NUMBER [id number] [facility] [place]. [id number] Notes Date/Time Note Provider Source 2024-06-13 14:26:16 Chief Complaint Patient presents with Physical Patient is not fasting. Would like PET SCAN results Jackie Fall MA II [facility] 2023-12-11 13:49:20 Chief Complaint Patient presents with Blood Pressure Follow up on blood pressure Jackie Fall MA II [facility] 2023-11-06 13:30:13 Chief Complaint Patient presents with Blood Pressure Elevated blood pressure. She stopped taking her blood pressure medication February 2023 while going thru treatment for cervical cancer. She never continued medication Jackie Fall MA II [facility] 2023-04-06 11:40:00 [id number] [place] [id number] PATIENT NAME: RENE PAN ADMIT DATE: 04/06/23 ACCOUNT NO: [id number] ROOM NO: AGE: 57 REPORT TYPE: OPERATIVE REPORT SEX: F ADMITTING PHYSICIAN: ATTENDING PHYSICIAN:Lola Scott MD OPERATION DATE: 04/06/2023 PREOPERATIVE DIAGNOSIS: Cervical cancer. POSTOPERATIVE DIAGNOSIS: Cervical cancer. PROCEDURE: Exam under anesthesia, placement of Randal sleeve. SURGEON: Lola Scott MD. MANAGER ASSURANCE: RHIANNON Gomez. ANESTHESIA: General endotracheal. FINDINGS: The patient had a cervix that was flush with the vagina. There was no parametrial or sidewall thickening. Uterus sounded to about 8 cm. PROCEDURE IN DETAIL: The patient was brought to the operating room after adequate level of general anesthesia was achieved, she was placed in the dorsal lithotomy position, prepped and draped in usual sterile fashion. Exam under anesthesia performed. The above findings were noted. The cervix was grasped with a tenaculum. There was cervical stenosis. Endocervical canal was dilated. Some brown necrotic tissue was released. A 2-0 PDS suture was then placed at 2, 10, 8 and 4 o'clock. The Randal sleeve was inserted and secured to the suture. The region was irrigated. Good hemostasis was noted. The uterus sounded to 8 cm. Tenaculum was withdrawn. There were no complications. She tolerated the procedure well and was brought to recovery room in stable condition. Counts were correct x2. ESTIMATED BLOOD LOSS: Less than 10 mL Dictated By: Lola Scott MD Date Dictated: 04/06/2023 11:40:14 Date Transcribed: 04/06/2023 11:57:03 TBP/LEIF/HEM Receipt ID: [id number] Authenticated by Lola Scott MD On 04/07/2023 09:28:53 AM PATIENT NAME: RENE PAN at 0928 PATIENT NAME: RENE PAN [facility] 2023-04-04 15:56:00 [id number] [place] [address] PATIENT NAME: RENE PAN ADMIT DATE: ACCOUNT NO: [id number] ROOM NO: AGE: 57 REPORT TYPE: eELECTROCARDIOGRAM REPORT SEX: F ADMITTING PHYSICIAN: ATTENDING PHYSICIAN:Lola Scott MD Order: [id number] Test Reason : PREOP Test Date/Time Stamp: MonApr 04 2023 15:56:54 Blood Pressure : / mmHG Vent. Rate : 074 BPM Atrial Rate : 074 BPM P-R Int : 148 ms QRS Dur : 090 ms QT Int : 402 ms P-R-T Axes : 063 050 058 degrees QTc Int : 446 ms Normal sinus rhythm Normal ECG No previous ECGs available Confirmed by CARMELO DOE MD ([id number]) on 04/04/2023 5:24:23 PM Referred By: Lola Scott Confirmed by:ROE DOE MD at 2757 PATIENT NAME: RENE PAN [facility]
[2024-10-27] MEDS ORDERED: IPRATROPIUM BROM 0.5MG/2.5ML ONE (08:15)
[2024-10-27] MEDS ORDERED: LEVALBUTEROL 0.63 MG/3 ML NEB ONE (08:15)
[2024-10-27] MEDS ORDERED: NA CHLORIDE 0.9% 1,000 ML ONE (08:16)
[2024-10-27 08:29] LABS: Absolute Lymphocytes (CBC) 0.5 K/uL (0.7-4.9); Absolute Monocytes 0.3 K/uL (0.1-1.3); Basophils % 0.5 % (0-1.3); Eosinophils % 0.8 % (0-4.4); Hematocrit 38.1 % (36.0-45.0); Lymphocytes % 19.3 % (15.3-44.8); MCH 29.6 pg (27.0-35.0); MCHC 34.1 g/dL (32.0-36.0); Monocytes % 9.5 % (3.3-12.3); Neutrophils % 69.9 % (41.7-73.7); Nucleated Red Blood Cells % 0.1 % (0-0); Platelets 211 thou/uL (152-406); RBC Red Blood Cell Count 4.38 M/uL (3.86-4.86); Red Cell Distribution Width 15.3 % (12.1-15.2)
[2024-10-27 08:35] LABS: PT Prothrombin Time 10.7 SECONDS (10-13.0); Protime INR 0.94
[2024-10-27 08:45] LABS: Influenza A Ag Negative; Influenza B Ag Negative; SARS-CoV-2 Antigen Rapid Res Negative (Negative)
[2024-10-27 08:48] LABS: ALT/SGPT 67 U/L (13-56); AST/SGOT 35 U/L (15-37); Albumin 3.3 g/dL (3.4-5.0); Albumin/Globulin Ratio 0.8 (1.1-1.8); Alkaline Phosphatase 94 U/L (45-117); Anion Gap 9.9 mEq/L (5.0-15.0); BUN Blood Urea Nitrogen 36 mg/dL (7-18); Bicarbonate 27 mEq/L (21-32); Bilirubin Direct < 0.2 mg/dL (0-0.2); Bilirubin Indirect, Calculated 0.1 mg/dL (0.2-0.8); Bilirubin Total 0.3 mg/dL (0.2-1.0); Globulin 4.3 g/dL (2.3-3.5); Glomerular Filtration Rate 36 ml/min (=/>90); Glucose Level 159 mg/dL (74-106); Magnesium 2.3 mg/dL (1.6-2.4); NT PRO-BNP 28 pg/mL (<125); Potassium 2.9 mEq/L (3.5-5.1); Protein, Total 7.6 g/dL (6.4-8.2); Sodium Level 137 mEq/L (136-145); Troponin High Sensitivity 10.5 pg/mL (<58.9)
[2024-10-27] MEDS ORDERED: LEVALBUTEROL 1.25 MG/3 ML NEB ONE (09:27)
[2024-10-27] MEDS ORDERED: METHYLPREDNISOLONE 125 MG INJ ONE (09:27)
[2024-10-27] MEDS ORDERED: predniSONE 20 MG TAB ONE (09:27)
[2024-10-27] MEDS ORDERED: levoFLOXacin 750 MG TAB ONE (09:27)
[2024-10-27] MEDS ORDERED: POTASSIUM 25 MEQ EFFERV TAB ONE (09:28)
[2024-10-27 09:40] LABS: Blood Morphology Comment NOT SEEN (NOT SEEN); Platelet Estimate ADEQ; White Blood Cell Scan OK (OK)
--- NOTE | 2024-10-27 10:20 | RAD REPORT ---
EXAM: CT CHEST, ABDOMEN AND PELVIS WITHOUT CONTRAST CLINICAL INDICATION: Chest and abdominal pain. Diarrhea TECHNIQUE: CT chest, abdomen and pelvis was performed, without IV contrast, as per department protoco l. Axial, sagittal and coronal reconstructions were obtained. One or more of the following dose reduction techniques were used: Automated exposure control, adjustment of the mA and/or kV according to the patient size, and/or iterative reconstruction. Unless otherwise specified, incidental findings do not require dedicated imaging follow-up. The lack of IV and oral contrast limits evaluation of the mediastinum, art, vessels, organs and doni l. COMPARISON: None FINDINGS: Lungs are clear. No mediastinal or hilar lymphadenopathy seen. No pleural effusion. No pericardial effusion. Cholecystectomy. The liver, spleen, pancreas, adrenals and right kidney grossly normal. 2 mm calculus left kidney. No hydronephrosis. No adnexal mass. The distal appendix is mildly thickened. No stranding within the adjacent fat. Right rectus abdominis muscle is mildly thickened without significant change from August 2024. Ther e is stranding within the adjacent fat. This is without significant change from August 2024 but has developed 2020. No abscess seen. There is no evidence of diverticulitis Apparent mild thickening of the wall of portions of the colon. IMPRESSION: Mild enlargement of the distal appendix could indicate tip appendicitis or be a normal finding for th is patient and should be correlated clinically. Tiny nonobstructing left renal calculus. Mild thickening of the rectus abdominis muscle with mild stranding in the adjacent fat may represent a myositis. Hematoma probably less likely. Apparent mild thickening of the wall portions of the colon. This can be seen with a mild colitis or i ncomplete distention.
--- NOTE | 2024-10-27 10:20 | RAD REPORT ---
Procedure: Chest Single View HISTORY: Cough COMPARISON: July 2024 FINDINGS: The lungs appear clear of acute infiltrate. No significant pleural effusion noted. The heart is normal size.. Central venous catheter in place IMPRESSION: No acute abnormality is displayed.
--- NOTE | 2024-10-27 10:32 | EDPHYS ---
Physician Documentation [facility] Name: Maylin Carlton Age: 59 yrs Sex: Female : 1965 Arrival Date: 10/27/2024 Time: 07:42 Bed 20 Private MD: LEI Physician Og Barnett HPI: 10/27 09:20 This 59 yrs old Female presents to ER via Ambulatory with complaints of rachael Fever, Cough, Shortness Of Breath. 09:20 The patient reports fever, that was measured at 100 degrees Fahrenheit. Onset: The rachael symptoms/episode began/occurred 2 day(s) ago. Modifying factors: there are no obvious modifying factors. Associated signs and symptoms: Pertinent positives:. Historical: - Allergies: 07:52 NKA; ll1 - PMHx: 07:52 Asthma; cervical cancer; Hypertensive disorder; ll1 - PSHx: 07:52 Cholecystectomy; ll1 - Immunization history:: Adult Immunizations up to date. - Infectious Disease History:: Denies. - Social history:: Smoking status: Patient reports the use of cigarette tobacco products, smokes .20 packs per day. ROS: 09:22 Eyes: Negative for injury, pain, redness, and discharge, ENT: Negative for injury, rachael pain, and discharge, Neck: Negative for injury, pain, and swelling, Cardiovascular: Negative for chest pain, palpitations, and edema, Abdomen/GI: Negative for abdominal pain, nausea, vomiting, diarrhea, and constipation, Back: Negative for injury and pain, : Negative for injury, bleeding, discharge, and swelling, MS/Extremity: Negative for injury and deformity, Skin: Negative for injury, rash, and discoloration, Neuro: Negative for headache, weakness, numbness, tingling, and seizure, Psych: Negative for depression, anxiety, suicide ideation, homicidal ideation, and hallucinations, Allergy/Immunology: Negative for hives, rash, and allergies, Endocrine: Negative for neck swelling, polydipsia, polyuria, polyphagia, and marked weight changes, Hematologic/Lymphatic: Negative for swollen nodes, abnormal bleeding, and unusual bruising, 09:22 Constitutional: Positive for body aches, chills, fatigue, fever, malaise, 09:22 Respiratory: Positive for cough, with no reported sputum, shortness of breath, wheezing, expiratory, Exam: 09:22 Constitutional: This is a well developed, well nourished patient who is awake, alert, rachael and in no acute distress. Head/Face: Normocephalic, atraumatic. Eyes: Pupils equal round and reactive to light, extra-ocular motions intact. Lids and lashes normal. Conjunctiva and sclera are non-icteric and not injected. Cornea within normal limits. Periorbital areas with no swelling, redness, or edema. ENT: Nares patent. No nasal discharge, no septal abnormalities noted. Tympanic membranes are normal and external auditory canals are clear. Oropharynx with no redness, swelling, or masses, exudates, or evidence of obstruction, uvula midline. Mucous membranes moist. Neck: Trachea midline, no thyromegaly or masses palpated, and no cervical lymphadenopathy. Supple, full range of motion without nuchal rigidity, or vertebral point tenderness. No Meningismus. Chest/axilla: Normal chest wall appearance and motion. Nontender with no deformity. No lesions are appreciated. Cardiovascular: Regular rate and rhythm with a normal S1 and S2. No gallops, murmurs, or rubs. Normal PMI, no JVD. No pulse deficits. Abdomen/GI: Soft, non-tender, with normal bowel sounds. No distension or tympany. No guarding or rebound. No evidence of tenderness throughout. Back: No spinal tenderness. No costovertebral tenderness. Full range of motion. Female : Normal external genitalia. Skin: Warm, dry with normal turgor. Normal color with no rashes, no lesions, and no evidence of cellulitis. MS/ Extremity: Pulses equal, no cyanosis. Neurovascular intact. Full, normal range of motion., bilateral aka Neuro: Awake and alert, GCS 15, oriented to person, place, time, and situation. Cranial nerves II-XII grossly intact. Motor strength 5/5 in all extremities. Sensory grossly intact. Cerebellar exam normal. Normal gait. Psych: Awake, alert, with orientation to person, place and time. Behavior, mood, and affect are within normal limits. 09:22 Respiratory: the patient does not display signs of respiratory distress, Respirations: normal, Breath sounds: bronchial sounds, that are mild, are scattered, decreased breath sounds, that are moderate, are located in both bases, rhonchi, that are mild, are scattered, wheezing: expiratory 09:22 Musculoskeletal/extremity: DVT Exam: No signs of deep vein thrombosis. no pain, no swelling, no tenderness, negative Homans' sign noted on exam, no appreciated bluish discoloration, no erythema, no increased warmth, Vital Signs: 07:53 BP 119 / 82; Pulse 76; Resp 20; Temp 98.1(O); Pulse Ox 96% on R/A; Weight 86.18 kg; ll1 Height 5 ft. 0 in. ; Pain 0/10; 08:00 BP 101 / 77; Pulse 79; Resp 18; Temp 97.8; Pulse Ox 93% ; am7 09:40 BP 109 / 49; Pulse 66; Resp 21; Pulse Ox 97% on Nebulizer Mask; hb 10:50 BP 112 / 68; Pulse 89; Resp 21; Pulse Ox 97% on R/A; hb 07:53 Body Mass Index 37.11 (86.18 kg, 152.4 cm) ll1 07:53 Pain Scale: Adult ll1 MDM: 07:56 Medical Screening Exam initiated [facility] 09:24 Antibiotic administration: The patient is discharged and will get outpatient [facility] antibiotics, Levaquin. Differential diagnosis: Anemia Anxiety Reaction asthma, Bronchitis CHF exacerbation, Chronic Obstructive Pulmonary Disease viral Infection, bacterial infection, URI, bronchitis, pneumonia UTI, Myocardial Infarction pneumonia, Pneumothorax. Differential Diagnosis: Obstructed Airway Bronchitis Influenza Upper Respiratory Infection Sinusitis Pharyngitis Asthma Exacerbation Viral Syndrome Pneumonia. Immunization status: Influenza vaccine: within last 5 years. Data reviewed: vital signs, nurses notes, lab test result(s), EKG, radiologic studies, CT scan. Consideration of Admission/Observation Escalation of care including admission/observation considered. I considered the following discharge prescriptions or medication management in the emergency department Medications were administered in the Emergency Department. See MAR. Independent interpretation of the following test(s) in the Emergency Department EKG: See my EKG interpretation above CT Scan: My interpretation is ct cap. Test considered but Not performed: Ultrasound no 2 d echo. Historians other than the Patient: pt well informed. Care significantly affected by the following chronic conditions: Hypertension, Obesity, asthma , smoker. 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 10/27 07:57 Order name: Basic Metabolic Panel; Complete Time: 08:59 rachael 10/27 07:57 Order name: CBC with Diff; Complete Time: 10:29 rachael 10/27 07:57 Order name: LFT's; Complete Time: 08:59 rachael 10/27 07:57 Order name: Magnesium; Complete Time: 08:59 rachael 10/27 07:57 Order name: NT PRO-BNP; Complete Time: 08:59 rachael 10/27 07:57 Order name: PT-INR; Complete Time: 08:59 rachael 10/27 07:57 Order name: Troponin HS; Complete Time: 08:59 rachael 10/27 07:57 Order name: COVID-19 Ag + Flu A+B Ag; Complete Time: 08:59 rachael 10/27 08:32 Order name: CBC Smear Scan; Complete Time: 10:29 EDMS 10/27 07:57 Order name: XRAY Chest (1 view); Complete Time: 10:29 [facility] 10/27 09:20 Order name: CT Chest Abdomen Pelvis W/O Contrast; Complete Time: 10:29 rachael 10/27 07:57 Order name: Cardiac monitoring; Complete Time: 08:22 rachael 10/27 07:57 Order name: EKG - Nurse/Tech; Complete Time: 08:51 rachael 10/27 07:57 Order name: IV Saline Lock; Complete Time: 08:19 rachael 10/27 07:57 Order name: Labs collected and sent; Complete Time: 08:19 [facility] 10/27 07:57 Order name: O2 Per Protocol; Complete Time: 08:19 rachael 10/27 07:57 Order name: O2 Sat Monitoring; Complete Time: 08:19 rachael 10/27 09:00 Order name: PO challenge: juice x 2; Complete Time: 09:30 rachael Administered Medications: 08:22 Drug: NS 0.9% IV 1000 ml IV at 1 bolus Per protocol; to be given as a bolus over 60 hb minutes Route: IV; Rate: 1 bolus; Site: right antecubital; 09:39 Follow up: Response: No adverse reaction; IV Status: Completed infusion; IV Intake: hb 1000ml 08:22 Drug: Levalbuterol Inhalation 2.5 mg Inhalation once Route: Inhalation; hb 09:39 Follow up: Response: No adverse reaction hb 08:22 Drug: Ipratropium Inhalation Aerosol 0.5 mg Inhalation once Route: Inhalation; hb 09:40 Follow up: Response: No adverse reaction hb 09:38 Drug: Potassium PO Effervescent Tablet 50 mEq PO once; dissolve in 4 ounces of water or hb juice Route: PO; 10:14 Follow up: Response: No adverse reaction hb 09:39 Drug: MethylPrednisoLONE IVP 125 mg IVP once Route: IVP; Site: right antecubital; hb 10:14 Follow up: Response: No adverse reaction hb 09:39 Drug: predniSONE PO 60 mg PO once Route: PO; hb 10:14 Follow up: Response: No adverse reaction hb 09:39 Drug: LevOfloxacin PO 750 mg PO once Route: PO; hb 10:14 Follow up: Response: No adverse reaction hb 09:39 Drug: Levalbuterol Inhalation 2.5 mg Inhalation once Route: Inhalation; hb 10:10 Follow up: Response: No adverse reaction hb Disposition Summary: 10/27/24 10:31 Discharge Ordered Notes: Location: Home rachael Problem: new rachael Symptoms: have improved rachael Condition: Stable rachael Diagnosis - Fever, unspecified rachael - COPD/ Chronic obstructive pulmonary disease with (acute) exacerbation rachael - Acute upper respiratory infection, unspecified rachael - Tobacco abuse counseling rachael - Tobacco use rachael - Hypokalemia rachael - Acute kidney failure, unspecified rachael Followup: rachael - With: Private Physician - When: 2 - 3 days - Reason: Recheck today's complaints, Continuance of care, Re-evaluation by your physician Followup: rachael - With: Donta Akers MD - When: 2 - 3 days - Reason: Recheck today's complaints, Re-evaluation by your physician Followup: rachael - With: Deana Negron MD - When: 2 - 3 days - Reason: Recheck today's complaints, Re-evaluation by your physician Discharge Instructions: - Discharge Summary Sheet rachael - Chronic Bronchitis, Adult rachael - Chronic Obstructive Pulmonary Disease rachael - Potassium Content of Foods rachael - Self-Destructive Behavior rachael - Steps to Quit Smoking rachael - Health Risks of Smoking rachael - Upper Respiratory Infection, Adult rachael - Cool Mist Vaporizer rachael - Chronic Obstructive Pulmonary Disease Exacerbation rachael - Chronic Obstructive Pulmonary Disease, [id number] rachael - Upper Respiratory Infection, Adult, Odih-zx-Joic rachael - Acute Kidney Injury, Adult rachael - Cough, Adult rachael - Chronic Kidney Disease, Adult rachael Forms: - Medication Reconciliation Form rachael - Antibiotic Education rachael - Prescription Opioid Use [facility] - Patient Portal Instructions [facility] - Leadership Thank You Letter [facility] Prescriptions: - albuterol sulfate 90 mcg/actuation Inhalation HFA Aerosol Inhaler - inhale 2 puff INHALATION route every 4-6 hours as needed for shortness of rachael breath or wheezing; 12 unit; Refills: 0, Product Selection Permitted - Tessalon Perles 100 mg Oral capsule - take 2 capsule ORAL route every 8 hours As needed; 30 capsule; Refills: 0, [facility] Product Selection Permitted - Albuterol Sulfate 2.5 mg /3 mL (0.083 %) Inhalation Solution for Nebulization - inhale 1 unit NEBULIZATION route every 4-6 hours As needed prn; 36 unit; [facility] Refills: 0, Product Selection Permitted - Prednisone 20 mg Oral Tablet - take 2 tablets ORAL route once daily for 5 days; 10 tablet; Refills: 0, Product rachael Selection Permitted - levofloxacin 750 mg Oral tablet - take 1 tablet ORAL route once daily 10/28/24; 7 tablet; Refills: 0, Product rachael Selection Permitted Signatures: Dispatcher [employer] EDMS Og Barnett MD MD cha Baxter, Heather, RN RN hb Lewis, Lynsay, RN RN ll1 Corrections: (The following items were deleted from the chart) 07:57 07:57 BASIC METABOLIC PANEL+C.LAB.BRZ ordered. EDMS EDMS 07:57 07:57 CBC+H.LAB.BRZ ordered. EDMS EDMS 07:57 07:57 HEPATIC FUNCTION+C.LAB.BRZ ordered. EDMS EDMS 07:57 07:57 MAGNESIUM+C.LAB.BRZ ordered. EDMS EDMS 07:57 07:57 PROBNP+C.LAB.BRZ ordered. EDMS EDMS 07:57 07:57 PROTIME (+INR)+COAG.LAB.BRZ ordered. EDMS EDMS 07:57 07:57 Troponin High Sensitivity+C.LAB.BRZ ordered. EDMS EDMS 07:57 07:57 COVID-19 Ag + Flu A+B Ag+I.LAB.BRZ ordered. EDMS EDMS 07:58 07:58 Chest Single View+RAD.RAD.BRZ ordered. EDMS EDMS 07:58 07:58 Chest For PE Angio+CT.RAD.BRZ ordered. EDMS EDMS 09:20 09:20 Chest Abdomen Pelvis Wo Con+CT.RAD.BRZ ordered. EDMS EDMS
--- NOTE | 2024-10-27 10:32 | ER ---
Nurse's Notes [facility] Name: Maylin Carlton Age: 59 yrs Sex: Female : 1965 Arrival Date: 10/27/2024 Time: 07:42 Bed 20 Private MD: Diagnosis: Fever, unspecified;COPD/ Chronic obstructive pulmonary disease with (acute) exacerbation;Acute upper respiratory infection, unspecified;Tobacco abuse counseling;Tobacco use;Hypokalemia;Acute kidney failure, unspecified Presentation: 10/27 07:53 Chief complaint: Patient states: Cough, SOB with exertion, chills, diarrhea since 10/20 ll1 after getting home from a cruise to [facility]. Coronavirus screen: Client indicates they have traveled out of the [place] in the last 14 days. Client traveled to: [facility] chills, congestion, cough unrelated to allergies, diarrhea, fatigue, nausea, shortness of breath, vomiting. Client presents with at least one sign or symptom that may indicate coronavirus-19. Standard/surgical mask placed on the client. Ebola Screen: Patient denies travel to an Ebola-affected area in the 21 days before illness onset. Initial Sepsis Screen: Does the patient meet any 2 criteria? No. Patient's initial sepsis screen is negative. Does the patient have a suspected source of infection? No. Patient's initial sepsis screen is negative. Risk Assessment: Do you want to hurt yourself or someone else? Patient reports no desire to harm self or others. Onset of symptoms was October 20, 2024. 07:53 Method Of Arrival: Ambulatory ll1 07:53 Acuity: JODI 3 ll1 Triage Assessment: 07:45 General: Appears uncomfortable, Behavior is cooperative, appropriate for age, anxious, ll1 Reports chills for fatigue for. Pain: Denies pain. Neuro: No deficits noted. Respiratory: Reports shortness of breath on exertion cough that is Onset: The symptoms/episode began/occurred 10/20, the patient has moderate shortness of breath. GI: Reports diarrhea. Historical: - Allergies: 07:52 NKA; ll1 - PMHx: 07:52 Asthma; cervical cancer; Hypertensive disorder; ll1 - PSHx: 07:52 Cholecystectomy; ll1 - Immunization history:: Adult Immunizations up to date. - Infectious Disease History:: Denies. - Social history:: Smoking status: Patient reports the use of cigarette tobacco products, smokes .20 packs per day. Screenin:48 [facility] ED Fall Risk Assessment (Adult) History of falling in the last 3 months, hb including since admission No falls in past 3 months (0 pts) Confusion or Disorientation No (0 pts) Intoxicated or Sedated No (0 pts) Impaired Gait No (0 pts) Mobility Assist Device Used No (0 pt) Altered Elimination No (0 pt) Score/Fall Risk Level 0 - 2 = Low Risk Oriented to surroundings, Maintained a safe environment, Educated pt \T\ family on fall prevention, incl call for assistance when getting out of bed. Abuse screen: Denies threats or abuse. Denies injuries from another. Nutritional screening: No deficits noted. Tuberculosis screening: No symptoms or risk factors identified. Assessment: 08:05 General: Appears in no apparent distress. Behavior is calm, cooperative. Pain: Denies hb pain. Neuro: Level of Consciousness is awake, alert, obeys commands, Oriented to person, place, time, situation. Cardiovascular: Patient's skin is warm and dry. Rhythm is regular. Respiratory: Reports shortness of breath cough that is Airway is patent Respiratory effort is even, mildly labored Respiratory pattern is regular, symmetrical. GI: No signs and/or symptoms were reported involving the gastrointestinal system. : No signs and/or symptoms were reported regarding the genitourinary system. EENT: No signs and/or symptoms were reported regarding the EENT system. Derm: Skin is pink, warm \T\ dry. Musculoskeletal: No signs and/or symptoms reported regarding the musculoskeletal system. 09:40 Reassessment: Patient appears in no apparent distress at this time. No changes from hb previously documented assessment. Patient and/or family updated on plan of care and expected duration. Pain level reassessed. 10:50 Reassessment: Patient appears in no apparent distress at this time. No changes from hb previously documented assessment. Patient and/or family updated on plan of care and expected duration. Pain level reassessed. Vital Signs: 07:53 BP 119 / 82; Pulse 76; Resp 20; Temp 98.1(O); Pulse Ox 96% on R/A; Weight 86.18 kg; ll1 Height 5 ft. 0 in. ; Pain 0/10; 08:00 BP 101 / 77; Pulse 79; Resp 18; Temp 97.8; Pulse Ox 93% ; am7 09:40 BP 109 / 49; Pulse 66; Resp 21; Pulse Ox 97% on Nebulizer Mask; hb 10:50 BP 112 / 68; Pulse 89; Resp 21; Pulse Ox 97% on R/A; hb 07:53 Body Mass Index 37.11 (86.18 kg, 152.4 cm) ll1 07:53 Pain Scale: Adult ll1 ED Course: 07:46 Patient arrived in ED. sj2 07:48 Arm band placed on Patient placed in an exam room, on a stretcher. ll1 07:55 Triage completed. ll1 07:56 Og Barnett MD is Attending Physician. rachael 08:01 Warm blanket given. am7 08:15 Patient has correct armband on for positive identification. Bed in low position. Call hb light in reach. Side rails up X 1. Provided Education on: tests, result times, call light. Client placed on continuous cardiac and pulse oximetry monitoring. NIBP monitoring applied. gambling monitor on. Pulse ox on. NIBP on. 08:19 Inserted saline lock: 20 gauge in right antecubital area, using aseptic technique. am7 Blood collected. Flushed with 10 mL NS. 08:20 Initial lab(s) drawn, by ED staff, sent to lab. EKG done, by ED staff, reviewed by otto Barnett MD. 08:24 XRAY Chest (1 view) In Process Unspecified. EDMS 08:54 Radha Wilson, CRISTOBAL is Primary Nurse. 10:08 CT Chest Abdomen Pelvis W/O Contrast In Process Unspecified. EDMS 10:31 Donta Akers MD is Referral Physician. rachael 10:31 Deana Negron MD is Referral Physician. rachael 10:50 No provider procedures requiring assistance completed. IV discontinued, intact, hb bleeding controlled, No redness/swelling at site. Pressure dressing applied. Administered Medications: 08:22 Drug: NS 0.9% IV 1000 ml IV at 1 bolus Per protocol; to be given as a bolus over 60 hb minutes Route: IV; Rate: 1 bolus; Site: right antecubital; 09:39 Follow up: Response: No adverse reaction; IV Status: Completed infusion; IV Intake: hb 1000ml 08:22 Drug: Levalbuterol Inhalation 2.5 mg Inhalation once Route: Inhalation; hb 09:39 Follow up: Response: No adverse reaction hb 08:22 Drug: Ipratropium Inhalation Aerosol 0.5 mg Inhalation once Route: Inhalation; hb 09:40 Follow up: Response: No adverse reaction hb 09:38 Drug: Potassium PO Effervescent Tablet 50 mEq PO once; dissolve in 4 ounces of water or hb juice Route: PO; 10:14 Follow up: Response: No adverse reaction hb 09:39 Drug: MethylPrednisoLONE IVP 125 mg IVP once Route: IVP; Site: right antecubital; hb 10:14 Follow up: Response: No adverse reaction hb 09:39 Drug: predniSONE PO 60 mg PO once Route: PO; hb 10:14 Follow up: Response: No adverse reaction hb 09:39 Drug: LevOfloxacin PO 750 mg PO once Route: PO; hb 10:14 Follow up: Response: No adverse reaction hb 09:39 Drug: Levalbuterol Inhalation 2.5 mg Inhalation once Route: Inhalation; hb 10:10 Follow up: Response: No adverse reaction hb Medication: 08:48 VIS not applicable for this client. hb Intake: 09:39 IV: 1000ml; Total: 1000ml. hb Outcome: 10:31 Discharge ordered by . rachael 10:50 Discharged to home ambulatory, hb 10:50 Condition: stable 10:50 Discharge instructions given to patient, Instructed on discharge instructions, follow up and referral plans. medication usage, Demonstrated understanding of instructions, follow-up care, medications, Prescriptions given X x 5 10:52 Patient left the ED. hb Signatures: Dispatcher [employer] EDME Og Barnett MD MD cha Baxter, Heather, RN RN Stuart Camarillo RN RN ll1 [place] [facility] Jazmine Whittington am7
[2024-10-27 11:13] VITALS: TEMP 97.8
[2024-10-27 11:14] VITALS: O2SAT 97
[2024-10-27 11:16] VITALS: BP 112/68
--- NOTE | 2024-10-30 12:49 | EKG ---
Test Date: 2024-10-27 Test Time: 08:47:01 Robotic Technician: AM MEASUREMENT RESULTS: Intervals: Rate: 72 NC: 150 QRSD: 92 QT: 432 QTc: 473 [place]: P: 61 NC: 150 QRS: 55 T: 60 INTERPRETIVE STATEMENTS: Sinus rhythm with occasional premature ventricular complexes Otherwise normal ECG Compared to ECG 08/05/2024 13:37:09 Ventricular premature complex(es) now present Electronically Signed On 10-30-24 12:41:07 CDT by Franck Jung
== END 2024-10-27 10:52 | disposition home or self-care (01) ==
LOC: ER 07:42
DX: J06.9 Acute upper respiratory infection, unspecified (principal); J44.1 Chronic obstructive pulmonary disease with (acute) exacerbation; E87.6 Hypokalemia; N17.9 Acute kidney failure, unspecified; Z72.0 Tobacco use; Z71.6 Tobacco abuse counseling; Z11.52 Encounter for screening for COVID-19
CPT/HCPCS: 36415; 71045; 71250; 74176; 80048; 80076; 83735; 83880; 84484; 85025; 85610; 87428; 93005; 96361; 96374; 99285; J2919; J7030; J7512; J7614; J7644